=== PATIENT | male | born 1955 | race Caucasian/White ===

== ENCOUNTER → 2017-10-04 10:00 | Outpatient (CLI) | payer OTHER, SELFPAY ==
[2017-10-04 10:04] LABS: Bacteria 0 SEEN /hpf (None Seen); Mucous, Urine 0 SEEN /hpf (<or=2+); Red Blood Cells-Urine 0 SEEN /hpf (0-5); Squamous Epithelial Cells - UA 0 SEEN /hpf (0-5); White Blood Cells 0 SEEN /hpf (0-5)
[2017-10-04 12:30] LABS: ALB/GLOB Ratio 1.1 RATIO (0.9-2.4); AST(SGOT) 18 U/L (15-37); Alanine Aminotransfer ALT/SGPT 30 U/L (16-61); Albumin, Serum 3.9 g/dL (3.2-5.0); Alkaline Phosphatase 120 U/L (45-117); Anion Gap 9 (5-15); BUN 12 mg/dL (7-18); BUN/Creat Ratio 14.5 RATIO (10-20); Calcium,Total 8.6 mg/dL (8.5-10.1); Chloride 106 mmol/L (98-107); Cholesterol 152 mg/dL (200); Creatinine, Serum 0.83 mg/dL (0.70-1.30); EST Glomerular Filtration Rate 100 mL/min (>60); Est Glom Filt Rate - Afr Amer 121 mL/min (>60); Globulin 3.5 g/dL (2.2-4.2); Glucose 95 mg/dL (74-106); High Density Lipoprotein 49 mg/dL; PSA,Total - Annual Screen 0.91 ng/mL (0.00-4.00); Protein, Total 7.4 g/dL (6.4-8.2); Sodium Level 141 mmol/L (136-145); Thyroid Stim Hormone (TSH) 1.82 uIU/mL (0.358-3.74); Triglycerides 82 mg/dL; Very Low Density Lipoprotein 16 mg/dL (5-40)
[2017-10-04 12:46] LABS: Color, Urine Yellow (Yellow); Glucose, Dipstick Normal (Normal); Ketone-Dipstick 5 mg/dl (Negative); Leukocyte Esterase-Dipstick Negative /ul (Negative); Nitrite-Dipstick Negative (Negative); Occult Blood-Urine 10 /ul (Negative); Protein-Dipstick Negative (Negative); Specific Gravity, Urine 1.015 (1.002-1.030); Urine Bilirubin Dipstick Negative (Negative); Urine Clarity Clear (Clear); Urine Urobilinogen Normal (Normal)
[2017-10-04 12:58] LABS: Absolute Lymphocyte Count 6.29 X10^3/ul (0.83-4.51); Absolute Neutrophil Count 3.6 X10^3/uL (2.0-7.7); Basophil# 0.03 X10^3/uL; Basophil% 0.3 % (0-1); Eosinophil# 0.13 X10^3/uL; Eosinophils% 1.2 % (0-5); Hematocrit 48.4 % (40-54); Hemoglobin 16.5 g/dl (13.0-16.5); Lymphocyte # 6.29 X10^3/ul (4.0); Lymphocyte % 58.2 % (19-41); Mean Corp Hgb Conc 34.1 g/gl (32-36); Mean Corpuscular Hgb 33.5 pg (27.0-32.0); Mean Corpuscular Volume 98.4 fL (80-94); Mean Platelet Vol. 10.6 fl (6.2-12.0); Monocyte# 0.77 X10^3/uL; Monocyte% 7.1 % (0-10); Neutrophil # 3.56 X10^3/uL (2.7-7.7); Neutrophil % 32.9 % (47-70); Platelet Count 167 K/mm3 (150-450); RBC Distribution Width CV 12.7 % (11.6-14.6); RBC Distribution Width SD 45.1 fl (35.1-43.9); Red Blood Count 4.92 M/mm3 (4.6-6.2); White Blood Count 10.8 K/mm3 (4.4-11.0)
[2017-10-04 12:59] LABS: POSITIVE COUNT NO; POSITIVE DIFFERENTIAL YES; POSITIVE MORPHOLOGY NO
[2017-10-04 13:00] LABS: Differential Indicated SCAN CRITERIA MET
[2017-10-07 13:03] LABS: Pathologist Review Reviewed
== END ==
PROVIDERS: Family Provider Family Medicine; PCP Family Medicine; Visit Provider Family Medicine
DX: Z00.00 Encounter for general adult medical examination without abnormal findings (principal); Z13.29 Encounter for screening for other suspected endocrine disorder; Z13.220 Encounter for screening for lipoid disorders; Z12.5 Encounter for screening for malignant neoplasm of prostate; R06.02 Shortness of breath; Z87.891 Personal history of nicotine dependence
CPT/HCPCS: 36415; 80053; 80061; 81001; 84153; 84443; 85025; G0103

== ENCOUNTER → 2017-11-07 10:40 | Outpatient (CLI) | payer OTHER, SELFPAY ==
--- NOTE | 2017-11-08 06:03 | SPIR_ITS ---
Spirometry PFT Testing Spirometry PFT Testing: COMPLETE PULMONARY FUNCTION TEST INTERPRETATION Brief HPI: Patient is a 62 year old male, currently under the care of Dr. Araiza, who presents to [facility] for complete pulmonary function tests secondary to diagnosis of dyspnea on exertion. Respiratory therapist reports good effort and reproducible results. Interpretation: Forced expiration spirometry shows a moderate large airways obstructive ventilatory defect with an FEV1 of 66 % predicted. There is a significant bronchodilator response in FVC by ATS criteria. Spirograms are of good quality and plateau slowly, indicating slowly emptying areas of the lungs. The respiratory flow volume loop shows decreased expiratory flow rates at all lung volumes consistent with airway obstruction. No previous pulmonary function tests were available for review. Impression: Partially reversible moderate large airways obstructive ventilatory defect. Concomitant restriction cannot be excluded given decreased FVC. Consider lung volume measurements and DLCO for evaluation of COPD.
== END ==
PROVIDERS: Family Provider Family Medicine; PCP Family Medicine; Visit Provider Family Medicine
DX: R06.02 Shortness of breath (principal)
CPT/HCPCS: 94060

== ENCOUNTER → 2018-08-27 08:55 | Outpatient (CLI) | payer MEDICARE, BC, SELFPAY ==
--- NOTE | 2018-08-27 09:04 | US_ITS ---
PROCEDURES: ULTRASOUND AORTA REASON FOR EXAM: Male, 63 years old. Abdominal aortic aneurysm screening. History of tobacco use. TECHNIQUE: Ultrasound evaluation of the aorta was performed with real-time and static owens-scale imaging. COMPARISON: None. FINDINGS: There is no elongation or tortuosity of the abdominal aorta. The proximal, mid and distal abdominal aorta measure 2.7 x 2.5 cm, 1.6 x 2.1 cm and 1.7 x 2.0 cm in the AP and transverse dimensions respectively. Normal vascular flow. No significant intraluminal plaque. Common iliac arteries were not visualized. There is no demonstrated aneurysm.. US/Aorta IMPRESSION: Normal abdominal aorta. No abdominal aortic aneurysm. Electronically Signed: Carlos Otero MD at 7:39 EST , Service support ,
--- OUTSIDE RECORDS SUMMARY | 2018-10-29 05:30 | XMS RPT_ITS ---
:1955 Author Organization OHIP Care Team Providers Name Role Phone David Araiza Attending Unavailable David Araiza Referring Unavailable David Araiza Primary Care Unavailable David Araiza Attending Unavailable David Araiza Primary Care Unavailable David Araiza Attending Unavailable David Araiza Referring Unavailable David Araiza Primary Care Unavailable Tate Marrufo Attending Unavailable David Araiza Referring Unavailable PROBLEMS PROBLEMS No Problem Records FoundPROCEDURES PROCEDURES No Procedure Records FoundRESULTS RESULTS AORTA Observed: 08/27/2018 Status: F Source: SNELLING 9:04 AM [facility] REPOSITORY [facility] Imaging Services [address] [place] [address] Aorta MR#: [id number] Acct: [id number] Name: CHRISTIANO CRENSHAW Rep #: [id number] : 1955 M 63 From: Carlos Otero PCP: David Araiza MD Status: REG CLI Study: Aorta Date of Exam: 08/27/18 Exam# [id number] Ordering Dr: David Araiza MD PROCEDURES: ULTRASOUND AORTA REASON FOR EXAM: Male, 63 years old. Abdominal aortic aneurysm screening. History of tobacco use. TECHNIQUE: Ultrasound evaluation of the aorta was performed with real-time and static owens-scale imaging. COMPARISON: None. FINDINGS: There is no elongation or tortuosity of the abdominal aorta. The proximal, mid and distal abdominal aorta measure 2.7 x 2.5 cm, 1.6 x 2.1 cm and 1.7 x 2.0 cm in the AP and transverse dimensions respectively. Normal vascular flow. No significant intraluminal plaque. Common iliac arteries were not visualized. There is no demonstrated aneurysm.. US/Aorta IMPRESSION: Normal abdominal aorta. No abdominal aortic aneurysm. Electronically Signed: Carlos Otero MD at 7:39 EST , Service support , CC: David Araiza MD Coffee Taster: Signed SPIROMETRY PFT TESTING Observed: 11/08/2017 Status: F Source: SNELLING 6:03 AM [facility] REPOSITORY [facility] Pulmonary Services/Neurology [facility] [place] [address] MR#: [id number] Acct: [id number] Name: CHRISTIANO CRENSHAW Rep #: [id number] : 1955 62 From: Tate Marrufo MD Referring Dr: David Araiza MD Status: REG CLI Ordering Dr: Date: Location: PSN Sex: M C Spirometry PFT Testing Spirometry PFT Testing: COMPLETE PULMONARY FUNCTION TEST INTERPRETATION Brief HPI: Patient is a 62 year old male, currently under the care of Dr. Araiza, who presents to [facility] for complete pulmonary function tests secondary to diagnosis of dyspnea on exertion. Respiratory therapist reports good effort and reproducible results. Interpretation: Forced expiration spirometry shows a moderate large airways obstructive ventilatory defect with an FEV1 of 66 % predicted. There is a significant bronchodilator response in FVC by ATS criteria. Spirograms are of good quality and plateau slowly, indicating slowly emptying areas of the lungs. The respiratory flow volume loop shows decreased expiratory flow rates at all lung volumes consistent with airway obstruction. No previous pulmonary function tests were available for review. Impression: Partially reversible moderate large airways obstructive ventilatory defect. Concomitant restriction cannot be excluded given decreased FVC. Consider lung volume measurements and DLCO for evaluation of COPD. 11/08/17602 <Electronically signed by Tate Marrufo MD> Date Tate Marrufo MD CC: Date Dictated: 11/08/17600 Date Transcribed: 11/08/17600 Coffee Taster: IAM Signed COMPREHENSIVE METABOLIC Collected: 10/04/2017 Status: F Source: GAURANG GOMEZ 10:03 AM [facility] REPOSITORY Order Comment: Order Date: 10/04/17 Order Info: [id number] - CMP Order Info: [id number] - LIPID Order Info: [id number] - TSH Order Info: 2857-1 - PSA TYPE CODE TESTS RESULT OUT OF RANGE REFERENCE UNITS LAB L501.0100 74-106 mg/dL Normal GLU 95 Result Comment: Please note revised GLUCOSE reference range effective 2017. LAB L501.1000 7-18 mg/dL Normal BUN 12 LAB L501.1100 0.70-1.30 mg/dL Normal CREAT,SERUM 0.83 Result Comment: The validity of the calculated GFR AND GFRAA in patients over 70 years has not been determined. Clinical correlation is essential. LAB L501.1110 >60 mL/min Normal EST GFR 100 Result Comment: Non- GFR Calc LAB L501.1115 >60 mL/min Normal EST GFR - AA 121 Result Comment: GFR Calc LAB L501.1300 10-20 RATIO Normal BUN/CRE 14.5 LAB L501.1500 6.4-8.2 g/dL T Normal PROT 7.4 LAB L501.1800 3.2-5.0 g/dL Normal ALB 3.9 LAB L501.1950 2.2-4.2 g/dL Normal GLOB 3.5 LAB L501.2000 0.9-2.4 RATIO Normal A/G 1.1 LAB L501.2200 8.5-10.1 mg/dL CA Normal 8.6 LAB L501.4100 15-37 U/L Normal AST 18 LAB L501.4305 45-117 U/L High ALK P 120 LAB L501.4405 16-61 U/L Normal ALT 30 Result Comment: Please note revised ALT reference range effective 2017. LAB L501.4600 0.20-1.00 mg/dL Normal T BILI 0.80 LAB L501.5300 136-145 mmol/L Normal NA 141 LAB L501.5600 3.5-5.1 mmol/L Normal K 4.0 LAB L501.5900 98-107 mmol/L Normal CL 106 LAB L501.6100 21.0-32.0 mmol/L Normal CO2 26.0 LAB L501.6200 5-15 Normal GAP 9 Performed By: #### L500.4050, L500.4100, L501.9520, L501.9910, L100.0100 #### [facility] Laboratory [address] [place], [address] LIPID PROFILE Collected: 10/04/2017 Status: F Source: GAURANG 10:03 AM [facility] REPOSITORY Order Comment: Order Date: 10/04/17 Order Info: [id number] - CMP Order Info: [id number] - LIPID Order Info: [id number] - TSH Order Info: 2857-1 - PSA TYPE CODE TESTS RESULT OUT OF RANGE REFERENCE UNITS LAB L501.4900 200 mg/dL Normal CHOL 152 Result Comment: <200 mg/dL Desirable 200-240 mg/dL Borderline >240 mg/dL High Risk LAB L501.5000 mg/dL Normal TRIG 82 Result Comment: The drugs N-Acetylcysteine and Metamizole may falsely depress this assay. Serum Triglycerides Reference Interval Normal <150 mg/dL Borderline high 150 - 199 mg/dL High 200 - 499 mg/dL Very High > or = 500 mg/dL LAB L501.6400 mg/dL Normal HDL 49 Result Comment: The drugs N-Acetylcysteine and Metamizole may falsely depress this assay. Reference Range HDL <40 mg/dL Low HDL Cholesterol HDL >or= 60 mg/dL High HDL Cholesterol LAB L501.6500 0-130 mg/dL Normal LDL 87 LAB L501.6600 5-40 mg/dL Normal VLDL 16 Performed By: #### L500.4050, L500.4100, L501.9520, L501.9910, L100.0100 #### [facility] Laboratory [address] [place], [address] THYROID STIM HORMONE Collected: 10/04/2017 Status: F Source: GAURANG (TSH) 10:03 AM [facility] REPOSITORY Order Comment: Order Date: 10/04/17 Order Info: [id number] - CMP Order Info: [id number] - LIPID Order Info: [id number] - TSH Order Info: 2857-1 - PSA TYPE CODE TESTS RESULT OUT OF RANGE REFERENCE UNITS LAB L501.9520 0.358-3.74 uIU/mL Normal TSH 1.82 Performed By: #### L500.4050, L500.4100, L501.9520, L501.9910, L100.0100 #### [facility] Laboratory [address] [place], [address] PSA,TOTAL - ANNUAL Collected: 10/04/2017 Status: F Source: GAURANG SCREEN 10:03 AM [facility] REPOSITORY Order Comment: Order Date: 10/04/17 Order Info: [id number] - CMP Order Info: [id number] - LIPID Order Info: [id number] - TSH Order Info: 2857-1 - PSA TYPE CODE TESTS RESULT OUT OF RANGE REFERENCE UNITS LAB L501.9910 0.00-4.00 ng/mL Normal PSA,TOT 0.91 SCREEN Result Comment: This test was performed using the TPSA assay method for the Neuronex chemistry system. Values obtained with different assay methods cannot be used interchangably. When changing PSA assays in the course of monitoring a patient, additional sequential testing should be carried out to confirm baseline values. Performed By: #### L500.4050, L500.4100, L501.9520, L501.9910, L100.0100 #### [facility] Laboratory [address] [place], [address] CBC W/DIFF, AUTOMATED Collected: 10/04/2017 Status: C Source: GAURANG 10:03 AM [facility] REPOSITORY Order Comment: Order Date: 10/04/17 Order Info: [id number] - CBCD TYPE CODE TESTS RESULT OUT OF RANGE REFERENCE UNITS LAB L100.1000 4.4-11.0 K/mm3 Normal WBC 10.8 LAB L100.1200 4.6-6.2 M/mm3 Normal RBC 4.92 LAB L100.1300 13.0-16.5 g/dl Normal HGB 16.5 LAB L100.1400 40-54 % Normal HCT 48.4 LAB L100.1500 80-94 fL High MCV 98.4 LAB L100.1600 27.0-32.0 pg High MCH 33.5 LAB L100.1700 32-36 g/gl Normal MCHC 34.1 LAB L100.1810 11.6-14.6 % Normal RDW CV 12.7 LAB L100.1820 35.1-43.9 fl High RDW SD 45.1 LAB L100.1900 150-450 K/mm3 Normal PLT 167 LAB L100.2000 6.2-12.0 fl Normal MPV 10.6 LAB L100.2100 47-70 % Low NEUT% 32.9 LAB L100.2200 19-41 % High LY% 58.2 LAB L100.2300 0-10 % Normal MONO% 7.1 LAB L100.2400 0-5 % Normal EO% 1.2 LAB L100.2500 0-1 % Normal BASO% 0.3 LAB L100.2550 0.0-0.9 % Normal IM GRAN % 0.300 Result Comment: IG% - Immature Granulocytes (promyelocytes, myelocytes and metamyelocytes) > 1% indicates that a LEFT SHIFT is Present. LAB L100.2620 2.0-7.7 X10 3/uL Normal Absolute Neut 3.6 LAB L100.2720 0.83-4.51 X10 3/ul High Absolute Lymph 6.29 LAB L100.4500 SMEAR Normal COMMENT Result Comment: LYMPHOCYTOSIS NOTED, 2+ REACTIVE LYMPHOCYTES, RARE HYPERSEGMENTED NEUTROPHILS LAB L100.9900 Normal Reviewed PATH REV Result Comment: AMENDED REPORT 10/07/17 1303 PATH REV previously reported as: May foll Performed By: #### L500.4050, L500.4100, L501.9520, L501.9910, L100.0100 #### [facility] Laboratory [address] [place], [place], [address] URINALYSIS, COMPLETE Collected: 10/04/2017 Status: F Source: SNELLING 10:03 AM [facility] REPOSITORY Order Comment: How was Urine Obtained? CLEAN CATCH TYPE CODE TESTS RESULT OUT OF RANGE REFERENCE UNITS LAB L400.3000 Yellow COLOR Normal Yellow LAB L400.3050 Clear Normal CLARITY Clear LAB L400.3200 Normal mg/dl Normal GLUCOSE, UR Normal LAB L400.3300 Negative mg/dL Normal BILIRUBIN URINE Negative LAB L400.3400 Negative mg/dl High 5 KETONE UR LAB L400.3465 1.002-1.030 Normal SP.GR. DIPSTX 1.015 LAB L400.3550 5.0 - 8.0 pH UR Normal 8.0 LAB L400.3600 Negative mg/dl PROT Normal DIPSTX Negative LAB L400.3700 Normal mg/dl Normal UROBILI Normal LAB L400.3750 Negative Normal NITRITE UR Negative LAB L400.3780 Negative /ul High 10 OCCULT BLOOD-UR LAB L400.3800 Negative /ul LEUK Normal ESTERASE Negative LAB L400.4050 0-5 /hpf WBC 0 Normal SEEN LAB L400.4100 0-5 /hpf 0 Normal RBC-UA SEEN LAB L400.4150 0-5 /hpf SQUAM 0 Normal EPI SEEN LAB L400.4300 None Seen /hpf 0 Normal BACTERIA SEEN LAB L400.4350 <or=2+ /hpf 0 Normal MUCUS, URINE SEEN Performed By: #### L400.0001 #### [facility] Laboratory [address] [place], [address] ALLERGIES ALLERGIES No Allergies Records FoundENCOUNTERS ENCOUNTERS ADMIT/DISCHARGE ACCOUNT ADMITTING ENCOUNTER LOCATION SOURCE NUMBER CLASS 08/27/2018 [id number] Ambulatory [facility] 4 [facility] ing:US Repository 11/08/2017 [id number] Ambulatory BMSBuilding:W [place] 8 [facility] Repository 11/07/2017 [id number] Ambulatory [facility] 2 [facility] ing:PSN Repository 10/04/2017 [id number] Ambulatory [facility] 7 [facility] ing:MFPLAB Repository PAYERS PAYERS ENCOUNTER GUARANTOR PAYER SUBSCRIBER SOURCE 08/27/2018 CHRISTIANO Lundy Primary CHRISTIANO Vázquez [id number] Insurance:MEDICARE KENDALLDOB[facility] [id number] Number: Repository [address]Vgu: [phone] [id number] [phone] (HP) Date:2018-08-20 08/27/2018 Secondary CHRISTIANO Kamron [place] Insurance:ANTHEMPolic KENDALLDOB: Community y Number: [id number] [id number] Repository Date:9221-58-08QT [address] [place] [address]MZ: 08/27/2018 Tertiary NOT GIVENUNK [place] Insurance:SELF PAY [facility] Number: Effective Repository Date:2018-08-20 11/08/2017 Christiano E Primary ART Vázquez [id number] Insurance:MEDICAL KENDALLDOB: [facility] [id number] Number: Repository [id number]: [id number] [phone] Date:5272-38-62IO [address] () [address] [place] [address]AY: 11/08/2017 Secondary NOT GIVENUNK [place] Insurance:SELF PAY [facility] Number: Effective Repository Date:2017-11-08 11/07/2017 Christiano E Primary ART Vázquez [id number] Insurance:MEDICAL KENDALLDOB: [facility] [id number] Number: Repository [id number]: [id number] [phone] Date:1734-22-80GF [address] () [address] [address]KK: 11/07/2017 Secondary NOT GIVENUNK [place] Insurance:SELF PAY [facility] Number: Effective Repository Date:2017-10-07 10/04/2017 Christiano Lundy Primary ART Farooq [place] [id number] Insurance:MEDICAL KENDALLDOB[facility] [id number] Number: Repository [id number]: [id number] [phone] Date:4650-10-09NM [address] ([address]) [address] [address]MQ: 10/04/2017 Secondary NOT GIVENUNK [place] Insurance:SELF PAY [facility] Number: Effective Repository Date:2017-10-04
== END ==
PROVIDERS: Family Provider Family Medicine; PCP Family Medicine; Referring Provider Family Medicine; Visit Provider Family Medicine
DX: Z13.6 Encounter for screening for cardiovascular disorders (principal); I10 Essential (primary) hypertension
CPT/HCPCS: 76775

== ENCOUNTER → 2020-02-24 10:45 | Outpatient (CLI) | payer MEDICARE, BC, SELFPAY ==
[2020-02-24 10:50] LABS: Bacteria 0 SEEN /hpf (None Seen); Mucous, Urine 0 SEEN /hpf (<or=2+); Red Blood Cells-Urine 0 SEEN /hpf (0-5); Squamous Epithelial Cells - UA 0 SEEN /hpf (0-5); White Blood Cells 0 SEEN /hpf (0-5)
[2020-02-24 12:38] LABS: Color, Urine Yellow (Yellow); Glucose, Dipstick Normal (Normal); Ketone-Dipstick Negative (Negative); Leukocyte Esterase-Dipstick Negative /ul (Negative); Nitrite-Dipstick Negative (Negative); Occult Blood-Urine 25 /ul (Negative); Protein-Dipstick Negative (Negative); Urine Bilirubin Dipstick Negative (Negative); Urine Clarity Sl. Cloudy (Clear); Urine Urobilinogen Normal (Normal); Urine pH 6.5 (5.0 - 8.0)
[2020-02-24 12:40] LABS: Absolute Lymphocyte Count 4.48 X10^3/uL (0.83-4.51); Absolute Neutrophil Count 3.1 X10^3/uL (2.0-7.7); Basophil# 0.04 X10^3/uL; Basophil% 0.5 % (0-1); Eosinophil# 0.16 X10^3/uL; Eosinophils% 1.8 % (0-5); Hematocrit 45.4 % (40-54); Hemoglobin 15.5 g/dL (13.0-16.5); Lymphocyte # 4.48 X10^3/ul (4.0); Lymphocyte % 51.7 % (19-41); Mean Corp Hgb Conc 34.1 g/dL (32-36); Mean Corpuscular Hgb 33.3 pg (27.0-32.0); Mean Corpuscular Volume 97.6 fL (80-94); Mean Platelet Vol. 10.9 fl (6.2-12.0); Monocyte# 0.79 X10^3/uL; Monocyte% 9.1 % (0-10); NRBC Flagged by Analyzer 0 % (0-5); Neutrophil # 3.14 X10^3/uL (2.7-7.7); Neutrophil % 36.3 % (47-70); Platelet Count 161 K/mm3 (150-450); RBC Distribution Width CV 12.1 % (11.6-14.6); RBC Distribution Width SD 43.5 fl (35.1-43.9); Red Blood Count 4.65 M/mm3 (4.6-6.2); White Blood Count 8.7 K/mm3 (4.4-11.0)
[2020-02-24 13:04] LABS: ALB/GLOB Ratio 1.1 RATIO (0.9-2.4); AST(SGOT) 17 U/L (15-37); Alanine Aminotransfer ALT/SGPT 29 U/L (16-61); Albumin, Serum 3.8 g/dL (3.2-5.0); Alkaline Phosphatase 99 U/L (45-117); Anion Gap 3 (5-15); BUN 15 mg/dL (7-18); BUN/Creat Ratio 16.1 RATIO (10-20); Calcium,Total 8.9 mg/dL (8.5-10.1); Chloride 102 mmol/L (98-107); Creatinine, Serum 0.93 mg/dL (0.70-1.30); EST Glomerular Filtration Rate 86 mL/min (>60); Est Glom Filt Rate - Afr Amer 104 mL/min (>60); Globulin 3.4 g/dL (2.2-4.2); Glucose 106 mg/dL (74-106); Protein, Total 7.2 g/dL (6.4-8.2); Sodium Level 137 mmol/L (136-145)
== END ==
PROVIDERS: PCP Family Medicine; Referring Provider Family Medicine; Visit Provider Family Medicine
DX: I10 Essential (primary) hypertension (principal)
CPT/HCPCS: 36415; 80053; 81001; 85025

== ENCOUNTER → 2020-03-04 14:28 | Outpatient (CLI) | payer MEDICARE, BC, SELFPAY ==
--- NOTE | 2020-03-04 14:31 | US_ITS ---
STUDY: NECK SOFT TISSUE ULTRASOUND REASON FOR EXAM: Male, 64 years old. palp lump on right neck TECHNIQUE: Ultrasound evaluation of the neck was performed with real-time and static owens-scale imaging. COMPARISON: None. FINDINGS: The right parotid gland measures 5.5 x 4.8 x 1.4 cm. 2 nodules within the right parotid gland are noted measuring 1.4 x 1.2 x 1.1 cm and 0.5 x 0.3 x 0.3 cm. The larger nodule is heterogeneously hypoechoic possibly complex cystic in nature. The smaller nodule appears to be a simple cyst The left parotid gland measures 4.8 x 4.2 x 1.5 cm with a 6 x 4 x 5 mm cystic nodule noted.. US/Head/Neck Soft Tissue IMPRESSION: Cystic nodules are noted of the parotid glands bilaterally. Electronically Signed: Rehan Faustin DO at 15:19 EDT Tel [phone], Service support ,
--- NOTE | 2020-03-04 14:55 | CT_ITS ---
STUDY: LOW DOSE CT LUNG CANCER SCREENING REASON FOR EXAM: Male, 64 years old. SCREENING, TOBACCO USE 30 YEARS 3 PPD QUIT 15 YEARS AGO RADIATION DOSAGE (If Supplied By Facility): CTDIvol = ( 4.02 ) mGy, DLP = ( 174.61 ) mGycm TECHNIQUE: No contrast was administered. Low dose technique was utilized (average mAS-38 and kVp 120). 1.25 mm axial source images with a slice interval of 1.25-mm were reconstructed in lung windows. 2.5 mm axial source images with a slice interval of 2.5-mm were reconstructed in lung windows. 5.0 mm axial source images with a slice interval of 5.0-mm were reconstructed in soft tissue windows. Nodule measured using lung windows on PACS and/or independent workstation with automated measurement of minimum and maximum diameter. Nodule measurement reported as average diameter rounded to the nearest whole number. Growth is defined as an increase ins size of greater than 1.5 mm. COMPARISON: None. Findings: There are no high-risk focal pulmonary findings. There is a benign-appearing elongated right upper lobe anterior segment 5 mm nodule. There is right middle lobe and lingula scarring. Lungs are mildly emphysematous. Airways are patent. Mediastinal contents are normal. There is moderate coronary artery disease. Osseous structures are intact. CT/Low Dose CT Lung Screening IMPRESSION: Lung RADS category 2. Mild emphysema. IMPORTANT NOTES FOR USE: ACR Lung-RADS Version 1.0 Assessment Categories Release Date: November 30, 2013 Category: Coded 0-4 bases on nodule(s) with highest degree of suspicion. Negative screen is defined as categories 1 and 2; a positive screen is defined as categories 3 and 4. Category 3 and 4A nodules that are unchanged on interval CT should be coded as category 2, and individuals returned to screening in 12 months. Category 4X: Category 3 or 4 nodules with additional imaging findings that increase the suspicion of lung cancer, such as spiculation, GGN that doubles in size in 1 year, enlarged lymph notes, etc. Category Modifiers: S (significant finding unrelated to lung cancer) and C (prior history of treated lung cancer) may be added to the 0-4 Lung-RADS Electronically Signed: Joel Kuo, at 15:39 EDT Tel , Service support ,
== END ==
PROVIDERS: PCP Family Medicine; Referring Provider Family Medicine; Visit Provider Family Medicine
DX: R22.0 Localized swelling, mass and lump, head (principal); Z12.2 Encounter for screening for malignant neoplasm of respiratory organs; Z87.891 Personal history of nicotine dependence
CPT/HCPCS: 76536; G0297

== ENCOUNTER → 2020-03-10 15:30 | Outpatient (CLI) | payer MEDICARE, BC, SELFPAY ==
--- NOTE | 2020-03-10 | FLU_PTH ---
PATIENT: REID CRENSHAW LOC: [facility] U#:[id number] AGE/SX: 69/M ROOM: RE03/10/[address]: Dr. Alvaro Saba MD : 1955 BED: DIS: SPEC #: [id number] RECD: 03/10/20 18:30 STATUS: PAT ABDI #: [id number] MOON: 03/10/20 00:[address]: Alvaro Saba DEPT: CYTOLOGY RECD BY: Brendan Alicia ENTERED: 03/11/20 08:34 SP TYPE: Fluid OTHR DR: Dr. David Araiza MD Tissues: Parotid gland, NOS Procedures: Special Stain Group II Surgery Specimen Level IV Cytospin Fluid HEADER OPERATION: FNA right parotid cyst PRE-OP DIAGNOSIS: Cyst right parotid TISSUE SUBMITTED: Right parotid lump (cyst) DIAGNOSIS CYTOLOGY Fine needle aspiration, right parotid cyst (cytospin and cell block): Macrophages and blood consistent with benign cyst contents. AM:janiya 03/14/20 CYTOLOGY STUDY Slides are reviewed. CYTOLOGY GROSS Received is 40 ml of pink cloudy fluid labeled with the patient's name and and designated per the requisition as right parotid. Submitted for cytology preparation including cell block. / janiya 03/11/20 TC:5 CPT: 13403, 95454
== END ==
PROVIDERS: PCP Family Medicine; Visit Provider Otolaryngology
DX: K11.6 Mucocele of salivary gland (principal)
CPT/HCPCS: 88108; 88305; 88313

== ENCOUNTER 2020-10-06 09:22 | Outpatient (RCR) | payer MEDICARE, BC, SELFPAY ==
[2020-10-06] MEDS: COVID-19 VACC, MRNA(PFIZER)/PF 30 MCG/0.3 ML SYRINGE IM (11:50)
[2020-10-27] MEDS: COVID-19 VACC, MRNA(PFIZER)/PF 30 MCG/0.3 ML SYRINGE IM (11:15)
== END 2020-10-06 23:59 ==
LOC: IMMUN 09:22
PROVIDERS: PCP Family Medicine; Visit Provider Family Medicine
DX: Z23 Encounter for immunization (principal)
CPT/HCPCS: 0001A; 0002A; 91300

== ENCOUNTER → 2021-02-27 10:20 | Outpatient (CLI) | payer MEDICARE, BC, SELFPAY ==
[2021-02-27 12:18] LABS: Absolute Lymphocyte Count 6.53 X10^3/uL (0.83-4.51); Absolute Neutrophil Count 3.5 X10^3/uL (2.0-7.7); Basophil# 0.05 X10^3/uL; Basophil% 0.5 % (0-1); Eosinophil# 0.09 X10^3/uL; Eosinophils% 0.8 % (0-5); Hematocrit 47.7 % (40-54); Hemoglobin 16.5 g/dL (13.0-16.5); Lymphocyte # 6.53 X10^3/ul (0.83-4.51); Lymphocyte % 59.1 % (19-41); Mean Corp Hgb Conc 34.6 g/dL (32-36); Mean Corpuscular Hgb 32.9 pg (27.0-32.0); Mean Corpuscular Volume 95.2 fL (80-94); Mean Platelet Vol. 10.5 fl (6.2-12.0); Monocyte# 0.85 X10^3/uL; Monocyte% 7.7 % (0-10); NRBC Flagged by Analyzer 0 % (0-5); Neutrophil # 3.47 X10^3/uL (2.7-7.7); Neutrophil % 31.4 % (47-70); POSITIVE DIFFERENTIAL YES; POSITIVE MORPHOLOGY YES; Platelet Count 165 K/mm3 (150-450); RBC Distribution Width CV 12.2 % (11.6-14.6); RBC Distribution Width SD 42.1 fl (35.1-43.9); Red Blood Count 5.01 M/mm3 (4.6-6.2); White Blood Count 11.1 K/mm3 (4.4-11.0)
[2021-02-27 12:19] LABS: Differential Indicated SCAN CRITERIA MET
[2021-02-27 12:45] LABS: Microalbumin,Random Urine 8.2 mg/L (NO RANGE EST.); Microalbumin:Creatinine Ratio 8.3 mg/g CRE (<30 mg/g CRE)
[2021-02-27 12:59] LABS: Platelet Estimate ADEQUATE (ADEQ); Red Cell Morphology NORM C+C NORMAL (NORM C&C)
[2021-02-27 13:00] LABS: Atypical Lymphocyte 1+ %; Reactive Lymphocyte 1+
[2021-02-27 13:16] LABS: ALB/GLOB Ratio 1.1 RATIO (0.9-2.4); AST(SGOT) 22 U/L (15-37); Alanine Aminotransfer ALT/SGPT 37 U/L (16-61); Alkaline Phosphatase 117 U/L (45-117); Anion Gap 7 (5-15); BUN 13 mg/dL (7-18); BUN/Creat Ratio 15.3 RATIO (10-20); Calcium,Total 8.9 mg/dL (8.5-10.1); Chloride 104 mmol/L (98-107); Cholesterol 192 mg/dL (200); Creatinine, Serum 0.85 mg/dL (0.70-1.30); EST Glomerular Filtration Rate 96 mL/min (>60); Est Glom Filt Rate - Afr Amer 116 mL/min (>60); Globulin 3.8 g/dL (2.2-4.2); Glucose 104 mg/dL (74-106); High Density Lipoprotein 44 mg/dL; Potassium 3.3 mmol/L (3.5-5.1); Protein, Total 7.8 g/dL (6.4-8.2); Sodium Level 139 mmol/L (136-145); Thyroid Stim Hormone (TSH) 1.14 uIU/mL (0.358-3.74); Triglycerides 188 mg/dL; Very Low Density Lipoprotein 38 mg/dL (5-40)
[2021-02-28 12:16] LABS: Pathologist Review Reviewed
== END ==
PROVIDERS: PCP Family Medicine; Visit Provider Family Medicine
DX: I10 Essential (primary) hypertension (principal)
CPT/HCPCS: 36415; 80053; 80061; 82043; 82570; 84443; 85025

== ENCOUNTER → 2021-03-09 16:40 | Outpatient (CLI) | payer MEDICARE, BC, SELFPAY ==
--- NOTE | 2021-03-09 16:50 | CT_ITS ---
STUDY: LOW DOSE CT LUNG CANCER SCREENING REASON FOR EXAM: Male, 65 years old. HO TOBACCO USE RADIATION DOSAGE (If Supplied By Facility): CTDIvol = ( 3.18 ) mGy, DLP = ( 131.95 ) mGycm TECHNIQUE: No contrast was administered. Low dose technique was utilized (average mAS-38 and kVp 120). 1.25 mm axial source images with a slice interval of 1.25-mm were reconstructed in lung windows. 2.5 mm axial source images with a slice interval of 2.5-mm were reconstructed in lung windows. 5.0 mm axial source images with a slice interval of 5.0-mm were reconstructed in soft tissue windows. Nodule measured using lung windows on PACS and/or independent workstation with automated measurement of minimum and maximum diameter. Nodule measurement reported as average diameter rounded to the nearest whole number. Growth is defined as an increase ins size of greater than 1.5 mm. COMPARISON: 03/04/2020 NODULES: Nodule #: 1 Density: Solid Lung location: Right lower lobe: Less than 1 cm from pleura Location in series: Series Number: 2 Image: 151 Size - D1 x D2 mm: 3 x 3 mm: 3 average diameter Margin: Smooth Shape: Round Calcification: None Fat: None Temporal comparison: Stable Nodule #: 2 Density: Solid Lung location: Right upper lobe: 1.3 cm from pleura Location in series: Series Number: 2 Image: 59 Size - D1 x D2 mm: 4 x 4 mm: 4 average diameter Margin: Smooth Shape: Round Calcification: None Fat: None Temporal comparison: Stable Total lung nodules (excluding granulomas): 2 Emphysema: Mild Endobronchial lesion: None Aorta: Mild scattered atherosclerosis. Coronary arteries: Mild coronary artery atherosclerosis Heart: Normal size, no pericardial thickening. Pulmonary artery: Unremarkable for unopacified technique Mediastinal nodes: No soft tissue adenopathy Other chest and abdominal findings: None significant CT/Low Dose CT Lung Screening IMPRESSION: Lung-RADS category 2 - Continue annual screening with LDCT in 12 months. IMPORTANT NOTES FOR USE: ACR Lung-RADS Version 1.1 Assessment Categories Release Date: 2018 Category: Coded 0-4 bases on nodule(s) with highest degree of suspicion. Negative screen is defined as categories 1 and 2; a positive screen is defined as categories 3 and 4. Category 3 and 4A nodules that are unchanged on interval CT should be coded as category 2, and individuals returned to screening in 12 months. Category 4X: Category 3 or 4 nodules with additional imaging findings that increase the suspicion of lung cancer, such as spiculation, GGN that doubles in size in 1 year, enlarged lymph notes, etc. Category Modifiers: S (significant finding unrelated to lung cancer) Electronically Signed: Ady Castillo MD (Brooks) at 11:32 EDT , Service support ,
== END ==
PROVIDERS: PCP Family Medicine; Referring Provider Family Medicine; Visit Provider Family Medicine
DX: Z87.891 Personal history of nicotine dependence (principal)
CPT/HCPCS: 71271

== ENCOUNTER → 2021-03-10 08:48 | Outpatient (CLI) | payer MEDICARE, BC, SELFPAY ==
[2021-03-10 10:26] LABS: Potassium 3.3 mmol/L (3.5-5.1)
== END ==
PROVIDERS: PCP Family Medicine; Visit Provider Family Medicine
DX: E87.6 Hypokalemia (principal)
CPT/HCPCS: 36415; 84132

== ENCOUNTER → 2021-03-30 13:41 | Outpatient (CLI) | payer MEDICARE, BC, SELFPAY ==
[2021-03-30 15:17] LABS: Anion Gap 6 (5-15); BUN 14 mg/dL (7-18); BUN/Creat Ratio 16.2 RATIO (10-20); Calcium,Total 8.7 mg/dL (8.5-10.1); Chloride 107 mmol/L (98-107); Creatinine, Serum 0.86 mg/dL (0.70-1.30); EST Glomerular Filtration Rate 94 mL/min (>60); Est Glom Filt Rate - Afr Amer 114 mL/min (>60); Glucose 101 mg/dL (74-106); Potassium 3.8 mmol/L (3.5-5.1); Sodium Level 140 mmol/L (136-145)
== END ==
PROVIDERS: PCP Family Medicine; Visit Provider Registered Nurse
DX: E87.6 Hypokalemia (principal)
CPT/HCPCS: 36415; 80048

== ENCOUNTER → 2021-06-01 11:07 | Outpatient (CLI) | payer MEDICARE, BC, SELFPAY ==
[2021-06-01 11:12] LABS: Bacteria 0 SEEN /hpf (None Seen); Mucous, Urine 0 SEEN /hpf (<or=2+); Red Blood Cells-Urine 0 SEEN /hpf (0-5); Squamous Epithelial Cells - UA 0 SEEN /hpf (0-5); White Blood Cells 0 SEEN /hpf (0-5)
[2021-06-01 15:14] LABS: Absolute Lymphocyte Count 4.18 X10^3/uL (0.83-4.51); Absolute Neutrophil Count 3.2 X10^3/uL (2.0-7.7); Basophil# 0.04 X10^3/uL; Basophil% 0.5 % (0-1); Eosinophil# 0.14 X10^3/uL; Eosinophils% 1.7 % (0-5); Hematocrit 45.9 % (40-54); Hemoglobin 15.9 g/dL (13.0-16.5); Lymphocyte # 4.18 X10^3/ul (0.83-4.51); Lymphocyte % 49.9 % (19-41); Mean Corp Hgb Conc 34.6 g/dL (32-36); Mean Corpuscular Hgb 33.3 pg (27.0-32.0); Mean Platelet Vol. 10.1 fl (6.2-12.0); Monocyte# 0.76 X10^3/uL; Monocyte% 9.1 % (0-10); NRBC Flagged by Analyzer 0 % (0-5); Neutrophil # 3.19 X10^3/uL (2.7-7.7); Neutrophil % 38.1 % (47-70); Platelet Count 143 K/mm3 (150-450); RBC Distribution Width CV 12.7 % (11.6-14.6); RBC Distribution Width SD 44.4 fl (35.1-43.9); Red Blood Count 4.78 M/mm3 (4.6-6.2); White Blood Count 8.4 K/mm3 (4.4-11.0)
[2021-06-01 15:16] LABS: Color, Urine Yellow (Yellow); Glucose, Dipstick Normal (Normal); Ketone-Dipstick Negative (Negative); Leukocyte Esterase-Dipstick Negative /ul (Negative); Nitrite-Dipstick Negative (Negative); Occult Blood-Urine Negative /ul (Negative); Protein-Dipstick Negative (Negative); Urine Bilirubin Dipstick Negative (Negative); Urine Clarity Clear (Clear); Urine Urobilinogen Normal (Normal)
[2021-06-01 15:34] LABS: AST(SGOT) 18 U/L (15-37); Alanine Aminotransfer ALT/SGPT 26 U/L (16-61); Albumin, Serum 3.6 g/dL (3.2-5.0); Alkaline Phosphatase 121 U/L (45-117); Anion Gap 7 (5-15); BUN 14 mg/dL (7-18); BUN/Creat Ratio 15.1 RATIO (10-20); Chloride 107 mmol/L (98-107); Cholesterol 160 mg/dL (200); Creatinine, Serum 0.93 mg/dL (0.70-1.30); EST Glomerular Filtration Rate 86 mL/min (>60); Est Glom Filt Rate - Afr Amer 104 mL/min (>60); Globulin 3.7 g/dL (2.2-4.2); Glucose 83 mg/dL (74-106); High Density Lipoprotein 42 mg/dL; Potassium 4.1 mmol/L (3.5-5.1); Protein, Total 7.3 g/dL (6.4-8.2); Sodium Level 140 mmol/L (136-145); Thyroid Stim Hormone (TSH) 1.42 uIU/mL (0.358-3.74); Triglycerides 120 mg/dL; Very Low Density Lipoprotein 24 mg/dL (5-40)
== END ==
PROVIDERS: PCP Family Medicine; Referring Provider Family Medicine; Visit Provider Family Medicine
DX: J44.9 Chronic obstructive pulmonary disease, unspecified (principal); I10 Essential (primary) hypertension
CPT/HCPCS: 36415; 80053; 80061; 81001; 84443; 85025

== ENCOUNTER → 2021-06-08 06:02 | Outpatient (CLI) | payer MEDICARE, BC, SELFPAY ==
--- NOTE | 2021-06-09 13:54 | STRESSREP ---
Stress Test Report Date: 06/08/2021 Procedure: Pharmacologic stress nuclear imaging study Indications: Abnormal EKG, preop evaluation Consent: Per the patient Procedure: The patient underwent pharmacologic (Regadenoson) evaluation with a peak heart rate of 100 beats per minute (65%predicted maximal heart rate) and a peak blood pressure of 140/72 mmHg. The baseline ECG demonstrated normal sinus rhythm. EKG during lexiscan infusion revealed no significant ischemic changes. EKG post infusion revealed no significant ischemic changes [There were no cardiac dysrhythmias pretest, during pharmacologic infusion, or recovery]. [There was no complaint of chest discomfort during pharmacologic infusion or recovery]. The examination was discontinued secondary to completion of protocol. Impression: 1. Lexiscan stress test test is negative for Lexiscan infusion induced EKG changes of ischemia. 2. Lexiscan stress test test is negative for Lexiscan infusion induced chest pain. 3. Results of the nuclear portion of the test is as below Myocardial perfusion imaging study: Technique: The patient was injected with 14.6 millicuries of technetium 99m Cardiolite and subsequently rest SPECT Cardiolite nuclear imaging was obtained in the horizontal long, vertical long, and short axis views. The patient underwent pharmacologic [Regadenoson 0.4mg] evaluation. Please see above for details. The patient was injected with 34.1 millicuries of technetium 99m Cardiolite and subsequently stress SPECT Cardiolite nuclear imaging was obtained in the horizontal long, vertical long, and short axis views. A gated Cardiolite study at peak stress was obtained. Interpretation: Rest and stress SPECT Cardiolite nuclear imaging status post realignment, normalization, and attenuation correction demonstrate mildly decreased radioisotope uptake in the inferior wall on both the rest and stress images prior to attenuation correction. After attenuation correction there is normal myocardial radioisotope uptake. These findings are suggestive of diaphragmatic attenuation artifact. There is no evidence of significant ischemia or infarction. Gated images reveal no significant regional wall motion abnormalities. The reported LVEF is greater than 70%. Impression: 1. There is no evidence of significant ischemia or infarction. 2. Estimated ejection fraction is greater than 70%. This note was generated with [employer] software. It may contain incorrect words, spelling, and punctuation that were not noted in checking the note before signing.
== END ==
PROVIDERS: PCP Family Medicine; Referring Provider Family Medicine; Visit Provider Family Medicine
DX: R94.31 Abnormal electrocardiogram [ECG] [EKG] (principal)
CPT/HCPCS: 78452; 93017; A9500; A4216; J2785

== ENCOUNTER 2021-09-01 10:50 | Outpatient (CLI) | payer MEDICARE, BC, SELFPAY ==
[2021-09-01 10:52] LABS: Bacteria 0 SEEN /hpf (None Seen); Mucous, Urine 0 SEEN /hpf (<or=2+); Red Blood Cells-Urine 0 SEEN /hpf (0-5); Squamous Epithelial Cells - UA 0 SEEN /hpf (0-5); White Blood Cells 0 SEEN /hpf (0-5)
[2021-09-01 12:23] LABS: Absolute Lymphocyte Count 3.07 X10^3/uL (0.83-4.51); Absolute Neutrophil Count 3.6 X10^3/uL (2.0-7.7); Basophil# 0.04 X10^3/uL; Basophil% 0.5 % (0-1); Eosinophil# 0.13 X10^3/uL; Eosinophils% 1.7 % (0-5); Hematocrit 45.1 % (40-54); Hemoglobin 15.6 g/dL (13.0-16.5); Lymphocyte # 3.07 X10^3/ul (0.83-4.51); Mean Corp Hgb Conc 34.6 g/dL (32-36); Mean Corpuscular Volume 95.3 fL (80-94); Mean Platelet Vol. 9.9 fl (6.2-12.0); Monocyte# 0.66 X10^3/uL; Monocyte% 8.8 % (0-10); NRBC Flagged by Analyzer 0 % (0-5); Neutrophil # 3.55 X10^3/uL (2.7-7.7); Neutrophil % 47.5 % (47-70); Platelet Count 171 K/mm3 (150-450); RBC Distribution Width CV 13.1 % (11.6-14.6); RBC Distribution Width SD 45.4 fl (35.1-43.9); Red Blood Count 4.73 M/mm3 (4.6-6.2); White Blood Count 7.5 K/mm3 (4.4-11.0)
[2021-09-01 12:26] LABS: Color, Urine Yellow (Yellow); Glucose, Dipstick Normal (Normal); Ketone-Dipstick Negative (Negative); Leukocyte Esterase-Dipstick Negative /ul (Negative); Nitrite-Dipstick Negative (Negative); Occult Blood-Urine Negative /ul (Negative); Protein-Dipstick Negative (Negative); Specific Gravity, Urine 1.015 (1.002-1.030); Urine Bilirubin Dipstick Negative (Negative); Urine Clarity Sl. Cloudy (Clear); Urine Urobilinogen Normal (Normal)
[2021-09-01 12:38] LABS: Amorphous Sediment 2+
[2021-09-01 13:13] LABS: ALB/GLOB Ratio 1.1 RATIO (0.9-2.4); AST(SGOT) 15 U/L (15-37); Alanine Aminotransfer ALT/SGPT 23 U/L (16-61); Albumin, Serum 3.8 g/dL (3.2-5.0); Alkaline Phosphatase 146 U/L (45-117); Anion Gap 5 (5-15); BUN 13 mg/dL (7-18); BUN/Creat Ratio 15.1 RATIO (10-20); Calcium,Total 8.8 mg/dL (8.5-10.1); Chloride 105 mmol/L (98-107); Cholesterol 164 mg/dL (200); Creatinine, Serum 0.86 mg/dL (0.70-1.30); EST Glomerular Filtration Rate 94 mL/min (>60); Est Glom Filt Rate - Afr Amer 114 mL/min (>60); Globulin 3.6 g/dL (2.2-4.2); Glucose 83 mg/dL (74-106); High Density Lipoprotein 42 mg/dL; Magnesium 2.6 mg/dL (1.6-2.6); Potassium 3.8 mmol/L (3.5-5.1); Protein, Total 7.4 g/dL (6.4-8.2); Sodium Level 136 mmol/L (136-145); Thyroid Stim Hormone (TSH) 1.65 uIU/mL (0.358-3.74); Triglycerides 138 mg/dL; Very Low Density Lipoprotein 28 mg/dL (5-40)
== END 2021-09-01 23:59 | disposition short-term general hospital (02) ==
LOC: MFPLAB 10:51
PROVIDERS: PCP Family Medicine; Referring Provider Family Medicine; Visit Provider Family Medicine
DX: I10 Essential (primary) hypertension (principal); E87.6 Hypokalemia
CPT/HCPCS: 36415; 80053; 80061; 81001; 83735; 84443; 85025

== ENCOUNTER 2021-09-01 13:30 | Outpatient (RCR) | payer MEDICARE, BC, SELFPAY ==
--- NOTE | 2021-05-26 08:21 | HP.PTEVAL_ITS ---
Patient's Visit Information CHRISTIANO CRENSHAW is a 65 year old M referred to Physical Therapy by Dr. Matt Short MD with a diagnosis of Bilateral hip avascular necrosis. Date of Evaluation: 05/25/21 Physical Therapist: John Aguilar DPT - Visit Plan Frequency: 1x/Week Duration: 4 Weeks Plan: Pt to attend physical therapy for weeks leading up to surgery where he will work on strengthening of hip musculature as well as improving ROM. Consider hip PA mobs to aide in hip extension ROM. - Subjective Christiano presents to physical therapy with Left hip pain in anticipation of left NELLA on June 23. He is unable to ascend stairs reciprocally and has challenges lifting and carrying objects. He is able to perform ADL's, but notes he has an abnormal gait. Pt reports a constant ache in the posterior lateral aspect of his hip. He is unable to ambulate for long distances, but would like to return to walking 1-2 miles as a recreational activity. Pt. is retired. Pt. is hopeful to get back to all recreational walking and all household activities without hip limitations. - Pain Left Hip Pain Intensity (Out of 10): 4 Pain Intensity Range: 4, 6 - Objective SENSATION: LE WNL. STRENGTH: Left : knee :flexion 5, extension 5: WNL, hip: flexion 3- , extension 5, abd 5 , add 5 ;Right leg 5/5 throughout hip. ROM: R Knee: WNL Hip: WFL Left: knee: WNL, Hip: flexion 110, extension 5, IR 5, ER 45. NEURO: bilateral ankle and knee reflexes WNL. GAIT: L trunk lean with antalgic gait, limited L LE extension during stance phase - Balance/Special Test Scores Lower Extremity Functional Score: 33 - Goals Goal 1:: Pt will be independent with HEP for hip/core strengthening in preparation for L hip surgery Goal Time Frame: 2-4 Weeks Goal 2:: Pt will improve hip extension >10 to normalize gait. Goal Time Frame: 2-4 Weeks Goal 3:: Pt will improve LEFS to >60% disability. Goal Time Frame: 2-4 Weeks - Rehabilitation Potential Physical Therapy Diagnosis: Decreased Hip ROM, Decreased Hip strength, Abnormal gait Rehabilitation Potential: Good - Anticipated Interventions Patient/Client Instruction: Educate patient on: Condition, Plan of Care, Risk Factors, Benefits of Fitness Program For the Purpose of:: To decrease pain, To decrease swelling/inflammation, To increase ROM, To improve muscle performance and motor function, To improve ability to perform ADL's, To increase tolerance to activity/condition/position, To improve ability of physical actions for home/community/work/leisure, To improve gait and locomotor functions, To improve endurance Therapeutic Exercise to Include: Strength training, Endurance training, Balance training, Body mechanics, Passive ROM, Active ROM For the Purpose of:: To decrease pain, To decrease swelling/inflammation, To increase ROM, To improve nutrient delivery to tissue, To improve ability to perform ADL's, To increase tolerance to activity/condition/position, To improve performance and independence with ADL's, To improve ability of physical actions for home/community/work/leisure, To improve gait and locomotor functions, To improve health of tissue, To increase flexibility/ROM, To improve endurance, To improve balance, To improve health and function Manual Therapy Techniques to Include: Mobilization, Passive ROM, Soft tissue mobilization For the Purpose of:: To decrease pain, To decrease swelling/inflammation, To increase ROM, To improve nutrient delivery to tissue, To improve ability to perform ADL's, To increase flexibility/ROM Assistive Devices: Wheeled walker For the Purpose of:: To improve gait and locomotor functions, To improve self management, To improve ability to perform tasks related to life management TENS: Yes Cryotherapy (ice pack, ice massage): Yes Thermo therapy (hot pack): Yes For the Purpose of:: To decrease pain, To decrease swelling/inflammation, To increase ROM, To improve nutrient delivery to tissue, To improve muscle performance and motor function, To improve ability to perform ADL's, To improve gait and locomotor functions, To improve health of tissue, To increase flexibility/ROM Thank you for the opportunity to evaluate your patient. For Medicare and Medicare HMO plans, please review the plan of care and approve it. It will need to be FAXED BACK to us at [phone] for Medicare purposes. For Medicare only, by signing this I certify the plan of care. Please let me know if there are questions or concerns regarding this plan of care. Physician Signature: Date:__
--- NOTE | 2021-06-28 14:52 | HP.PTREVAL_ITS ---
Dr. Matt Short MD, It has been my pleasure to treat REID CRENSHAW over the last 3 visits for Bilateral hip avascular necrosis. Please see the progress note below for an update on the physical therapy plan of care! Subjective: Pt reports to physical therapy post hip surgery where he hip replacement on 06/23/21. Pt states his incision is on his left anterior hip. Pt reports he has been sleeping well, and he is taking oxycodone and aspirin for pain. Pt reports the pain has continued to get better as time continues, but it is still painful and can get to a 7/10 at its worst. Pt states he does not have any issues with curb and step to get into the house. Objective/Function: ROM: 0-60 flexion extension. STRENGTH: resisted testing - strong. PALPATION: TTP on lateral L hip , waterproof bandage on incision still will come off tuesday 07/03. NEURO: no numbness or tingling noted Plan Plan: Anterior approach precautions. Continue strengthening hip musculature and improving ROM. Balance/Gait/Functional tests - Balance/Special Test Scores Lower Extremity Functional Score: 33 TUG Test Time Seconds: 32.13 Tug Test: >30sec.=impaired mobility Goals Goal 1:: Pt will be independent with HEP. Goal Time Frame: 2-4 Weeks Goal 2:: Pt will improve hip extension >10 to normalize gait. NEW Goal : LTG: Pt ROM will improve to 130 flexion, and 10 degrees extension. Goal Time Frame: 6-8 Weeks Goal 3:: Pt will improve LEFS to < 60% disability. Goal Time Frame: 2-4 Weeks Goal 4:: STG: pt will improve TUG to < 20 sec. to indicate improved Goal Time Frame: 2-4 Weeks Goal Progress: Progressing Goal 5:: LTG: Pt. to ambulate without AD with normal gait pattern and without pain. Goal Time Frame: 4-6 Weeks Goal 6:: LTG: Pt. to negotiate 1 flight of stairs with reciprocal pattern and 1 HR without limitations. Goal Time Frame: 4-6 Weeks Goal Progress: Progressing Anticipated Interventions Patient/Client Instruction: Educate patient on: Condition, Plan of Care, Risk Factors, Benefits of Fitness Program For the Purpose of:: To decrease pain, To decrease swelling/inflammation, To increase ROM, To improve muscle performance and motor function, To improve ability to perform ADL's, To increase tolerance to activity/condition/position, To improve ability of physical actions for home/community/work/leisure, To improve gait and locomotor functions, To improve endurance Therapeutic Exercise to Include: Strength training, Endurance training, Balance training, Body mechanics, Passive ROM, Active ROM For the Purpose of:: To decrease pain, To decrease swelling/inflammation, To increase ROM, To improve nutrient delivery to tissue, To improve ability to perform ADL's, To increase tolerance to activity/condition/position, To improve performance and independence with ADL's, To improve ability of physical actions for home/community/work/leisure, To improve gait and locomotor functions, To improve health of tissue, To increase flexibility/ROM, To improve endurance, To improve balance, To improve health and function Manual Therapy Techniques to Include: Mobilization, Passive ROM, Soft tissue mobilization For the Purpose of:: To decrease pain, To decrease swelling/inflammation, To increase ROM, To improve nutrient delivery to tissue, To improve ability to perform ADL's, To increase flexibility/ROM Assistive Devices: Wheeled walker For the Purpose of:: To improve gait and locomotor functions, To improve self management, To improve ability to perform tasks related to life management TENS: Yes Cryotherapy (ice pack, ice massage): Yes Thermo therapy (hot pack): Yes For the Purpose of:: To decrease pain, To decrease swelling/inflammation, To increase ROM, To improve nutrient delivery to tissue, To improve muscle performance and motor function, To improve ability to perform ADL's, To improve gait and locomotor functions, To improve health of tissue, To increase flexibility/ROM Please do not hesitate to contact me at [phone] by phone or if you have questions or concerns regarding this new plan of care! Sincerely, DERRICK QuilesT
--- NOTE | 2021-08-07 12:23 | HP.PTREVAL_ITS ---
Dr. Matt Short MD, It has been my pleasure to treat REID CRENSHAW over the last 14 visits for L NELLA. Please see the progress note below for an update on the physical therapy plan of care! Subjective: Pt. reports no new issues. Pt. arrives without AD. Pt. reports having some pain in the AMs and with initially getting up from sitting positions. Pt. to see physician next week. He reports he has been sleeping better overall. Pt. reports being HEP compliant. Objective/Function: ROM: flexion 110deg no issues, ext 10deg, ABD 30deg, ER 45deg, IR not tested. MMT: hip: Flexion 4/5, abd 4/5, ext 4-/5; knee: ext 5/5, flexion 5-/5. GAIT: pt. ambulates well without AD. He does have decreased stance time on his RLE with decreased L step length. Slight antalgic pattern noted during R stance phase. STAIRS: 1 HR with reciprocal pattern both ascending/descending. TU.1sec no AD. Plan Plan: Pt. is overall doing well. I would like him to have a bit better gait pattern prior to DC. He is progressing well, but want to progress gait to a bit better. Pt. to follow up with physician next week. Balance/Gait/Functional tests - Balance/Special Test Scores Lower Extremity Functional Score: 53 TUG Test Time Seconds: 32.13 Tug Test: >30sec.=impaired mobility Goals Goal 1:: Pt will be independent with HEP. Goal Time Frame: 2-4 Weeks Goal Progress: Progressing Goal 2:: Pt will improve hip extension >10 to normalize gait. NEW Goal : LTG: Pt ROM will improve to 130 flexion, and 10 degrees extension. Goal Time Frame: 6-8 Weeks Goal Progress: Progressing Goal 3:: Pt will improve LEFS to < 60% disability. Goal Time Frame: 2-4 Weeks Goal Progress: Goal Met Goal 4:: STG: pt will improve TUG to < 20 sec. to indicate improved Goal Time Frame: 2-4 Weeks Goal Progress: Goal Met Goal 5:: LTG: Pt. to ambulate without AD with normal gait pattern and without pain. Goal Time Frame: 4-6 Weeks Goal Progress: Progressing Goal 6:: LTG: Pt. to negotiate 1 flight of stairs with reciprocal pattern and 1 HR without limitations. Goal Time Frame: 4-6 Weeks Goal Progress: Progressing Anticipated Interventions Patient/Client Instruction: Educate patient on: Condition, Plan of Care, Risk Factors, Benefits of Fitness Program For the Purpose of:: To decrease pain, To decrease swelling/inflammation, To increase ROM, To improve muscle performance and motor function, To improve ability to perform ADL's, To increase tolerance to activity/condition/position, To improve ability of physical actions for home/community/work/leisure, To improve gait and locomotor functions, To improve endurance Therapeutic Exercise to Include: Strength training, Endurance training, Balance training, Body mechanics, Passive ROM, Active ROM For the Purpose of:: To decrease pain, To decrease swelling/inflammation, To i ncrease ROM, To improve nutrient delivery to tissue, To improve ability to perform ADL's, To increase tolerance to activity/condition/position, To improve performance and independence with ADL's, To improve ability of physical actions for home/community/work/leisure, To improve gait and locomotor functions, To improve health of tissue, To increase flexibility/ROM, To improve endurance, To improve balance, To improve health and function Manual Therapy Techniques to Include: Mobilization, Passive ROM, Soft tissue mobilization For the Purpose of:: To decrease pain, To decrease swelling/inflammation, To increase ROM, To improve nutrient delivery to tissue, To improve ability to perform ADL's, To increase flexibility/ROM Assistive Devices: Wheeled walker For the Purpose of:: To improve gait and locomotor functions, To improve self management, To improve ability to perform tasks related to life management TENS: Yes Cryotherapy (ice pack, ice massage): Yes Thermo therapy (hot pack): Yes For the Purpose of:: To decrease pain, To decrease swelling/inflammation, To increase ROM, To improve nutrient delivery to tissue, To improve muscle performance and motor function, To improve ability to perform ADL's, To improve gait and locomotor functions, To improve health of tissue, To increase flexibility/ROM Please do not hesitate to contact me at [phone] by phone or if you have questions or concerns regarding this new plan of care! Sincerely, John Aguilar DPT
--- NOTE | 2021-08-21 16:04 | HP.PTREVAL_ITS ---
Dr. Matt Short MD, It has been my pleasure to treat REID CRENSHAW over the last 15 visits for L NELLA. Please see the progress note below for an update on the physical therapy plan of care! Subjective: Pt. reports overall doing okay. He was quarantined with COVID over the last 2 weeks between him and his . He did have to cancel his appointment with his physician, but is going to see him next week. Objective/Function: Pt. is doing well, he does having increased L lateral lean during L stance phase. Pt. reports some increase in symptoms with L hip flexion during swing phase. He does have some hip flexor muscle pain with hip flexion and with walking. His ROm is overall decent. He have talked him about manual nicole hniques to assist with decreasing symptoms. Pt. to follow up with physician on Sat. Plan Plan: Pt. to follow up with physician on Sat. He is to work on walking with proper pattern, manual to his hip flexor muscle group and hip strengthening. Balance/Gait/Functional tests - Balance/Special Test Scores Lower Extremity Functional Score: 53 TUG Test Time Seconds: 32.13 Tug Test: >30sec.=impaired mobility Goals Goal 1:: Pt will be independent with HEP. Goal Time Frame: 2-4 Weeks Goal Progress: Progressing Goal 2:: Pt will improve hip extension >10 to normalize gait. NEW Goal : LTG: Pt ROM will improve to 130 flexion, and 10 degrees extension. Goal Time Frame: 6-8 Weeks Goal Progress: Progressing Goal 3:: Pt will improve LEFS to < 60% disability. Goal Time Frame: 2-4 Weeks Goal Progress: Goal Met Goal 4:: STG: pt will improve TUG to < 20 sec. to indicate improved Goal Time Frame: 2-4 Weeks Goal Progress: Goal Met Goal 5:: LTG: Pt. to ambulate without AD with normal gait pattern and without pain. Goal Time Frame: 4-6 Weeks Goal Progress: Progressing Goal 6:: LTG: Pt. to negotiate 1 flight of stairs with reciprocal pattern and 1 HR without limitations. Goal Time Frame: 4-6 Weeks Goal Progress: Progressing Anticipated Interventions Patient/Client Instruction: Educate patient on: Condition, Plan of Care, Risk Factors, Benefits of Fitness Program For the Purpose of:: To decrease pain, To decrease swelling/inflammation, To increase ROM, To improve muscle performance and motor function, To improve a bility to perform ADL's, To increase tolerance to activity/condition/position, To improve ability of physical actions for home/community/work/leisure, To improve gait and locomotor functions, To improve endurance Therapeutic Exercise to Include: Strength training, Endurance training, Balance training, Body mechanics, Passive ROM, Active ROM For the Purpose of:: To decrease pain, To decrease swelling/inflammation, To increase ROM, To improve nutrient delivery to tissue, To improve ability to perform ADL's, To increase tolerance to activity/condition/position, To improve performance and independence with ADL's, To improve ability of physical actions for home/community/work/leisure, To improve gait and locomotor functions, To improve health of tissue, To increase flexibility/ROM, To improve endurance, To improve balance, To improve health and function Manual Therapy Techniques to Include: Mobilization, Passive ROM, Soft tissue mobilization For the Purpose of:: To decrease pain, To decrease swelling/inflammation, To increase ROM, To improve nutrient delivery to tissue, To improve ability to perform ADL's, To increase flexibility/ROM Assistive Devices: Wheeled walker For the Purpose of:: To improve gait and locomotor functions, To improve self management, To improve ability to perform tasks related to life management TENS: Yes Cryotherapy (ice pack, ice massage): Yes Thermo therapy (hot pack): Yes For the Purpose of:: To decrease pain, To decrease swelling/inflammation, To increase ROM, To improve nutrient delivery to tissue, To improve muscle performance and motor function, To improve ability to perform ADL's, To improve gait and locomotor functions, To improve health of tissue, To increase flexibility/ROM Please do not hesitate to contact me at [phone] by phone or if you have questions or concerns regarding this new plan of care! Sincerely, John Aguilar DPT
== END 2021-09-01 19:00 | disposition home or self-care (01) ==
LOC: PT 13:30
PROVIDERS: PCP Family Medicine; Referring Provider Orthopaedic Surgery; Visit Provider Orthopaedic Surgery
DX: M87.052 Idiopathic aseptic necrosis of left femur (principal)
CPT/HCPCS: 97110; 97161; 97164

== ENCOUNTER → 2022-09-12 | Outpatient (CLI) | payer MEDICARE, OTHER, SELFPAY ==
--- NOTE | 2022-09-12 13:00 | CT_ITS ---
STUDY: LOW DOSE CT LUNG CANCER SCREENING REASON FOR EXAM: Male, 67 years old. SMOKER. Patient smoked 3 packs per day for 25 years. RADIATION DOSAGE (If Supplied By Facility): CTDIvol = ( 3.02 ) mGy, DLP = ( 313.18 ) mGycm TECHNIQUE: No contrast was administered. Low dose technique was utilized (average mAS-38 and kVp 120). 1.25 mm axial source images with a slice interval of 1.25-mm were reconstructed in lung windows. 2.5 mm axial source images with a slice interval of 2.5-mm were reconstructed in lung windows. 5.0 mm axial source images with a slice interval of 5.0-mm were reconstructed in soft tissue windows. COMPARISON: Comparison is made with prior study dated 03/09/2021. NODULES: No suspicious nodules are seen. Emphysema: Hyperinflation. Mild degree of emphysematous changes. Endobronchial lesion: None Aorta: Atherosclerotic plaque formation of the aortic arch. CORONARY ARTERIES: Coronary artery calcification is seen. Heart: Unremarkable Pulmonary artery: Unremarkable Mediastinal nodes: Small mediastinal lymph nodes. Other chest and abdominal findings: CT/Low Dose CT Lung Screening IMPRESSION: Lung-RADS category 2 - Continue annual screening with LDCT in 12 months. IMPORTANT NOTES FOR USE: ACR Lung-RADS Version 1.1 Assessment Categories Release Date: 2018 Category: Coded 0-4 bases on nodule(s) with highest degree of suspicion. Negative screen is defined as categories 1 and 2; a positive screen is defined as categories 3 and 4. Category 3 and 4A nodules that are unchanged on interval CT should be coded as category 2, and individuals returned to screening in 12 months. Category 4X: Category 3 or 4 nodules with additional imaging findings that increase the suspicion of lung cancer, such as spiculation, GGN that doubles in size in 1 year, enlarged lymph notes, etc. Category Modifiers: S (significant finding unrelated to lung cancer) Electronically Signed: Michele Kenney MD at 14:58 EST ,
[2022-09-12 13:22] VITALS: BP 159/78; PULSE 68; RESP 16; TEMP 37.1; O2SAT 99; BMI 29.4
--- NOTE | 2022-09-12 16:56 | CA.SCORE ---
Calcium Scoring Date of Study:: 09/12/22 Indications Indications: High risk factors Coronary Calcium Scoring: High-resolution Computed Tomographic imaging of the chest was performed on [09/12/2022], with particular attention paid to the coronary arteries. Images from the examination were analyzed for the presence and extent of coronary artery calcification , using coronary calcium quantification software. The patient tolerated the procedure well and there were no complications. The results of the coronary calcification analysis are provided below. Findings Coronary Artery Left Main (LM): 0 Left Anterior Descending (LAD): 8 Left Circumflex (LCX): 152 Right Coronary Artery (RCA): 47 Total Agatston Score: 207 Percentile Rankin% to 75th percentile Calcium Scoring Interpretation: Different methods to categorize the overall amount of coronary plaque. Overall amount CAC SIS Visual of coronary plaque P1 Mild -100 <2 1-2 vessels with mild amount of plaque P2 Moderate 101-300 3-4 1-2 vessels with moderate amount, 3 vessels with mild amount of plaque P3 Severe 301-999 5-7 3 vessels with moderate amount, 1 vessel with severe amount of plaque P4 Extensive >1000 >8 2-3 vessels with severe amount of plaque Calcium Score: Moderate: 1-2 vessels w/moderate amt, 3 vessels w/mild amt of plaque Conclusion: Moderate nonobstructive plaque noted
== END | disposition home or self-care (01) ==
PROVIDERS: PCP Family Medicine; Referring Provider Internal Medicine; Visit Provider Internal Medicine
DX: E78.5 Hyperlipidemia, unspecified (principal); I25.10 Atherosclerotic heart disease of native coronary artery without angina pectoris; Z87.891 Personal history of nicotine dependence
CPT/HCPCS: 71271; 75571

== ENCOUNTER 2022-11-28 13:00 | Outpatient (RCR) | payer MEDICARE, OTHER, SELFPAY ==
--- NOTE | 2022-10-01 15:52 | HP.PTEVAL_ITS ---
Patient's Visit Information REID CRENSHAW is a 67 year old M referred to Physical Therapy by Dr. Matt Short MD with a diagnosis of Anterior Approach THR 09/25/22. Date of Evaluation: 10/01/22 Physical Therapist: Suzy Pinon DPT - Visit Plan Frequency: 1x/Week Duration: 4 Weeks Plan: 09/21/22 Right THR. HEP Given IE: HR/TR, weight shift, quad set, A SLR - Subjective Right THR 09/21/[address] Short- he stayed overnight. Single story home with a single step to enter- no issues getting in/out- lives with his who can help as needed. Prior to surgery he was fully I with all ADL's. Pain is located in the top of the thigh- he reports that he swells up to the foot. Worst: 5-6/10 Agg: walking Eases: medication- but he is weaning down to only taking 3 a day. He takes one before he goes to bed. Describes the pain as dull and achy. Will get a sharp pain at the incision if he moves funny. No N/T in the toes. Best: 0/10. Sleep: recliner- but plans to move to the bed tonight. He used a cane prior to surgery-prob about 3-4 weeks. Does not work. They like to drive around, walk, go out to eat. Had his Left Hip in 2020. Precautions: take a step backwards, twist foot, turn on it. PMHx: HTN Meds: losartin, cholesterol med - Objective Posture: FH, RS- can correct with verbal cues but does not maintain. Gait: antalgic- decreased stance on the right LE with foot flat contact and FWW. SLS: weight shifting- increased discomfort. HR/TR: able with UE A. Incision: pt report no drainage- bandage is covering (educated on s/s of infection and to call MD if concerns). Palpation: tender along incision and anterior thigh. ROM: WFL in all planes with discomfort with 90 degrees of hip flexion (did not push past discomfort). Strength: Core: fair, Hip: SLR: unable without max A, Extn: 18.0 lbs, Abd/Add: 4/5, Knee: 4+/5, Ankle: 5/5. Flex: HS: moderate Gastroc: moderate - Balance/Special Test Scores TUG Test Time Seconds: 30.0 WOMAC Total Score: 35 WOMAC Percentatge: 63.5500 - Goals Goal 1:: Patient will be I with HEP and progression Goal Time Frame: 4-6 Weeks Goal 2:: Patient will ambulate >300 feet with a normalized gait pattern with no AD Goal Time Frame: 4-6 Weeks Goal 3:: Patient will asc/desc 8 stairs recip with 1 HR Goal Time Frame: 4-6 Weeks Goal 4:: Patient will perform TUG in under 10 sec with LRD Goal Time Frame: 4-6 Weeks Goal 5:: Patient will report 80% improvement Goal Time Frame: 4-6 Weeks - Rehabilitation Potential Physical Therapy Diagnosis: Patient presents s/p Right THR- he has decreased LE and core strength/stabilization, flex and muscular endurance leading to abnormal gait and increased pain with ADL's. Rehabilitation Potential: Good - Anticipated Interventions Patient/Client Instruction: Educate patient on: Benefits of Fitness Program Therapeutic Exercise to Include: Strength training, Endurance training, Balance training, Coordination, Agility training, Body mechanics, Postural training, Flexibilty training, Gait and locomotor training, Neuromotor development, Dynamic Lumbar Stabilization, Scapular Strength/Stabilization TENS: Yes Cryotherapy (ice pack, ice massage): Yes Thermo therapy (hot pack): Yes Ultrasound (thermal/non thermal): No Thank you for the opportunity to evaluate your patient. For Medicare and Medicare HMO plans, please review the plan of care and approve it. It will need to be FAXED BACK to us at [phone] for Medicare purposes. For Medicare only, by signing this I certify the plan of care. Please let me know if there are questions or concerns regarding this plan of care. Physician Mariola schumacher: Date:
--- NOTE | 2022-10-31 14:46 | HP.PTREVAL ---
Dr. Matt Short MD, It has been my pleasure to treat REID CRENSHAW over the last 10 visits for Anterior Approach THR 09/25/22 Right. Please see the progress note below for an update on the physical therapy plan of care! Subjective: Patient reports that its getting better each week. He saw the surgeon last Saturday- who is happy with progress. He feels the hardest part is raising his foot up and driving- but that's getting better- he is now able to do a straight leg raise. He feels that the last 20% is being able to things without thought. Objective/Function: Posture: FH, RS- can correct with verbal cues but does not maintain. Gait: slightly antalgic- decreased stance on the right LE with foot flat contact and straight cane. SLS: 2-3 seconds does not trust the right LE (encouraged to incorporate into his ADL's.). HR/TR: able with UE A. ROM: WFL in all planes Strength: Core: fair, Hip: Flexion: 19, Extn: 44 lbs, Abd/Add: 4+/5, Knee: 4+/5, Ankle: 5/5. Flex: HS: moderate Gastroc: moderate Plan Plan: 10/31/22: Continue 2x a week for 4 weeks. 09/21/22 Right THR. HEP Given IE: HR/TR, weight shift, quad set, A SLR Balance/Gait/Functional tests - Balance/Special Test Scores TUG Test Time Seconds: 9.82 Tug Test: <10 sec.=free mobile WOMAC Total Score: 38 WOMAC Percentage: 60.4200 Goals Goal 1:: Patient will be I with HEP and progression Goal Time Frame: 4-6 Weeks Goal Progress: Progressing Goal 2:: Patient will ambulate >300 feet with a normalized gait pattern with no AD Goal Time Frame: 4-6 Weeks Goal Progress: Progressing Goal 3:: Patient will asc/desc 8 stairs recip with 1 HR Goal Time Frame: 4-6 Weeks Goal Progress: Progressing Goal 4:: Patient will perform TUG in under 10 sec with LRD Goal Time Frame: 4-6 Weeks Goal Progress: Progressing Goal 5:: Patient will report 80% improvement Goal Time Frame: 4-6 Weeks Goal Progress: Progressing Anticipated Interventions Patient/Client Instruction: Educate patient on: Benefits of Fitness Program Therapeutic Exercise to Include: Strength training, Endurance training, Balance training, Coordination, Agility training, Body mechanics, Postural training, Flexibilty training, Gait and locomotor training, Neuromotor development, Dynamic Lumbar Stabilization, Scapular Strength/Stabilization TENS: Yes Cryotherapy (ice pack, ice massage): Yes Thermo therapy (hot pack): Yes Ultrasound (thermal/non thermal): No Please do not hesitate to contact me at [phone] by phone or if you have questions or concerns regarding this new plan of care! Sincerely, DERRICK MorenoT
--- NOTE | 2022-11-28 13:48 | HP.PTREVAL ---
Dr. Matt Short MD, It has been my pleasure to treat REID CRENSHAW over the last 18 visits for Anterior Approach THR 09/25/22 Right. Please see the progress note below for an update on the physical therapy plan of care! Subjective: Patient is coming off a 30 min session with [employer]- she reports that she added stick roll out today due to some stiffness/soreness. Patient reports that some days are better than others. When he does something stupid like work outside it sets him back. Fully I with all ADL's- he is able to mow on the sitting mower which vibrates it up and he plans to use a pillow and weed wacked a big long fence line and got under a sink to fix a faucet and that made him sore. Worst in the last couple of days 10/12- he does have pain free moments when he is sitting. Most of his pain is when he is first getting up. He is walking without a cane but does sometimes take it with him. He feels that he would like to do some home exercises for a few weeks. Objective/Function: (THR Right 09/21/22). Posture: FH, RS- can correct with verbal cues but does not maintain. Gait: slightly antalgic- decreased stance on the right LE with foot flat contact- when given verbal cues his gait pattern is much smoother- but reverts back to smaller stride without cues. SLS: 5-8 seconds does not trust the right LE (encouraged to incorporate into his ADL's.). HR/TR: able with UE A. ROM: WFL in all planes. Strength: Core: fair, Hip: Flexion: 25 , Extn: 50 lbs, Abd/Add: 4+/5, Knee: 4+/5, Ankle: 5/5. Flex: HS: moderate Gastroc: moderate. Stairs: asc.desc 8 recip with 1 HR- does have decreased control with descent and uses a jump through pattern for asc Plan Plan: 11/28/22: Hold 4 weeks- PT encouraged compliance with HEP and PT- pt wants to see surgeon and do HEP at home gym- will follow up as needed- if we don't hear from him in 4 weeks d.c- if he does decide PT is 2x a week for 6 weeks. 11/07/22: lateral steps at counter top. 10/31/22: Continue 2x a week for 4 weeks. 09/21/22 Right THR. HEP Given IE: HR/TR, weight shift, quad set, A SLR Balance/Gait/Functional tests - Balance/Special Test Scores TUG Test Time Seconds: 9.82 Tug Test: <10 sec.=free mobile WOMAC Total Score: 28 WOMAC Percentage: 70.8400 Goals Goal 1:: Patient will be I with HEP and progression Goal Time Frame: 4-6 Weeks Goal Progress: Progressing Goal 2:: Patient will ambulate >300 feet with a normalized gait pattern with no AD Goal Time Frame: 4-6 Weeks Goal Progress: Progressing Goal 3:: Patient will asc/desc 8 stairs recip with 1 HR Goal Time Frame: 4-6 Weeks Goal Progress: Progressing Goal 4:: Patient will perform TUG in under 10 sec with LRD Goal Time Frame: 4-6 Weeks Goal Progress: Progressing Goal 5:: Patient will report 80% improvement Goal Time Frame: 4-6 Weeks Goal Progress: Progressing Anticipated Interventions Patient/Client Instruction: Educate patient on: Benefits of Fitness Program Therapeutic Exercise to Include: Strength training, Endurance training, Balance training, Coordination, Agility training, Body mechanics, Postural training, Flexibilty training, Gait and locomotor training, Neuromotor development, Dynamic Lumbar Stabilization, Scapular Strength/Stabilization TENS: Yes Cryotherapy (ice pack, ice massage): Yes Thermo therapy (hot pack): Yes Ultrasound (thermal/non thermal): No Please do not hesitate to contact me at [phone] by phone or if you have questions or concerns regarding this new plan of care! Sincerely, Suzy Pinon DPT
--- NOTE | 2023-02-18 12:26 | HP.PTDCSUM ---
Discharge Summary D/C summary: It has been my pleasure to treat REID CRENSHAW referred by Dr. Matt Short MD, with the diagnosis of Anterior Approach THR 09/25/22 Right for a total of 18 visit(s). Discharge Date: Please see the following information for a summary of their discharge status. 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 Patient reports that some days are better than others. When he does something stupid like work outside it sets him back. Fully I with all ADL's- he is able to mow on the sitting mower which vibrates it up and he plans to use a pillow and weed wacked a big long fence line and got under a sink to fix a faucet and that made him sore. Worst in the last couple of days 10/12- he does have pain free moments when he is sitting. Most of his pain is when he is first getting up. He is walking without a cane but does sometimes take it with him. He feels that he would like to do some home exercises for a few weeks. Pain Right Hip: Pain Intensity (Out of 10): 0 Overall Improvement % Improvement: 90 Objective Objective/Function: (THR Right 09/21/22) Posture: FH, RS- can correct with verbal cues but does not maintain. Gait: slightly antalgic- decreased stance on the right LE with foot flat contact- when given verbal cues his gait pattern is much smoother- but reverts back to smaller stride without cues SLS: 5-8 seconds does not trust the right LE (encouraged to incorporate into his ADL's.). HR/TR: able with UE A. ROM: WFL in all planes Strength: Core: fair, Hip: Flexion: 25 , Extn: 50 lbs, Abd/Add: 4+/5, Knee: 4+/5, Ankle: 5/5. Flex: HS: moderate Gastroc: moderate Stairs: asc.desc 8 recip with 1 HR- does have decreased control with descent and uses a jump through pattern for asc Goals Goal 1:: Patient will be I with HEP and progression Goal Progress: Progressing Goal 2:: Patient will ambulate >300 feet with a normalized gait pattern with no AD Goal Progress: Progressing Goal 3:: Patient will asc/desc 8 stairs recip with 1 HR Goal Progress: Progressing Goal 4:: Patient will perform TUG in under 10 sec with LRD Goal Progress: Progressing Goal 5:: Patient will report 80% improvement Goal Progress: Progressing Plan Plan: 11/28/22: Hold 4 weeks- PT encouraged compliance with HEP and PT- pt wants to see surgeon and do HEP at home gym- will follow up as needed- if we don't hear from him in 4 weeks d.c- if he does decide PT is 2x a week for 6 weeks 11/07/22: lateral steps at counter top 10/31/22: Continue 2x a week for 4 weeks 09/21/22 Right THR HEP Given IE: HR/TR, weight shift, quad set, A SLR D/C Information d/c sentence: If there are questions or concerns regarding this patient's physical therapy, please feel free to call me at [phone]. Thank you for the referral of this patient. Sincerely, Suzy Pinon, DPT Balance/Gait/Functional tests Balance/Special Test Scores TUG Test Time Seconds: 9.82 Tug Test: <10 sec.=free mobile WOMAC Total Score: 28 WOMAC Percentage: 70.8400
== END 2022-11-28 19:00 | disposition home or self-care (01) ==
LOC: PT 13:00
PROVIDERS: PCP Family Medicine; Referring Provider Orthopaedic Surgery; Visit Provider Orthopaedic Surgery
DX: Z47.1 Aftercare following joint replacement surgery (principal)
CPT/HCPCS: 97110; 97162; 97164

== ENCOUNTER → 2024-02-19 | Outpatient (CLI) | payer MEDICARE, OTHER, SELFPAY ==
--- NOTE | 2024-02-19 13:45 | CT_ITS ---
STUDY: LOW DOSE CT LUNG CANCER SCREENING REASON FOR EXAM: Male, 68 years old. Tobacco dependence in remission RADIATION DOSAGE (If Supplied By Facility): CTDIvol = ( 3.02 ) mGy, DLP = ( 117.39 ) mGycm TECHNIQUE: No contrast was administered. Low dose technique was utilized (average mAS-38 and kVp 120). 1.25 mm axial source images with a slice interval of 1.25-mm were reconstructed in lung windows. 2.5 mm axial source images with a slice interval of 2.5-mm were reconstructed in lung windows. 5.0 mm axial source images with a slice interval of 5.0-mm were reconstructed in soft tissue windows. COMPARISON: 09/12/2022 Emphysema: Mild emphysema. No noncalcified nodule or mass. Endobronchial lesion: None Aorta: Some calcified plaque in the aortic arch but no aortic aneurysm. CORONARY ARTERIES: Coronary artery calcification is seen. Heart: No cardiomegaly. Pulmonary artery: Normal Mediastinal nodes: Normal Other chest and abdominal findings: None CT/Low Dose CT Lung Screening IMPRESSION: Lung-RADS category 1 - Continue annual screening with LDCT in 12 months. IMPORTANT NOTES FOR USE: ACR Lung-RADS Version 1.1 Assessment Categories Release Date: 2018 Category: Coded 0-4 bases on nodule(s) with highest degree of suspicion. Negative screen is defined as categories 1 and 2; a positive screen is defined as categories 3 and 4. Category 3 and 4A nodules that are unchanged on interval CT should be coded as category 2, and individuals returned to screening in 12 months. Category 4X: Category 3 or 4 nodules with additional imaging findings that increase the suspicion of lung cancer, such as spiculation, GGN that doubles in size in 1 year, enlarged lymph notes, etc. Category Modifiers: S (significant finding unrelated to lung cancer) Electronically Signed: Matt Valerio MD at 15:58 EDT ,
== END | disposition home or self-care (01) ==
LOC: CT 13:44
PROVIDERS: PCP Internal Medicine; Referring Provider Internal Medicine; Visit Provider Internal Medicine
DX: F17.210 Nicotine dependence, cigarettes, uncomplicated (principal)
CPT/HCPCS: 71271

== ENCOUNTER → 2024-02-20 | Outpatient (CLI) | payer MEDICARE, OTHER, SELFPAY ==
--- NOTE | 2024-02-20 07:22 | US_ITS ---
STUDY: ABDOMINAL ULTRASOUND - RIGHT UPPER QUADRANT; ELASTOGRAPHY REASON FOR VISIT: Male, 68 years old. Thrombocytopenia TECHNIQUE: Ultrasound evaluation of the right upper quadrant was performed with real-time and static owens-scale imaging. Point quantification shear wave elastography was performed ([employer]). TECHNICAL QUALITY: Limited. Examination limited by bowel gas. COMPARISON: None. FINDINGS: Liver: The liver measures 15.4 cm. There is increased echogenicity consistent with fatty infiltration. The bile ducts are within normal limits. There is hepatic color flow. The direction of portal flow is hepatopetal. There is no demonstrated mass lesion. Median liver stiffness measured 9.3 kPa. Gallbladder: Normal distended gallbladder. The gallbladder wall measures 1.9 mm. There is a negative sonographic Jain''s sign. There is no pericholecystic fluid. There are no gallstones. Common Bile Duct (C.B.D.): The common bile duct measures 1.9 mm. Pancreas: The pancreas is obscured due to overlying bowel gas. Right Kidney: Normal size of the right kidney. The right kidney measures 11 cm x 5.6 cm x 4.8 cm. Normal renal cortex. The right cortex measures 1.1 cm. There is no demonstrated renal mass or cyst. There is no right hydronephrosis. US/ABD Limited w/ Elastography IMPRESSION: 1. Liver stiffness measures 9.3 kPa compatible with F2-F3 (Mild to moderate liver fibrosis) Metavir score. Electronically Signed: Michele Kenney MD at 14:50 EDT ,
== END | disposition home or self-care (01) ==
LOC: US 07:21
PROVIDERS: PCP Internal Medicine; Referring Provider Internal Medicine; Visit Provider Internal Medicine
DX: D69.6 Thrombocytopenia, unspecified (principal); R74.8 Abnormal levels of other serum enzymes; Z78.9 Other specified health status
CPT/HCPCS: 76705; 76981

== ENCOUNTER → 2024-11-18 | Outpatient (CLI) | payer MEDICARE, OTHER, SELFPAY ==
--- NOTE | 2024-11-18 13:37 | NEURO ---
NCS and/or EMG Patient Report Ordering Doctor: Simi Madden DATE OF SERVICE: 11/18/24 Christiano presents for electrodiagnostic testing of the right upper limb. He reports numbness and tingling in the right forearm. He denies neck pain. Electrodiagnostic findings: Right median motor nerve demonstrates normal distal latency, amplitude and conduction velocity. Normal ulnar motor response, including conduction across the elbow. Normal median sensory response. Normal right ulnar radial sensory responses. Normal median and ulnar F?wave. Needle EMG test was performed the right upper limb. All muscles tested showed no evidence of denervation with normal motor unit action potentials. Electrodiagnostic impression: This is a normal electrodiagnostic study of the right upper limb. There is no electrodiagnostic evidence for peripheral neuropathy, including carpal tunnel or cubital tunnel syndrome. There is no electrodiagnostic evidence for cervical radiculopathy. Multi Select Codes Neurology Neurology Interp Codes: 30998-07 Musc test done w/n test comp (interp) and 82070-60 Nrv cndj test 7-8 studies (interp)
== END | disposition home or self-care (01) ==
LOC: PSN 08:26
PROVIDERS: PCP Internal Medicine; Referring Provider Internal Medicine; Visit Provider Internal Medicine
DX: R20.2 Paresthesia of skin (principal); M79.601 Pain in right arm
CPT/HCPCS: 95886; 95910

== ENCOUNTER 2024-12-24 01:47 | Emergency (ER) | payer MEDICARE, OTHER, SELFPAY ==
[2024-12-24 01:48] VITALS: BP 171/93; PULSE 88; RESP 16; TEMP 36.7; O2SAT 98
[2024-12-24 01:54] VITALS: O2SAT 98
--- NOTE | 2024-12-24 02:50 | EX.ED.DYSGE1 ---
HPI History of Present Illness Chief Complaint: Cough Informant: patient Onset/Context/Timing Onset: Today Context: Sudden Onset Timing: Continuous Quality: Sharp Location: Left lateral ribs Worsened by: Coughing, deep breathing Relieved by: Nothing Narrative Narrative: Patient presents with left rib and chest pain that began today. Patient states it began suddenly. Patient states he felt a pop while he was coughing today. Patient states the pain is sharp. Patient states it is localized to the left side of his chest. Patient states his pain is worse with deep breathing and with coughing. Patient states nothing seems to help with the pain. Patient denies any fevers or chills. Patient states he has had a cough for the past few days. Patient denies any sputum production. [facility] Medical History (Updated 12/24/24 @ 03:[address] Alvaro Hairston DO) COPD, moderate Hypertension Osteoarthritis Home Medications ?Medication ?Instructions ?Recorded ?Last Taken ?Type amlodipine 5 mg tablet 5 mg PO DAILY 09/12/22 Unknown History budesonide-formoterol HFA 160 1 inh inhalation BID 09/12/22 Unknown History mcg-4.5 mcg/actuation aerosol inhaler (Symbicort) losartan 50 mg tablet 50 mg PO DAILY 09/12/22 Unknown History rosuvastatin 5 mg tablet 5 mg PO DAILY 09/12/22 Unknown History vit C 250 mg-vit E 90 mg-zinc 40 1 tab PO DAILY PRN NOT PRN 09/12/22 Unknown History mg-copper 1 [id number] capsule (PreserVision AREDS-2) hydrocodone-acetaminophen 5-325mg 1 tab PO Q6H PRN PRN Pain 3 days 12/24/24 Unknown Rx 5mg-325mg #10 TABLETS Allergy/AdvReac Type Severity Reaction Status Date / Time No Known Allergies Allergy Verified 09/11/22 13:30 Surgical History (Updated 12/24/24 @ 02:[address] Alvaro Hairston DO) History of hip replacement, total Social History (Updated 09/12/22 @ 13:16 by Gaby Mayers) Smoking Status: Former smoker alcohol intake: current details: 5 BEERS/DAY ROS ROS ED Constitutional Constitutional ED: Denies chills or fever(s) Eyes Eyes: Denies blurry vision or change in vision ENT ENT ED: Denies rhinorrhea or sore throat Cardiovascular Cardiovascular: Reports chest pain; Denies palpitations Respiratory/Chest Respiratory/Chest: Reports cough and dyspnea Gastrointestinal Gastrointestinal: Denies nausea or vomiting Genitourinary Genitourinary ED: Denies dysuria or hematuria Musculoskeletal Musculoskeletal: Denies back pain or neck pain Integumentary Denies abscess or rash Neurologic Neurologic: Denies headache(s) or weakness Allergic/Immunologic Allergic/Immunologic ED: Denies mouth swelling or urticaria EXAM Physical Exam Const Vital Signs: 12/24/24 01:48 12/24/24 01:54 Temperature 98.1 F Temperature Source Oral Pulse Rate 88 Respiratory Rate 16 Respiratory Effort Normal Respiratory Depth Normal Respiratory Pattern Normal Blood Pressure 171/93 H Blood Pressure Mean 119 Pulse Ox 98 Oxygen Delivery Method Room Air Room Air Positive well nourished and well developed General Appearance ED: well developed and NAD HEENT Reports moist mucous membranes Neck supple and no JVD Chest Wall Chest Narrative: There is tenderness to palpation of the left lateral chest wall. There is no edema or ecchymosis. There is no subcutaneous emphysema palpated. Resp normal respiratory effort and clear to auscultation bilaterally Cardio regular rate and regular rhythm GI non-tender and non-distended Palpation: soft Neuro oriented x3, CN's II-XII intact bilaterally and no sensory deficits noted Sensorium / Orientation: alert Motor Exam: strength 5/5 throughout Psych mental status grossly normal MDM MDM MDM Narrative Medical decision making narrative: Differential diagnosis includes rib fracture, pneumothorax, intercostal strain, cardiac dysrhythmia, cardiac ischemia, and contusion. X-rays of the left ribs will be obtained to assess for rib fracture and pneumothorax. EKG will be obtained to assess for cardiac dysrhythmia and cardiac ischemia. Radiography Diagnostic Testing: Clinical Impression(s) from Imaging Studies Ribs w/Chest X-Ray 12/24/24 03:09 IMPRESSION: No evidence of acute process as above. Reading Location: [facility] X-rays of the left ribs were obtained. There are 5 views. On my independent interpretation, there is no acute fracture. There is no pneumothorax. There is no acute cardiopulmonary process. Radiologist also interpreted the x-rays and agrees. EKG Initial EKG: Attestation: I personally reviewed and interpreted this EKG as follows: Interpretation: Sinus Rhythm (70) and No Acute Injury Pattern Comments: EKG was obtained. On my independent interpretation, it showed a normal sinus rhythm with a rate of 70. UT interval, QRS interval, and QTc intervals were all normal. [place] was normal. There are no acute ST or T wave changes. Prior EKG tracings: not available for review Prior: No Prior Treatment and Re-Evaluation :: Patient was given a dose of [place] here. Patient was advised of his findings. Patient was advised that this is most likely intercostal strain or chest wall strain. Patient was given a prescription for a short course of [place]. Patient was instructed to use ice to the area. Patient was instructed to follow-up with his primary care physician in 5 to 7 days. Patient understood and was agreeable with the plan. All questions were answered. Discharge Plan Triage Chief Complaint: Cough ED Provider: Alvaro Hairston Dx/Rx/DC Orders Clinical Impression: Chest wall muscle strain, Cough Instructions: ED Chest Wall Strain Prescriptions: New hydrocodone-acetaminophen 5-325 mg tablet 1 tab PO Q6H PRN PRN (Reason: Pain) 3 Days Qty: 10 0RF No Action losartan 50 mg Tablet 50 mg PO DAILY amlodipine 5 mg Tablet 5 mg PO DAILY budesonide-formoterol [Symbicort] 160-4.5 mcg/actuation Hfa Aerosol Inhaler 1 inh INHALATION BID PreserVision AREDS-2 250-90-40-1 mg Capsule 1 tab PO DAILY MDD 1 TAB PRN (Reason: NOT PRN) rosuvastatin 5 mg Tablet 5 mg PO DAILY Primary Care Provider: Simi Madden Referrals: Siim Madden MD [Primary Care Provider] - 3-5 Days Print Language: Tanzanian Disposition Disposition: Home, Self Care
--- NOTE | 2024-12-24 02:55 | EKG12_ITS ---
Test Reason : COUGH Blood Pressure : */* mmHG Vent. Rate : 70 BPM Atrial Rate : 70 BPM P-R Int : 156 ms QRS Dur : 80 ms QT Int : 412 ms P-R-T Axes : -10 -3 22 degrees QTcB Int : 444 ms Normal sinus rhythm Inferior infarct , age undetermined Abnormal ECG Confirmed by TAYLOR MENDIOLA, NAFISA ([id number]), market editor NASIR HINOJOSA ([id number]) on 12/29/2024 6:47:52 AM Referred By: Confirmed By: NAFISA VAZQUEZ MD
[2024-12-24] MEDS: HYDROcodone Bitartrate/Apap 5/325 Tablet PO (02:58)
--- NOTE | 2024-12-24 03:09 | RAD_ITS ---
PROCEDURE: RIBS UNI MIN 3V W/PA CHEST 12/24/2024 REASON FOR EXAM: PAIN TECHNIQUE: PA chest and four views of the left ribs, 5 total images COMPARISON: None available FINDINGS: The lungs appear clear. No pneumothorax or pleural effusion identified. The cardiac and mediastinal contours appear within limits. Atherosclerotic change at the aortic arch noted. The ribs appear within limits. No fracture identified. RAD/Ribs Uni Min 3V w/PA Chest IMPRESSION: No evidence of acute process as above. Reading Location: [id number]
[2024-12-24 03:50] VITALS: BP 123/79; PULSE 73; RESP 14; TEMP 36.8; O2SAT 99
== END 2024-12-24 03:50 | disposition home or self-care (01) ==
PROVIDERS: Emergency Provider Emergency Medicine; PCP Internal Medicine; Visit Provider Emergency Medicine
DX: S29.011A Strain of muscle and tendon of front wall of thorax, initial encounter (principal); J44.9 Chronic obstructive pulmonary disease, unspecified; I10 Essential (primary) hypertension; Z79.899 Other long term (current) drug therapy; X58.XXXA Exposure to other specified factors, initial encounter; Z87.891 Personal history of nicotine dependence
CPT/HCPCS: 71101; 93005; 99282

== ENCOUNTER → 2025-03-05 | Outpatient (CLI) | payer MEDICARE, OTHER, SELFPAY ==
--- NOTE | 2025-03-05 09:43 | US_ITS ---
PROCEDURE: ABD LIMITED W/ ELASTOGRAPHY REASON FOR EXAM: ULTRASOUND, ABDOMEN, LIMITED Alcoholic fibrosis. COMPARISON: None. TECHNIQUE: Right upper quadrant abdominal ultrasound. Whitney ElastQ Imaging shear wave elastography for non-invasive assessment of liver tissue stiffness. Whitney EPIQ Elite. FINDINGS: LIVER: Size: Unremarkable Length: 15.8 cm Echotexture: Normal Contour: Nodular Lesions: None identified Elastography: EQI Med: 7.4 kPa EQI Med Mich: 1.6 m/s IQR/Med: 22.5 %* GALLBLADDER: Normal COMMON BILE DUCT: Normal measuring 3.1 mm . PANCREAS: Normal Visualized portions of the right kidney are unremarkable. No right upper quadrant ascites. US/ABD Limited w/ Elastography IMPRESSION: [id number] hepatic fibrosis. Diffuse fatty infiltration of the liver. Reference Values: SRU <1.37 m/s (5.7kPa): No to mild fibrosis 1.37 m/s - 2.2 m/s: Moderate to severe fibrosis >2.2 m/s (15kPa): Significant fibrosis / cirrhosis METAVIR Score F2 or higher: 1.34 m/s (5.7kPa) F3 or higher: 1.55 m/s (7.3kPa) F4: 1.80 m/s (10kPa) * If the IQR/Med is >30%, the variance in the measurements is a large and the a ccuracy of the measurement may be in question. Reading Location: [id number]
--- OUTSIDE RECORDS SUMMARY | 2025-03-05 12:09 | XMS RPT_ITS | CCD ---
Author Organization [facility] Care Team Providers Care Net Technical Architect Name Role Phone Alex Rosario PA-C Unavailable Simi Louis MD Unavailable Unavailable Unavailable Rossi Asif LPN Unavailable Unavailable Ling KENNEDY, Mary Unavailable Unavailable Dr. David Araiza Primary Care Provider Dr. Simi Louis Referring Provider Dr. Simi Louis Other Provider Dr. Donnie Kim Attending Provider Simi Louis MD Attending Unavailable Simi Louis MD Referring Unavailable Simi Louis MD Consulting Unavailable Simi Louis MD Primary Care Provider REID CRESPO Attending Unavailable SIMI LOUIS Primary Care Unavailable Dr. Simi Louis MD Primary Care Provider Dr. Simi Louis MD Attending Provider Dr. Simi Louis MD Referring Provider Dr. Simi Louis MD Other Provider Dr. Jose Martin Nicolas MD Attending Provider Dr. Alvaro Hairston DO Emergency Provider [phone] Simi Louis Referring Unavailable Bonezzleeanne, Simi Attending Unavailable Bonetiffanie, Simi Primary Care Unavailable Alvaro Hairston Attending Unavailable Bonetiffanie, Simi Primary Care Unavailable Bonezzi, Simi Referring Unavailable Bonezzi, Simi Attending Unavailable Bonetiffanie, Simi Primary Care Unavailable Boneadi, Simi Referring Unavailable Bonezzi, Simi Consulting Unavailable Jose Martin Nicolas Attending Unavailable Simi Louis Primary Care Unavailable Medications Current Medications Medication Drug Class(es) Dates Sig (Normalized) Sig (Original) acetaminophen 325 mg / HYDROcodone bitartrate 5 mg oral tablet (20 sources) Opioid Agonist Start: 12-24-2024 take 1 tablet by mouth every six hours as needed for pain Hydrocodone-Aceta minophen 5-325 mg tablet Active 1 {tbl} PO EVERY 6 HOURS NEEDED as needed for Pain 10 3 December 24, 2024 Start: 09-12-2022 take 1 tablet by alyssia th every six hours Hydrocodone-Acetaminophen Active 1 TABLE T PO EVERY 6 HOURS September 12, 2022 1:00am Start: 08-13-2022 End: 12-24-2024 Hydrocodone-Acetaminophen 5- 325 mg Tablet Discontinued 1 {tbl} PO EVERY 6 HOURS as needed for Pain September 12, 2022 1:00am December 24, 2024 1:52am Comment on above: twenty amLODIPine 5 mg oral tablet (20 sources) Dihydropyridine Calcium Channel Ronaldo Start: take 1 tablet by mouth once daily amLODIPine (Norvasc) 5 MG tablet Take 5 mg by mouth daily. 03/01/2024 Active take 1 mg by mouth once daily am LODIPine 5 mg oral tablet daily (5 mg) Active ascorbic acid 113 mg / copper gluconate 0.4 mg / docosahexaenoic acid 87.5 mg / eicosapentaenoic acid 163 mg / lutein 2.5 mg / tocopherol acetate 100 unt / zeaxanthin 0.5 mg / zinc oxide 17.4 mg oral capsule (1 source) Vitamin C take 2 capsules by mouth once daily Multiple Vitamins-Minerals (PreserVision AREDS 2) capsule Take by mouth daily. Active Budesonide-Formoterol (20 sources) Corticosteroid, beta2-Adrenergi c Agonist Start: 023 Budesonide-Formoterol (Symbicort) 160-4.5 mcg/actuation Hfa Aerosol Inhaler Active 1 NMA INHALATION TWICE A DAY September 12, 2022 1:00am Start: 09-12-2022 Budesonide-For moterol (Symbicort) 160-4.5 mcg/actuation Hfa Aerosol Inhaler Active 1 INH INHALATION TWICE A DAY September 12, 2022 1:00am Start: 09-12-2022 Budesonide-For moterol (Symbicort) 160-4.5 mcg/actuation Hfa Aerosol Inhaler Active 1 INH INHALATION TWICE A DAY September 12, 2022 12:00am Start: 07-27-2022 End: 05-21-2023 Symbicort 160-4.5 mcg/actuat ion inhalation HFA Aerosol with Adapter 1 (one) inhalation bid for 0 days Quantity: 1 {Each} Refills: 0 Ordered: 21-May-2023 Rossi Asif LPN Start : 27-Jul-2022 End : 21-May-2023 Inactive Comments: rinse mouth afterwards Comment on above: rinse mouth afterwar ds cholecalciferol 0.025 mg ora l tablet (2 sources) Vitamin D cholecalciferol (Vitamin D3) 25 MCG (1000 UT) tablet Take by mouth. Active take 1 tablet by mouth once jakub y VITAMIN D3 25 MCG (1000 UT) TABS 1 tablet by mouth once a day cholecalciferol (vitamin d3) [id number] Alessia Farah hydroCHLOROthiazide 25 mg oral tablet (1 source) Thiazide Diuretic hydroCHLOROthi azide (HYDRODiuril) 25 MG tablet Active ketoconazole 20 mg/ml topical cream (1 source) Azole Antifungal Star t: 03-05 3- 24 ketoconazole (NIZOral) 2 % cream 1 APPLICATION TO (AFFECTED) SKIN 2 TIMES PER DAY 03/17/2024 Active losartan potassium 50 mg oral tablet (20 sources) Angiotensin 2 Receptor Ronaldo Star t: -3 0- 23 take 1 tablet by mouth once daily Losartan 50 mg Tablet Active 50 mg PO DAILY September 12, 2022 1:00am rosuvastatin calcium 5 mg oral tablet (18 sources) HMG-CoA Reductase Inhibitor Star t: -2 4-20 23 take 1 tablet by mouth once daily rosuvastatin (Crestor) 5 MG tablet Take 5 mg by mouth daily. 03/03/2024 Active tadalafil 20 mg oral tablet (1 source) Phosphodiesterase 5 Inhibitor tadalafil (Cialis) 2 0 MG tablet Active Vit C,H-Fz-Miuzm-Lutein-Zeax an (Preservision Areds-2) 250-90-40-1 mg Capsule (4 sources) Star t: 0203-24 take 2 capsules by mouth once daily as needed Vit C,P-Hj-Sahwc-Lutein-Waldemar melissa (Preservision Areds-2) 250-90-40-1 mg Capsule Active 1 {tbl} PO DAILY as needed for NOT PRN September 12, 2022 1:00am Start: 09-12-2022 Vit C,E-Zn-Director Of [employer] Services cq-Mptqju-Rcqewz (Preservision Areds-2) 250-90-40-1 mg Capsule Active 1 TABLET PO DAILY September 12, 2022 1:00am Start: 09-12-2022 Vit C,E-Zn-Director Of Tax Services el-Rcbvzs-Udntxp (Preservision Areds-2) 250-90-40-1 mg Capsule Active 1 TABLET PO DAILY September 12, 2022 12:00am Completed/Discontinued Medications Medication Drug Class(es) Dates Sig (Normalized) Sig (Original) 200 actuat albuterol 0.09 mg/actuat dry powder inhaler (15 sources) beta2-Adrenergic Agonist Start: 05-21-2023 ProAir RespiClick 90 mcg/actuation inhalation Aerosol Powder, Breath Activated 2 inhalations 4 times per day;shortness of breath or wheezing prn for 0 days Quantity: 1 {Each} Refills: 0 Ordered: 21-May-2023 Chano MENDIOLA, Simi Christian MD Start : 21-May-2023 Active Start: 11-27-2022 ProAir RespiCl ick 90 mcg/actuation inhalation Aerosol Powder, Breath Activated 2 inhalations 4 times per day;shortness of breath or wheezing prn for 0 days Quantity: 1 {Each} Refills: 0 Ordered: 27-Nov-2022 Chano MENDIOLA, Simi Christian MD Start : 27-Nov-2022 Active Start: 08-28-2022 ProAir RespiCl ick 90 mcg/actuation inhalation Aerosol Powder, Breath Activated 2 inhalations 4 times per day;shortness of breath or wheezing for 0 days Quantity: 1 {Each} Refills: 0 Ordered: 28-Aug-2022 Chano MENDIOLA, Simi Christian MD Start : 28-Aug-2022 Active ALBUTEROL SULFAT E HFA 108 (90 Base) MCG/ACT AERS albuterol sulfate [id number] Irlanda Salma AT Ascorbic Acid / Beta Carotene / cuprous oxide / Vitamin E / Zinc Oxide (14 sources) Vitamin C take 1 capsule by mouth once daily PreserVision AREDS-2 250-90-40-1 mg oral capsule daily (250-90-40-1 mg) Active aspirin 81 mg chewable tablet (4 sources) Platelet Aggregation Inhibitor, Nonsteroidal Anti-inflammatory Drug Start: 11-28-19 End: 05-21-20 take 1 tablet by mouth once daily aspirin 81 mg oral tablet,chewable 1 Tablet daily for 0 days Quantity: 30 {Tablet} Refills: 0 Ordered: 21-May-2023 Rossi Asif LPN Start : 27-Nov-2022 End : 21-May-2023 Inactive azithromycin 250 mg oral tablet (17 sources) Macrolide Antimicrobial Start: 07-27-20 End: 08-28-19 Zithromax Z-Zaid 250 mg oral tablet 1 Packet as directed on dose pack;For 250 mg dose pack: take 500 mg today (day 1), then 250 mg for 4 days (days 2-5) for 0 days Quantity: 1 {Packet} Refills: 0 Ordered: 28-Aug-2022 Rossi Asif LPN Start : 27-Jul-2022 End : 28-Aug-2022 Inactive codeine phosphate 2 mg/ml / guaiFENesin 40 mg/ml oral solution (17 sources) Opioid Agonist Start: 07-27-20 End: 08-28-19 codeine 10 mg-guaifenesin 200 mg/5 mL oral liquid 10 Milliliter every 6 hours as needed for cough for 0 days Quantity: 120 {Milliliter} Refills: 0 Ordered: 28-Aug-2022 Rossi Asif LPN Start : 27-Jul-2022 End : 28-Aug-2022 Inactive Comments: Medication taken as needed. one hundred and twenty Comment on above: Medication taken as needed. one hundred and twenty ubidecarenone 300 mg oral capsule (17 sources) Start: 05-21-20 coenzyme Q10 100 mg oral capsule 2 Capsule daily for 0 days Quantity: 60 {Capsule} Refills: 0 Ordered: 21-May-2023 Simi Louis MD, MD, Simi Serrano Start : 21-May-2023 Active Start: 05-21-2023 coenzyme Q10 3 00 mg oral capsule 2 Capsule daily for 0 days Quantity: 60 {Capsule} Refills: 0 Ordered: 21-May-2023 Simi Louis MD, MD, Dana M Start : 21-May-2023 Active Start: 11-27-2022 coenzyme Q10 3 00 mg oral capsule 2 Capsule daily for 0 days Quantity: 60 {Capsule} Refills: 0 Ordered: 27-Nov-2022 Simi Louis MD, MD, Dana M Start : 27-Nov-2022 Active Start: 08-28-2022 coenzyme Q10 1 00 mg oral capsule 2 Capsule daily for 0 days Quantity: 60 {Capsule} Refills: 0 Ordered: 27-Nov-2022 Laya NAPOLEONRossi Start : 28-Aug-2022 Active Problems Active Problems Problem Classification Problem Date Documented Da te Episodic/Chronic Acute bronchitis (20 sources) Acute bronchitis; Translations: [Acute bronchitis, complicated] 07-27-2022 Episodic Alcohol-related disorders (1 source) Alcoholic fibrosis and sclerosis of liver; 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] Onset: 03-04-2025 Chronic Anal and rectal conditions (1 source) Anal fistula; Translations: [Anal fistula] 04-23-2024 Episodic Chronic obstructive pulmonary disease and bronchiectasis (20 sources) Moderate chronic obstructive pulmonary disease; Translations: [COPD, moderate] 08-28-2022 Chronic Comment on above: right now not use pr oair but twice a month. not wake up at night with ss. no signs and symptoms otherwise he does not want a daily inhaler. mainly need the rescue inhaler for heavy exertion. Coagulation and hemorrhagic disorders (4 sources) Disorder of subcutaneous tissue; Translations: [Senile ecchymosis] 05-21-2023 Episodic Coronary atherosclerosis and other heart disease (20 sources) Coronary atherosclerosis; Translations: [Atherosclerosis of [place] coronary artery with stable angina pectoris, unspecified whether [place] or transplanted heart] 08-28-2022 Chronic Comment on above: CCTA 2 mild-mod Diseases of white blood cells (20 sources) Lymphocytosis; Translations: [Lymphocytosis] 08-28-2022 Chronic Comment on above: absolute count up pt was really sick 2 weeks prior willrecheck Disorders of lipid metabolism (20 sources) Hyperlipidemia; Translations: [Hyperlipidemia, mild] 08-28-2022 Chronic Comment on above: on crestor Essential hypertension (20 sources) Benign hypertension; Translations: [Hypertension, benign] 08-28-2022 Chronic Immunizations and screening for infectious disease (4 sources) Needs influenza immunization; Translations: [Need for prophylactic vaccination and inoculation against influenza (Renamed from Need for immunization against influenza)] 05-21-2023 Episodic Osteoarthritis (20 sources) Osteoarthritis of hip; Translations: [Osteoarthritis of hip] 08-13-2022 Chronic Other aftercare (1 source) Aftercare following joint replacement surgery; Translations: [Aftercare following joint replacement] Onset: 07-06-2021 07-06-2021 Chronic Other bone disease and musculoskeletal deformities (1 source) Avascular necrosis of bone of hip; Translations: [Idiopathic aseptic necrosis of right femur] Onset: 05-04-2021 05-04-2021 Chronic Other bone disease and musculoskeletal deformities (1 source) Avascular necrosis of bone of hip; Translations: [Idiopathic aseptic necrosis of left femur] Onset: 05-04-2021 05-04-2021 Chronic Other connective tissue disease (1 source) Presence of left artificial hip joint; Translations: [Hip joint replacement] Onset: 08-23-2021 08-23-2021 Chronic Other connective tissue disease (1 source) Pain in right arm; Translations: [Pain in right arm] Onset: 12-15-2024 Episodic Other lower respiratory disease (1 source) Cough; Translations: [Cough] 12-24-2024 Episodic Other nervous system disorders (1 source) Paresthesia of skin; Translations: [Paresthesia of skin] Onset: 12-15-2024 Episodic Other nutritional; endocrine; and metabolic disorders (20 sources) Overweight in adulthood with body mass index of 25 or more but less than 30; Translations: [BMI 28.0-28.9,adult] 08-28-2022 Episodic Other screening for suspected conditions (not mental disorders or infectious disease) (20 sources) Patient encounter status; Translations: [Encounter for prostate cancer screening] 08-28-2022 Episodic Residual codes; unclassified (20 sources) Family history of malignant melanoma; Translations: [Family history of melanoma] 08-28-2022 Episodic Comment on above: willsee sterling nate 12-25 Sprains and strains (1 source) Strain of muscle of chest wall; Translations: [Strain of muscle and tendon of front wall of thorax, initial encounter] 12-24-2024 Episodic Substance-related disorders (20 sources) Tobacco dependence in remission; Translations: [Tobacco abuse, in remission (Renamed from Tobacco dependence in remission)] 08-28-2022 Chronic Comment on above: heavy smokerover 30 years. Unclassified (20 sources) Onset: 04-22-2024 Unclassified (2 sources) New Patient; Translations: [New Patient] Onset: 04-22-2024 Unclassified (1 source) Cough, unspecified; Translations: [Cough, unspecified] Onset: 12-30-2024 Past or Other Problems Problem Classification Problem Date Documented Da te Episodic/Chronic Unclassified (1 source) Problem Unclassified (20 sources) Unspecified Diagnosis 09-03-2022 Results Test Name Value Interpretation Reference Range Facility 12 Lead EKGon 12-24-2024 12 Lead EKG [facility] Cardiovascular Services [address] [place] [address] 12 Lead EKG 12/24/24 0317 MR#: [id number] Acct: [id number] Name: REID CRENSHAW Rep #: [id number] : 1955 69 From: Jesica Vigil MD Attending Dr: Status: DEP ER Ordering Dr: Alvaro Hairston DO Date: 12/24/24 Location: ED Sex: M C Admitted: Test Reason : COUGH Blood Pressure : */* mmHG Vent. Rate : 70 BPM Atrial Rate : 70 BPM P-R Int : 156 ms QRS Dur : 80 ms QT Int : 412 ms P-R-T Axes : -10 -3 22 degrees QTcB Int : 444 ms Normal sinus rhythm Inferior infarct , age undetermined Abnormal ECG Confirmed by TAYLOR MENDIOLA, NAFISA ([id number]), editor map NASIR HINOJOSA ([id number]) on 12/29/2024 6:47:52 AM Referred By: Confirmed By: NFAISA VIGIL MD 12/29/24 0647 Date Jesica Vigil MD CC: Dr. Simi Louis MD; Dr. Alvaro Hairston DO Signed Normal [facility] Emergency Department Summary on 12-24-2024 Emergency Department Summary [facility] Medical Records Department [address] [place] [address] Emergency Department Summary 12/24/24 MR#: [id number] Acct: [id number] Name: REID CRENSHAW Rep #: [id number] : 1955 69 From: Alvaro Hairston DO PCP: Dr. Simi Louis MD Status:DEP ER Location: ED HPI History of Present Illness Chief Complaint: Cough Informant: patient Onset/Context/Timing Onset: Today Context: Sudden Onset Timing: Continuous Quality: Sharp Location: Left lateral ribs Worsened by: Coughing, deep breathing Relieved by: Nothing Narrative Narrative: Patient presents with left rib and chest pain that began today. Patient states it began suddenly. Patient states he felt a pop while he was coughing today. Patient states the pain is sharp. Patient states it is localized to the left side of his chest. Patient states his pain is worse with deep breathing and with coughing. Patient states nothing seems to help with the pain. Patient denies any fevers or chills. Patient states he has had a cough for the past few days. Patient denies any sputum production. [facility] Medical History (Updated 12/24/24 @ 03:[address] Alvaro Hairston DO) COPD, moderate Hypertension Osteoarthritis Home Medications ???Medication ???Instructions ???Recorded ???Last Taken ???Type amlodipine 5 mg tablet 5 mg PO DAILY 09/12/22 Unknown His tory budesonide-formoterol HFA 160 1 inh inhalation BID 09/12/22 Unkn own History mcg-4.5 mcg/actuation aerosol inhaler (Symbicort) losartan 50 mg tablet 50 mg PO DAILY 09/12/22 Unknown Hi story rosuvastatin 5 mg tablet 5 mg PO DAILY 09/12/22 Unknown His tory vit C 250 mg-vit E 90 mg-zinc 40 1 tab PO DAILY PRN NOT PRN 3 Unknown History mg-copper 1 qm-zkhfgb-mphbhv capsule (PreserVision AREDS-2) hydrocodone-acetaminop hen 5-325mg 1 tab PO Q6H PRN PRN Pain 3 days 12/24/24 Unknown Rx 5mg-325mg #10 TABLETS Allergy/AdvReac Type Severity Reaction Status Date / Time No Known Allergies Allergy Verified 09/11/22 13:30 Surgical History (Updated 12/24/24 @ 02:[address] Alvaro Hairston, DO) History of hip replacement, total Social History (Updated 09/12/22 @ 13:16 by Gaby Mayers) Smoking Status: Former smoker alcohol intake: current details: 5 BEERS/DAY ROS ROS ED Constitutional Constitutional ED: Denies chills or fever(s) Eyes Eyes: Denies blurry vision or change in vision ENT ENT ED: Denies rhinorrhea or sore throat Cardiovascular Cardiovascular: Reports chest pain; Denies palpitations Respiratory/Chest Respiratory/Chest: Reports cough and dyspnea Gastrointestinal Gastrointestinal: Denies nausea or vomiting Genitourinary Genitourinary ED: Denies dysuria or hematuria Musculoskeletal Musculoskeletal: Denies back pain or neck pain Integumentary Denies abscess or rash Neurologic Neurologic: Denies headache(s) or weakness Allergic/Immunologic Allergic/Immunologic ED: Denies mouth swelling or urticaria EXAM Physical Exam Const Vital Signs: 12/24/24 01:48 12/24/24 01:54 Temperature 98.1 F Temperature Source Oral Pulse Rate 88 Respiratory Rate 16 Respiratory Effort Normal Respiratory Depth Normal Respiratory Pattern Normal Blood Pressure 171/93 H Blood Pressure Mean 119 Pulse Ox 98 Oxygen Delivery Method Room Air Room Air Positive well nourished and well developed General Appearance ED: well developed and NAD HEENT Reports moist mucous membranes Neck supple and no JVD Chest Wall Chest Narrative: There is tenderness to palpation of the left lateral chest wall. There is no edema or ecchymosis. There is no subcutaneous emphysema palpated. Resp normal respiratory effort and clear to auscultation bilaterally Cardio regular rate and regular rhythm GI non-tender and non-distended Palpation: soft Neuro oriented x3, CN's II-XII intact bilaterally and no sensory deficits noted Sensorium / Orientation: alert Motor Exam: strength 5/5 throughout Psych mental status grossly normal MDM MDM MDM Narrative Medical decision making narrative: Differential diagnosis includes rib fracture, pneumothorax, intercostal strain, cardiac dysrhythmia, cardiac ischemia, and contusion. X-rays of the left ribs will be obtained to assess for rib fracture and pneumothorax. EKG will be obtained to assess for cardiac dysrhythmia and cardiac ischemia. Radiography Diagnostic Testing: Clinical Impression(s) from Imaging Studies Ribs w/Chest X-Ray 12/24/24 03:09 IMPRESSION: No evidence of acute process as above. Reading Location: [facility] X-rays of the left ribs were obtained. There are 5 views. On my independent interpretation, there is (more content not included)... Normal [facility] Ribs Uni Min 3V w/PA Cheston 12-24-2024 Ribs Uni Min 3V w/PA Chest [facility] Imaging Services [address] [place] [address] Ribs Uni Min 3V w/PA Chest MR#: [id number] Acct: [id number] Name: REID CRENSHAW Rep #: [id number] : 1955 M 69 From: Jacques Aragon MD PCP: Dr. Simi Louis MD Status: REG ER Study: Ribs Uni Min 3V w/PA Chest Date of Exam: 12/24 Exam# [id number] Ordering Dr: Alvaro Hairston DO PROCEDURE: RIBS UNI MIN 3V W/PA CHEST 12/24/2024 REASON FOR EXAM: PAIN TECHNIQUE: PA chest and four views of the left ribs, 5 total images COMPARISON: None available FINDINGS: The lungs appear clear. No pneumothorax or pleural effusion identified. The cardiac and mediastinal contours appear within limits. Atherosclerotic change at the aortic arch noted. The ribs appear within limits. No fracture identified. RAD/Ribs Uni Min 3V w/PA Chest IMPRESSION: No evidence of acute process as above. Reading Location: [facility] CC: Dr. Simi Louis MD; Dr. Alvaro Hairston DO [facility]ba Internship: Signed Normal [facility] NCS and/or EMG Patienton NCS and/or EMG Patient [facility] Pulmonary Services/Neurology [address] [place] [address] MR#: [id number] Acct: [id number] Name: REID CRENSHAW Rep #: [id number] : 1955 69 From: Jose Martin Nicolas MD Referring Dr: Simi Louis MD Status: REG CLI Location: PSN Date: 11/18/24 Sex: M C NCS and/or EMG Patient Report Ordering Doctor: Simi Louis DATE OF SERVICE: 11/18/24 Reid presents for electrodiagnostic testing of the right upper limb. He reports numbness and tingling in the right forearm. He denies neck pain. Electrodiagnostic findings: Right median motor nerve demonstrates normal distal latency, amplitude and conduction velocity. Normal ulnar motor response, including conduction across the elbow. Normal median sensory response. Normal right ulnar radial sensory responses. Normal median and ulnar F???wave. Needle EMG test was performed the right upper limb. All muscles tested showed no evidence of denervation with normal motor unit action potentials. Electrodiagnostic impression: This is a normal electrodiagnostic study of the right upper limb. There is no electrodiagnostic evidence for peripheral neuropathy, including carpal tunnel or cubital tunnel syndrome. There is no electrodiagnostic evidence for cervical radiculopathy. Multi Select Codes Neurology Neurology Interp Codes: 32938-79 Musc test done w/n test comp (interp) and 99901-74 Nrv cndj test 7- 8 studies (interp) 11/18/24 1340 Date Jose Martin Nicolas MD CC: Dr. Jose Martin Nicolas MD; Dr. Simi Louis MD Date Dictated: 11/18/241336 Date Transcribed: 11/18/241336 Mba Internship: AA Signed Normal [facility] Office Visiton 04-22-2024 Follow-up visit [id number] Reid Crenshaw 1955 M Date Provider Department Center 04/22/2024 [id number]-YAFULURREID CRESPO [facility] COL None Family History Family Status - Relation Status Age at Mother Father Sister Alive Brother Alive Level of Service:00160 MT OFFICE/OUTPATIENT NEW LOW MDM 30 MINUTES Reason for Visit and Comments: New Patient [542] - evaluation for fistula, builds up then drain a bloody type drainage,denies pain/fevers/trouble with urniation/BM, hx of fistula for [address] Lackey [0] - Pt unaccompanied Normal [facility] Progress Noteon 04-22-2024 Progress Note @ASSESSMENTBEGINPHAN TO M@ Assessment: Diagnosis Plan 1. Anal fistula @PLANBEGINPHANTOM@ Plan: No further workup or treatment as agreed with above discussion Follow up prn Objective History: Reid Crenshaw is a 68 y.o. male who presents today for evaluation of a presumed anal fistula. The patient notices intermittent tenderness and drainage from an area in the right anterior quadrant. He had drainage of a very large perianal abscess about 20 years ago in the area. He says it never healed quite properly. Intermittently, it will be uncomfortable and drain and milky fluid. Recently, it has begun to bleed as well as have this drainage. He is able to live with the symptoms, but he is concerned whether or not the bleeding represents something dangerous. Office exam does not clearly demonstrate a fistula, but all of the findings and certainly the history are consistent with this and this is the presumed diagnosis although it is not proven. The patient is told the bleeding from the fistula tract is not in and of itself a dangerous thing. He is much relieved by this. He is current on colonoscopy. Options include a rectal exam under anesthesia where an attempt would be made to find the fistula. This may or may not be successful. The second option would be for the patient to contact the office if the fistula is actively draining, and we would work him in and see him and attempted demonstrate this for certain. The third approach would be to just wait and see what happens. The patient states that he was mainly interested in whether or not the bleeding was a dangerous thing. He is not interested in any of the other options. If he changes his mind he can contact the office or if his symptoms get worse. All of his questions were answered and he shows good understanding. The patient is seen in the office today with Irma Richye CMA. Physical Exam: @VSAMB@ Physical Exam Constitutional: General: He is not in acute distress. Appearance: He is not ill-appearing, toxic-appearing or diaphoretic. HENT: Head: Normocephalic. Nose: Nose normal. Eyes: General: No scleral icterus. Conjunctiva/sclera: Conjunctivae normal. Cardiovascular: Rate and Rhythm: Normal rate. Pulmonary: Effort: Pulmonary effort is normal. No respiratory distress. Breath sounds: No stridor. Abdominal: General: Abdomen is flat. There is no distension. Genitourinary: Comments: Complete office anorectal exam is performed today including external inspection, digital exam, and anoscopy. The patient has minor internal hemorrhoidal disease with his largest being in the right posterior quadrant. This is perhaps a grade 2 hemorrhoid. He has no external hemorrhoids. Sphincter tone is adequate. There are no masses. There is no Crohn's. 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 An internal opening is not noted on exam. Probing of the presumed tract was attempted but not possible. It was not clearly demonstrated that this was a fistula. There is no abscess or cellulitis. Skin: General: Skin is warm and dry. Coloration: Skin is not jaundiced. Neurological: Mental Status: He is alert and oriented to person, place, and time. Mental status is at baseline. Psychiatric: Mood and Affect: Mood normal. Behavior: Behavior normal. Thought Content: Thought content normal. Judgment: Judgment normal. ROS: Review of Systems as recordedby the medical billing associate has been reviewed by me, and I agree except as noted inthe HPI. Past Medical History: Diagnosis Date Hyperlipidemia Hypertension Past Surgical History: Procedure Laterality Date ABSCESS DRAINAGE perirectal COLONOSCOPY HIP SURGERY Bilateral TONSILLECTOMY @MEDED@ Social History Socioeconomic History Marital status: Spouse name: Not on file Number of children: Not on file Years of education: Not on file Highest education level: Not on file Occupational History Not on file Tobacco Use Smoking status: Former Types: Cigarettes Smokeless tobacco: Never Substance and Sexual Activity Alcohol use: Yes Drug use: Never Sexual activity: Not on file Other Topics Concern Not on file Social History Narrative Not on file Social Determinants of Health Financial Resource Strain: Not on file Food Insecurity: Not on file Transportation Needs: Not on file Physical Activity: Not on file Stress: Not on file Social Connections: Not on file Intimate Partner Violence: Not on file Housing Stability: Not on file No family history on file. Allergies: No Known Allergies PCP: SIMI LOUIS MD Electronically signedby Reid Crespo MD on 04/23/2024 at 12:55 PM. Normal [facility] 36on 03-20-2024 36 Patient returned lesley l, states currently the fistula will build up and then drain a bloody type drainage, as to in past it was a slow drain daily, he feels well denies fevers/pain/swelling/n ausea/vomiting/no trouble with urination/bowel movements. Patient has been scheduled with Dr. Crespo 04/22/24. Normal [facility] 36 Left VM for patient to return call assess symptoms, and schedule accordingly. Normal [facility] HEPATIC FUNCTION PANEL ([id number])Ordered By: Supervisor Of Officials on 11-08-2022 Albumin [Mass/Vol] 4.4 g/dL Normal 3.8-4.8 [facility]; [facility] Work Phone: Comment on above: in three months (tanesha roximately); PATIENT WAS FASTINGPERFORMED BY: CB [facility] [id number] [facility]DriveSelect [facility] [id number] ALP [Catalytic activity/Vol] 160 U/L Abnormal 44-121 [facility]; [facility] Work Phone: Comment on above: in three months (tanesha roximately); PATIENT WAS FASTINGPERFORMED BY: CB [facility] [id number] [facility]Select [facility] [id number] ALT [Catalytic activity/Vol] 16 U/L Normal 0-44 [facility]; [facility] Work Phone: Comment on above: in three months (tanesha roximately); PATIENT WAS FASTINGPERFORMED BY: CB [facility] [id number] [address] RoadDuRutherford Regional Health System [id number] AST [Catalytic activity/Vol] 14 U/L Normal 0-40 [facility]; [facility] Work Phone: Comment on above: in three months (tanesha roximately); PATIENT WAS FASTINGPERFORMED BY: CB [facility] [id number] RoadDublin [place] [id number] Bilirubin [Mass/Vol] 1.0 mg/dL Normal 0.0-1.2 [facility]; [facility] Work Phone: Comment on above: in three months (tanesha roximately); PATIENT WAS FASTINGPERFORMED BY: CB [facility] [id number] [address] RoadDublin [place] [id number] Bilirubin.direct [Mass/Vol] 0.32 mg/dL Normal 0.00-0.40 [facility]; [facility] Work Phone: Comment on above: in three months (tanesha roximately); PATIENT WAS FASTINGPERFORMED BY: MARCOS [facility] [id number] RoadDublin [place] [id number] Protein [Mass/Vol] 6.5 g/dL Normal 6.0-8.5 [facility]; [facility] Work Phone: Comment on above: in three months (tanesha roximately); PATIENT WAS FASTINGPERFORMED BY: MARCOS [facility] [id number] [address]Dublin [place] [id number] LIPID PANEL ([id number])Ordered B y: Supervisor Of Officials on 11-08-2022 Cholesterol [Mass/Vol] 135 mg/dL Normal 100-199 [facility]; [facility] Work Phone: Comment on above: in three months (tanesha roximately); PATIENT WAS FASTINGPERFORMED BY: MARCOS [facility] [id number]Dublin [place] [id number] Cholesterol in HDL [Mass/Vol] 51 mg/dL Normal [facility]; [facility] Work Phone: Comment on above: in three months (tanesha roximately); PATIENT WAS FASTINGPERFORMED BY: CB [facility] [id number] RoadDublin [place] [id number] Triglyceride [Mass/Vol] 73 mg/dL Normal 0-149 [facility]; [facility] Work Phone: Comment on above: in three months (tanesha roximately); PATIENT WAS FASTINGPERFORMED BY: MARCOS [facility] [id number]bl[address] [place] [id number] LIPID PANEL ([id number]) 15 mg/dL Normal 5-40 [facility]; [facility] Work Phone: Comment on above: in three months (tanesha roximately); PATIENT WAS FASTINGPERFORMED BY: [facility] [id number] [address]blin [place] [id number] LIPID PANEL ([id number]) 69 mg/dL Normal 0-99 [facility]; [facility] Work Phone: Comment on above: in three months (tanesha roximately); PATIENT WAS FASTINGPERFORMED BY: [facility] [id number] [facility] [id number] LIPID PANEL ([id number]) 1.4 {ratio} Normal 0.0-3.6 [facility]; [facility] Work Phone: Comment on above: LDL/HDL Ratio Men Wo men 1/2 Avg.Risk 1.0 1.5 Avg.Risk 3.6 3.2 2X Avg.Risk 6.2 5.0 3X Avg.Risk 8.0 6.1 in three months (tanesha roximately); PATIENT WAS FASTINGPERFORMED BY: [facility] [id number] [facility] [id number] PSA (PROSTATE SPECIFIC ANTIG EN) (V76.44)Ordered By: Supervisor Of Officials on 08-16-2022 Prostate specific Ag [Mass/Vol] 1.0 ng/mL Normal 0.0-4.0 [facility]; [facility] Work Phone: Comment on above: Mil ECLIA methodol ogy. .According to the [employer] [employer], Serum PSA shoulddecrease and remain at undetectable levels after radicalprostatectomy. The AUA defines biochemical recurrence as an initialPSA value 0.2 ng/mL or greater followed by a subsequent confirmatoryPSA value 0.2 ng/mL or greater.Values obtained with different assay methods or kits cannot be usedinterchangeably. Results cannot be interpreted as absolute evidenceof the presence or absence of malignant disease. PATIENT NOT FASTINGP ERFORMED BY: [employer] [facility] [id number] [facility] [id number] Clinical Summary: Crystal barrera 09-20-2021 MC75 OP Visit Invalid Interpretation Code [facility] Work Phone: Absolute lymphocyte counton 09-01-2021 Lymphocytes Auto (Unsp spec) [#/Vol] 3.07 10*3/uL 0.83-4.51 [facility] Work Phone: Amorphous sediment detection in urine sediment by light microscopyon 09-01-2021 Amorphous sediment LM Ql (Urine sed) 2+ [facility] Work Phone: Basophil percentageon 2021 Basophil percentage 0 SEEN /hpf [facility] Work Phone: Basophils/100 WBC (Bld) 0.5 % 0-1 [facility] Work Phone: Bilirubin [Mass/Vol] 0.90 mg/dL 0.20-1.00 [facility] Work Phone: Comment on above: For patients on eltr ombopag therapy, use of Dimension [place] TBIL is not recommended. Chloride [Moles/Vol] 105 mmol/L 98-107 [facility] Work Phone: Cholesterol [Mass/Vol] 164 mg/dL <200 [facility] Work Phone: Comment on above: <200 mg/dL Desirable 200-240 mg/dL Borderline >240 mg/dL High Risk Eosinophils/100 WBC (Bld) 1.7 % 0-5 [facility] Work Phone: Glucose [Mass/Vol] 83 mg/dL 74-106 [facility] Work Phone: Neutrophils (Bld) [#/Vol] 3.6 10*3/uL 2.0-7.7 [facility] Work Phone: Neutrophils/100 WBC (Bld) 47.5 % 47-70 [facility] Work Phone: Potassium [Moles/Vol] 3.8 mmol/L 3.5-5.1 [facility] Work Phone: Protein [Mass/Vol] 7.4 g/dL 6.4-8.2 [facility] Work Phone: Sodium [Moles/Vol] 136 mmol/L 136-145 [facility] Work Phone: Triglyceride [Mass/Vol] 138 mg/dL [facility] Work Phone: Comment on above: The drugs N-Acetylcy steine and Metamizole may falsely depress this assay.Serum Triglycerides Reference Interval Normal <150 mg/dL Borderline high 150 - 199 mg/dL High 200 - 499 mg/dL Very High > or = 500 mg/dL WBC (Bld) [#/Vol] 7.5 10*3/uL 4.4-11.0 [facility] Work Phone: Bilirubin Test strip Ql (U)o n 09-01-2021 Bilirubin Ql (U) Negative Negative [facility] Work Phone: Blood erythrocytes count (nu mber/volume)on 09-01-2021 RBC (Bld) [#/Vol] 4.73 10*6/uL 4.6-6.2 [facility] Work Phone: Blood hemoglobin measurement (mass/volume)on 09-01-2021 Hemoglobin (Bld) [Mass/Vol] 15.6 g/dL 13.0-16.5 [facility] Work Phone: Blood lymphocytes/100 leukoc yteson 09-01-2021 Lymphocytes/100 WBC (Bld) 41.0 % 19-41 [facility] Work Phone: Blood monocytes/100 leukocyt eson 09-01-2021 Monocytes/100 WBC (Bld) 8.8 % 0-10 [facility] Work Phone: Blood platelet mean volumeon 09-01-2021 Platelet mean volume (Bld) [Entitic vol] 9.9 fL 6.2-12.0 [facility] Work Phone: Determination of erythrocyte mean corpuscular volume (MCV)on 09-01-2021 MCV (RBC) [Entitic vol] 95.3 fL 80-94 [facility] Work Phone: Hematocrit Auto (Bld) [Volum e fraction]on 09-01-2021 Hematocrit (Bld) [Volume fraction] 45.1 % 40-54 [facility] Work Phone: Ketones Test strip Ql (U)on 09-01-2021 Ketones Ql (U) Negative Negative [facility] Work Phone: Laboratory - Chemistry and C hemistry - challengeon 09-01-2021 ALP [Catalytic activity/Vol] 146 U/L 45-117 [facility] Work Phone: ALT [Catalytic activity/Vol] 23 U/L 16-61 [facility] Work Phone: CO2 [Moles/Vol] 26.0 mmol/L 21.0-32.0 [facility] Work Phone: Globulin (S) [Mass/Vol] 3.6 g/dL 2.2-4.2 [facility] Work Phone: Magnesium [Mass/Vol] 2.6 mg/dL 1.6-2.6 [facility] Work Phone: Urea nitrogen/Creatinin e [Mass ratio] 15.1 mg/mg 10-20 [facility] Work Phone: Laboratory - Hematology and Cell countson 09-01-2021 Erythrocyte distribution width (RBC) [Entitic vol] 45.4 fL 35.1-43.9 [facility] Work Phone: Erythrocyte distribution width (RBC) [Ratio] 13.1 % 11.6-14.6 [facility] Work Phone: Immature granulocytes/100 WBC (Bld) 0.500 % 0.0-0.9 [facility] Work Phone: Comment on above: IG% - Immature Granu locytes (promyelocytes, myelocytes and metamyelocytes) > 1% indicates that a LEFT SHIFT is Present. MCH (RBC) [Entitic mass] 33.0 pg 27.0-32.0 [facility] Work Phone: Nucleated RBC/100 WBC (Bld) [Ratio] 0 % 0-5 [facility] Work Phone: MCHC Auto (RBC) [Mass/Vol]on 09-01-2021 MCHC (RBC) [Mass/Vol] 34.6 g/dL 32-36 [facility] Work Phone: Mucus LM Ql (Urine sed)on Mucus Ql (Urine sed) 0 SEEN /hpf [facility] Work Phone: Nitrite Test strip Ql (U)on 09-01-2021 Nitrite Ql (U) Negative Negative [facility] Work Phone: No Panel Informationon 09-01 Estimated GFR (MDRD) Amer 114 mL/min >60 [facility] Work Phone: Comment on above: GFR Calc Estimated GFR (MDRD) Non-Af Amer 94 mL/min >60 [facility] Work Phone: Comment on above: Non- GFR Calc Thyroid Stimulating Hormone (TSH) 1.65 uIU/mL 0.358-3.74 [facility] Work Phone: Platelets bldon 09-01-2021 Platelets (Bld) [#/Vol] 171 10*3/uL 150-450 [facility] Work Phone: Protein Test strip Ql (U)on 09-01-2021 Protein Ql (U) Negative Negative [facility] Work Phone: Serum or plasma albumin ivett urement (mass/volume)on 09-01-2021 Albumin [Mass/Vol] 3.8 g/dL 3.2-5.0 [facility] Work Phone: Serum or plasma albumin/glob ulin mass ratioon 09-01-2021 Albumin/Globulin [Mass ratio] 1.1 {ratio} 0.9-2.4 [facility] Work Phone: Serum or plasma calcium ivett urement (mass/volume)on 09-01-2021 Calcium [Mass/Vol] 8.8 mg/dL 8.5-10.1 [facility] Work Phone: Serum or plasma cholesterol in HDL measurement (mass/volume)on 09-01-2021 Cholesterol in HDL [Mass/Vol] 42 mg/dL [facility] Work Phone: Comment on above: The drugs N-Acetylcy steine and Metamizole may falsely depress this assay. Reference Range HDL <40 mg/dL Low HDL Cholesterol HDL >or= 60 mg/dL High HDL Cholesterol Serum or plasma cholesterol in VLDL measurement (mass/volume)on 09-01-2021 Cholesterol in VLDL [Mass/Vol] 28 mg/dL 5-40 [facility] Work Phone: Serum or plasma creatinine m easurement (mass/volume)on 09-01-2021 Creatinine [Mass/Vol] 0.86 mg/dL 0.70-1.30 [facility] Work Phone: Comment on above: The validity of the calculated GFR & GFRAA in patients over 70 years has not been determined. Clinical correlation is essential. Serum or plasma low density lipoprotein (LDL) cholesterol measurement (mass/volume)on 09-01-2021 Cholesterol in LDL [Mass/Vol] 94 mg/dL 0-130 [facility] Work Phone: Serum or plasma urea nitroge n measurement (mass/volume)on 09-01-2021 Urea nitrogen [Mass/Vol] 13 mg/dL 7-18 [facility] Work Phone: Squamous epithelial cells de tection in urine sediment by light microscopyon 09-01-2021 Epithelial cells.squamous LM Ql (Urine sed) 0 SEEN /hpf [facility] Work Phone: Thin prep Papanicolaou smear with manual screeningon 09-01-2021 Thin prep Papanicolaou smear with manual screening 15 U/L 15-37 [facility] Work Phone: Thin prep Papanicolaou smear with manual screening 5 5-15 [facility] Work Phone: Urine blood detectionon 08-06 RBC Ql (U) Negative Negative [facility] Work Phone: RBC Ql (U) 0 SEEN /hpf [facility] Work Phone: Urine clarityon 09-01-2021 Clarity (U) Sl. Cloudy Clear [facility] Work Phone: Urine color determinationon 09-01-2021 Color (U) Yellow Yellow [facility] Work Phone: Urine glucose detectionon Glucose Ql (U) Normal mg/dl Normal [facility] Work Phone: Urine leukocyte esterase det ection by dipstickon 09-01-2021 Leukocyte esterase Test strip Ql (U) Negative Negative [facility] Work Phone: Urine pHon 09-01-2021 pH (U) 8.0 [pH] [facility] Work Phone: Urine sediment bacteria coun t by microscopy (number/high power field)on 09-01-2021 Bacteria LM.HPF (Urine sed) [#/Area] 0 /[HPF] None Seen [facility] Work Phone: Urine specific gravity measu rementon 09-01-2021 Specific gravity (U) [Rel density] 1.015 [facility] Work Phone: Urobilinogen Auto test strip Ql (U)on 09-01-2021 Urobilinogen Ql (U) Normal mg/dl Normal [facility] Work Phone: Vital Signs Date Time Vital Sign Value Performing Clinician Facility 12-24-2024 03:50-0400 Body temperature 98.2 [degF] Dr. Simi Louis MD Work Phone: [facility] 12-24-2024 03:50-0400 Diastolic blood pressure 79 mm[Hg] Dr. Simi Louis MD Work Phone: [facility] 12-24-2024 03:50-0400 Heart rate 73 /min Dr. Simi Louis MD Work Phone: [facility] 12-24-2024 03:50-0400 Respiratory rate 14 /min Dr. Simi Louis MD Work Phone: [facility] 12-24-2024 03:50-0400 SaO2% (BldA) [Mass fraction] 99 % Dr. Simi Louis MD Work Phone: [facility] 12-24-2024 03:50-0400 Systolic blood pressure 123 mm[Hg] Dr. Simi Louis MD Work Phone: [facility] 12-24-2024 01:48-0400 Body height 177.[address] Simi Louis MD Work Phone: [facility] 04-22-2024 10:21-0400 Body height 179.1 cm Reid Crespo MD Work Phone: [facility] 04-22-2024 10:21-0400 Body mass index (BMI) [Ratio] 30.19 kg/m2 Reid Crespo MD Work Phone: [facility] 04-22-2024 10:21-0400 Body temperature 98.1 [degF] Reid Crespo MD Work Phone: [facility] 04-22-2024 10:21-0400 Body weight 96.8 kg Reid Crespo MD Work Phone: [facility] 04-22-2024 10:21-0400 Diastolic blood pressure 84 mm[Hg] Reid Crespo MD Work Phone: [facility] 04-22-2024 10:21-0400 Heart rate 72 /min Reid Crespo MD Work Phone: [facility] 04-22-2024 10:21-0400 Systolic blood pressure 130 mm[Hg] Reid Crespo MD Work Phone: [facility] 05-21-2023 11:20-0400 Body height 177.8 cm Rossi Asif LPN [facility] Work Phone: 05-21-2023 11:20-0400 Body mass index (BMI) [Ratio] 30.13 kg/m2 Rossi Asif AIX ADMINISTRATOR [facility]; [facility] Work Phone: 05-21-2023 11:20-0400 Body surface area Derived from formula 2.13 m2 Rosis Asif [place] [facility] Work Phone: 05-21-2023 11:20-0400 Body temperature 998.1 [degF] Rossi Asif AIX ADMINISTRATOR [facility]; [facility] Work Phone: 05-21-2023 11:20-0400 Body weight 95.26 kg Rossi Asif AIX ADMINISTRATOR [facility] Work Phone: 05-21-2023 11:20-0400 Diastolic blood pressure 72 mm[Hg] Rossi Asif [place] [facility] Work Phone: Comment on above: Patient Position: Si tting; Cuff Location: Left Arm; Cuff Size: Standard 05-21-2023 11:20-0400 Heart rate 75 /min Rossi Asif AIX ADMINISTRATOR [facility]; [facility] Work Phone: Comment on above: Pattern: Regular 05-21-2023 11:20-0400 Respiratory rate 16 /min Rossi Asif AIX ADMINISTRATOR [facility] Work Phone: Comment on above: Pattern: Unlabored 05-21-2023 11:20-0400 SaO2% (BldA) [Mass fraction] 95 % Rossi Asif LPN [facility] Work Phone: Comment on above: Room air 05-21-2023 11:20-0400 Systolic blood pressure 118 mm[Hg] Rossi Asif AIX ADMINISTRATOR [facility]; [facility] Work Phone: Comment on above: Patient Position: Si tting; Cuff Location: Left Arm; Cuff Size: Standard 11-27-2022 10:03-0400 Body height 177.8 cm Rossisalma Asif AIX ADMINISTRATOR [facility]; [facility] Work Phone: 11-27-2022 10:03-0400 Body mass index (BMI) [Ratio] 29.34 kg/m2 Rossi Asif LPN [facility]; [facility] Work Phone: 11-27-2022 10:03-0400 Body surface area Derived from formula 2.11 m2 Rossi Asif [place] [facility] Work Phone: 11-27-2022 10:03-0400 Body temperature 98.1 [degF] Rossi Asif LPN [facility] Work Phone: 11-27-2022 10:03-0400 Body weight 92.76 kg Rossi Asif [place] [facility] Work Phone: 11-27-2022 10:03-0400 Diastolic blood pressure 72 mm[Hg] Rossi Asif [place] [facility] Work Phone: Comment on above: Patient Position: Si tting; Cuff Location: Left Arm; Cuff Size: Standard 11-27-2022 10:03-0400 Heart rate 84 /min Rossi Asif [place] [facility] Work Phone: Comment on above: Pattern: Regular 11-27-2022 10:03-0400 Respiratory rate 16 /min Rossi Asif [place] [facility] Work Phone: Comment on above: Pattern: Unlabored 11-27-2022 10:03-0400 SaO2% (BldA) [Mass fraction] 97 % Rossi Asif LPN [facility]; [facility] Work Phone: Comment on above: Room air 11-27-2022 10:03-0400 Systolic blood pressure 130 mm[Hg] Rossi Laya [place] [facility]; [facility] Work Phone: Comment on above: Patient Position: Si tting; Cuff Location: Left Arm; Cuff Size: Standard 09-12-2022 13:22-0500 Body height 177.[address] David Araiza Work Phone: [facility] 09-12-2022 13:22-0500 Body mass index (BMI) [Ratio] 29.4 kg/m2 Dr. David Araiza Work Phone: [facility] 09-12-2022 13:22-0500 Body temperature 98.7 [degF] Dr. David Araiza Work Phone: [facility] 09-12-2022 13:22-0500 Body weight 92.[address] David Araiza Work Phone: [facility] 09-12-2022 13:22-0500 Diastolic blood pressure 78 mm[Hg] Dr. David Araiza Work Phone: [facility] [facility] 09-12-2022 13:22-0500 Heart rate 68 /min Dr. David Araiza Work Phone: [facility] 09-12-2022 13:22-0500 Respiratory rate 16 /min Dr. David Araiza Work Phone: [facility] 09-12-2022 13:22-0500 SaO2% (BldA) [Mass fraction] 99 % Dr. David Araiza Work Phone: [facility] 09-12-2022 13:22-0500 Systolic blood pressure 159 mm[Hg] Dr. David Araiza Work Phone: [facility] 08-28-2022 09:29-0500 Body height 177.8 cm [facility]; [facility] Work Phone: 08-28-2022 09:29-0500 Body mass index (BMI) [Ratio] 28.77 kg/m2 [facility]; [facility] Work Phone: 08-28-2022 09:29-0500 Body surface area Derived from formula 2.09 m2 [facility]; [facility] Work Phone: 08-28-2022 09:29-0500 Body temperature 98.1 [degF] Rossi Asif LPN [facility] Work Phone: 08-28-2022 09:29-0500 Body weight 90.95 kg Rossi Asif LPN [facility] Work Phone: 08-28-2022 09:29-0500 Diastolic blood pressure 70 mm[Hg] Rossi Asif LPN [facility] Work Phone: Comment on above: Patient Position: Si tting; Cuff Location: Left Arm; Cuff Size: Standard 08-28-2022 09:29-0500 Heart rate 91 /min Rossi Asif LPN [facility] Work Phone: Comment on above: Pattern: Regular 08-28-2022 09:29-0500 Respiratory rate 16 /min Rossi Asif LPN [facility] Work Phone: Comment on above: Pattern: Unlabored 08-28-2022 09:29-0500 SaO2% (BldA) [Mass fraction] 96 % Rossi Asif LPN [facility] Work Phone: Comment on above: Room air 08-28-2022 09:29-0500 Systolic blood pressure 128 mm[Hg] Rossi Asif LPN [facility] Work Phone: Comment on above: Patient Position: Si tting; Cuff Location: Left Arm; Cuff Size: Standard NEGATED: Highlighted [id number] 09:17-0500 Body height 180.34 cm [facility] Work Phone: NEGATED: Highlighted [id number] 09:17-0500 Body height 180 cm [facility] Work Phone: NEGATED: Highlighted [id number] 09:17-0500 Body mass index (BMI) [Ratio] 29.25 kg/m2 [facility] Work Phone: NEGATED: Highlighted [id number] 09:17-0500 Body temperature 97.7 [degF] [facility] Work Phone: NEGATED: Highlighted [id number] 09:17-0500 Body weight 94.8 kg [facility] Work Phone: NEGATED: Highlighted [id number] 09:17-0500 Body weight 95 kg [facility] Work Phone: Encounters Encounter Date Encounter Type Care Provider Facility Start: 03-05-2025 ambulatory [facility] Facility:[facility] Start: 12-24-2024 End: 12-24-2024 Emergency department patient visit Dr. Simi Louis MD Work Phone: -Emergency Department Work Phone: Start: 11-18-2024 ambulatory [facility] Start: 11-18-2024 Non-patient / Non-visit Dr. Jose Martin salinas MD -[facility]- Start: 11-18-2024 End: 11-18-[address] Simi Louis MD Work Phone: [facility] Work Phone: Start: 11-18-2024 End: 11-18-[address] Simi Louis MD -Pulmonary Services/Neurology Work Phone: Start: 11-18-2024 End: 11-18-2024 ambulatory [facility] Facility:[facility] Start: 04-22-2024 End: 04-22-2024 Office outpatient new 30 minutes Reid Crespo MD Work Phone: [facility] [place] Comment on above: Anal fistula (Primar y Dx) Start: 04-22-2024 End: 04-22-2024 ambulatory REID CRESPO [facility] Start: 05-21-2023 End: 05-21-2023 Office outpatient visit 25 minutes Simi Louis MD Work Phone: [facility] Start: 05-21-2023 End: 05-21-2023 Patient encounter status Simi Louis MD Work Phone: [facility] Work Phone: Start: 05-21-2023 Review Simi Singh Work Phone: [facility] Start: 11-28-2022 End: 11-28-2022 ambulatory [facility] Work Phone: Start: 11-28-2022 End: 11-28-2022 Discharged Recurring [facility]-Physical Therapy Work Phone: Start: 11-27-2022 ambulatory Simi Louis MD [facility] Internal [facility] Start: 11-27-2022 End: 12-13-2022 Office outpatient visit 40 minutes Simi Louis MD Work Phone: [facility] Start: 11-27-2022 End: 12-13-2022 Patient encounter status Simi Louis MD Work Phone: [facility] Work Phone: Start: 11-27-2022 Patient encounter status Simi Louis MD Work Phone: [facility] Start: 11-27-2022 Review Simi Singh Work Phone: [facility] Start: 09-12-2022 Non-patient / Non-visit Dr. Kylie Araiza Work Phone: [facility] Start: 09-12-2022 End: 09-12-[address] David Araiza Work Phone: [facility] Work Phone: Start: 09-12-2022 End: 09-12-[address] David Araiza Work Phone: [facility] Start: 09-07-2022 End: 09-07-2022 Phone Encounter Simi Louis MD Work Phone: [facility] Start: 09-03-2022 End: 09-03-2022 Prescription Refill Simi Louis MD Work Phone: [facility] Start: 08-28-2022 End: 08-28-2022 Patient encounter procedure Simi Louis MD Work Phone: [facility] Start: 08-28-2022 End: 08-28-2022 Patient encounter status Rossi Asif [place] [facility] Work Phone: Start: 08-28-2022 Review Simi Singh Work Phone: [facility] Start: 08-16-2022 End: 08-15-2022 Lab Order Simi Louis MD Work Phone: [facility] Start: 08-13-2022 End: 08-13-2022 Phone Encounter Simi Louis MD Work Phone: [facility] Start: 07-27-2022 End: 07-27-2022 Office outpatient visit 10 minutes Simi Louis MD Work Phone: [facility] Start: 09-01-2021 End: 09-01-2021 Discharged Recurring [facility]-Physical Therapy Start: 09-01-2021 End: 09-01-2021 Patient encounter procedure [facility]-Laboratory, [facility] Procedures Date Procedure Procedure Detail Performing Clinician Start: 12-24-2024 X-ray of chest posteroanterior view Dr. Simi Louis MD Work Phone: Start: 09-12-2022 End: 09-12-[address] Procedure Note: See Note; NOTES: [facility] Imaging Services [address] [place] [address] 09/12/22 1656 MR#: [id number] Acct: [id number] Name: FLOWERREID ANDREA Rep #: [id number] : 1955 67 From: Donnie Kim MD PCP: Dr. David Araiza MD Status:REG CLI Y Location: CT Calcium Scoring Date of Study:: 09/12/22 Indications Indications: High risk factors Coronary Calcium Scoring: High-resolution Computed Tomographic imaging of the chest was performed on [09/12/2022], with particular attention paid to the coronary arteries. Images from the examination were analyzed for the presence and extent of coronary artery calcification , using coronary calcium quantification software. The patient tolerated the procedure well and there were no complications. The results of the coronary calcification analysis are provided below. Findings Coronary Artery Left Main (LM): 0 Left Anterior Descending (LAD): 8 Left Circumflex (LCX): 152 Right Coronary Artery (RCA): 47 Total Agatston Score: 207 Percentile Rankin% to 75th percentile Calcium Scoring Interpretation: Different methods to categorize the overall amount of coronary plaque. Overall amount CAC SIS Visual of coronary plaque P1 Mild -100 <2 1-2 vessels with mild amount of plaque P2 Moderate 101-300 3-4 1-2 vessels with moderate amount, 3 vessels with mild amount of plaque P3 Severe 301-999 5-7 3 vessels with moderate amount, 1 vessel with severe amount of plaque P4 Extensive >1000 >8 2-3 vessels with severe amount of plaque Calcium Score: Moderate: 1-2 vessels w/moderate amt, 3 vessels w/mild amt of plaque Conclusion: Moderate nonobstructive plaque noted 09/12/22 1658 <Electronically signed by Donnie Kim MD> Date Donnie Kim MD Cosigner Signature (if applicable): Date CC: Dr. Simi Louis MD; Dr. David Araiza MD Signed Simi Louis MD Work Phone: Start: 09-12-2022 CT angiography of coronary arteries Dr. David Araiza Work Phone: Start: 09-12-[address] David rodgers Work Phone: Start: 09-12-2022 End: 09-15-[address] Lung Screening Procedure Note: See Note; NOTES: [facility] Imaging Services [address] [place] [address] Lung Screening MR#: [id number] Acct: [id number] Name: REID CRENSHAW Rep #: [id number] : 1955 M 67 From: Michele cardona MD PCP: Dr. David Araiza MD Status: [facility] CLI Study: Low Dose CT Lung Screening Date of Exam: 09/12 Exam# [id number] Ordering Dr: Simi Louis MD STUDY: LOW DOSE CT LUNG CANCER SCREENING REASON FOR EXAM: Male, 67 years old. SMOKER. Patient smoked 3 packs per day for 25 years. RADIATION DOSAGE (If Supplied By Facility): CTDIvol = ( 3.02 ) mGy, DLP = ( 313.18 ) mGycm TECHNIQUE: No contrast was administered. Low dose technique was utilized (average mAS-38 and kVp 120). 1.25 mm axial source images with a slice interval of 1.25-mm were reconstructed in lung windows. 2.5 mm axial source images with a slice interval of 2.5-mm were reconstructed in lung windows. 5.0 mm axial source images with a slice interval of 5.0-mm were reconstructed in soft tissue windows. COMPARISON: Comparison is made with prior study dated 03/09/2021. NODULES: No suspicious nodules are seen. Emphysema: Hyperinflation. Mild degree of emphysematous changes. Endobronchial lesion: None Aorta: Atherosclerotic plaque formation of the aortic arch. CORONARY ARTERIES: Coronary artery calcification is seen. Heart: Unremarkable Pulmonary artery: Unremarkable Mediastinal nodes: Small mediastinal lymph nodes. Other chest and abdominal findings: CT/Low Dose CT Lung Screening IMPRESSION: Lung-RADS category 2 - Continue annual screening with LDCT in 12 months. IMPORTANT NOTES FOR USE: ACR Lung-RADS Version 1.1 Assessment Categories Release Date: 2018 Category: Coded 0-4 bases on nodule(s) with highest degree of suspicion. Negative screen is defined as categories 1 and 2; a positive screen is defined as categories 3 and 4. Category 3 and 4A nodules that are unchanged on interval CT should be coded as category 2, and individuals returned to screening in 12 months. Category 4X: Category 3 or 4 nodules with additional imaging findings that increase the suspicion of lung cancer, such as spiculation, GGN that doubles in size in 1 year, enlarged lymph notes, etc. Category Modifiers: S (significant finding unrelated to lung cancer) Electronically Signed: Michele Kenney MD at 14:58 EST , CC: Dr. Simi Louis MD; Dr. David Araiza MD [facility] Internship: Signed Simi Louis MD Work Phone: Start: 09-20-2021 End: 09-20-2021 BP scrn no perf at interval Alex Baltazar Mitalvin PA-C Work Phone: Start: 09-20-2021 End: 09-20-2021 Calc BMI out nrm sky nof/u Alex Baltazar Mitan PA-C Work Phone: Start: 09-20-2021 End: 09-20-2021 Current tobacco non-user cad cap copd pv dm Alex Baltazar Mitan PA-C Work Phone: Start: 09-20-2021 End: 09-20-2021 Docrev cur meds by makayla Baltazar Mitan PA-C Work Phone: Start: 09-20-2021 End: 09-20-2021 Pain doc pos and plan Alex Baltazar Mitan PA-C Work Phone: Start: 09-20-2021 End: 09-20-2021 Patient encounter procedure Alex Rosario PA-C Work Phone: Start: 09-20-2021 End: 09-20-2021 Radiologic examination pelvis 1/2 views Alex Rosario PA-C Work Phone: left NELLA 11-21 Simi Warren i, MD Work Phone: left NELLA 11-21 Rossisalma Asif AIX ADMINISTRATOR right NELLA 2-23 Simi Warren i, MD Work Phone: right NELLA 2-23 Rossisalma Reeseman AIX ADMINISTRATOR NEGATED: Highlighted rowStart: 09-20-2021 End: 09-20-2021 Documentation of current medications Ida Henry Plan of Treatment Date Care Activity Detail Author Start: 10-05-2027 DTaP/Tdap/Td Vaccine s (2 - Td or Tdap) DTaP/Tdap/Td Vaccines (2 - Td or Tdap) [facility] Start: 12-24-2024 [facility] Start: 04-05-2024 COVID-19 Vaccine ( season) COVID-19 Vaccine ( season) [facility] Start: 04-05-2024 Influenza vaccination Influenza Vacc ine (#1) [facility] Start: 05-21-2023 Procedure Education Eprescribe d prescriptions (G8553) [facility] Work Phone: Start: 11-27-2022 Procedure Education Eprescribe d prescriptions (G8553) [facility] Work Phone: Start: 11-27-2022 Lipid panel LIPID PANEL (91110) [facility] Work Phone: Start: 11-27-2022 Comprehensive metabo lic panel METABOLIC PANEL, COMPREHENSIVE (98589) [facility] Work Phone: Start: 11-27-2022 Blood count manual c ell count each CBC with auto diff (65166) [facility] Work Phone: Start: 08-28-2022 Hepatic function panel HEPATIC FUNCTION PANEL (28313) [facility] Work Phone: Comment on above: in three months (tanesha roximately) Start: 08-28-2022 Lipid panel LIPID PANEL (09146) [facility] Work Phone: Comment on above: in three months (tanesha roximately) Start: 08-28-2022 Procedure Education Eprescribe d prescriptions (G8553) [facility]; [facility] Work Phone: Start: 08-28-2022 Hepatitis c antibody HEPATITIS C ANTIBODY (56131) [facility]; [facility] Work Phone: Start: 08-28-2022 C-reactive protein h igh sensitivity C-REACT PROT HIGH SENS(hsCRP) (97877) [facility]; [facility] Work Phone: Start: 08-28-2022 Lactate dehydrogenas e ldh LDH (LD) (LACTATE DEHYDROGENASE) (20860) [facility] Work Phone: Start: 08-28-2022 Blood smear peripher al interp phys w/writ report BLOOD SMEAR INTERPRETATION (29808) [facility] Work Phone: Start: 08-28-2022 Blood count complete auto&auto difrntl wbc CBC, PLATELETS & AUT DIFF (64283) [facility] Work Phone: Start: 06-20-2022 End: 06-20-2022 Patient encounter procedure Appointment [facility] Work Phone: Start: 09-20-2021 End: 09-20-2021 Patient encounter procedure Appointment [facility] Work Phone: Start: 08-25-2020 Pneumococcal Vaccine : 65+ Years (2 of 2 - PCV) Pneumococcal Vaccine: 65+ Years (2 of 2 - PCV) [facility] Start: 2003 Zoster Vaccines (1 o f 2) Zoster Vaccines (1 of 2) [facility] Start: 1971 Diabetes mellitus screening Diabetes Screening [facility] Start: 1971 Hepatitis C screening Hepatitis C Sc reening [facility] Start: 1965 Depression Screening Depression Scre ening [facility] Start: 1955 Lipid panel Lipid Panel [place] Start: 1955 Medicare Annual Wellness (AWV) Medicare Annual Wellness (AWV) [facility] Start: 1955 Screening for malign ant neoplasm of colon [facility] Patient Education [facility] Work Phone: Patient referral [facility] Work Phone: [facility] Work Phone: [facility] Work Phone: Immunizations Immunization Date Immunization Notes Care Provider [facility] 05-21-2023 influenza, injectabl e, quadrivalent, contains preservative Simi Louis MD Work Phone: [facility]; [facility] Work Phone: Comment on above: Site: Right Arm InfluenzaFlulaval pr efilled syringe 0.5ml Lot: [id number]: 02/02/[facility]23 influenza virus vacc ine, unspecified formulation Reid Crespo MD Work Phone: [facility] 10-27-2020 Covid (Pfizer) [facility] 10-06-2020 Covid (Pfizer) [facility] Payers Date Payer Category Payer Self-pay [id number] 2022 Private Health Insurance [employer] A ETNA SENIOR SUPPLEMENT [id number] 2022-Present [address] [address] [place] [address] Supplement [id number] 2022 Private Health Insurance CLI [id number] 2018 Medicare MEDICARE MEDICAR E PART A AND B [id number] 2018-Present [address] [place] [address] Medicare [id number] 2018 Medicare [id number] 1955 Unknown [id number] Unknown [id number] Unknown [id number] Unknown Unknown [facility] PACKAGE PLAN [id number] Unknown [id number] Unknown [id number] Unknown [id number] Unknown [id number] Social History Date Type Detail Facility Start: 09-12-2022 End: 09-12-2022 Assertion Unknown if ever smoked [facility] Work Phone: Start: 1955 Sex Assigned At Male [facility] Alcohol Use Alcohol Use [facility] Work Phone: Comment on above: 5 beers a day no oth er etoh, CAGE negative, month without and not shakes, no DUI. quit in 1999 heavy Start: 04-22-2024 End: 12-24-2024 Tobacco smoking status DEIS Ex-smoker [facility] History of tobacco use Current smoker [facility] History of tobacco use Cigarette Smoker [facility] Start: 04-22-2024 Tobacco use and exposure Smokeless tobacco non-user [facility] Start: 04-22-2024 Alcoholic beverage intake Current drinker of alcohol (finding) [facility] Start: 1955 Sex assigned at Not on file [facility] Gender identity Not on file [facility] Start: 11-23-2024 Sex Male (finding) [facility] Mental Status Date Assessment Result Facility 09-12-2022 Cognitive function Voice/Name [facility] Work Phone: Clinical Notes 02-18-2023 to 12-24-2024 Reid Crespo MD - 04/22/2024 10:15 AM EDT Note Date & Type Note Facility 12-24-2024 Radiology Diagnostic study note [facility] Imaging Services [address] [place] [address] Ribs Uni Min 3V w/PA Chest MR#: [id number] Acct: [id number] Name: REID CRENSHAW Rep #: [id number] : 1955 M 69 From: Jared Aragon MD PCP: Dr. Simi Louis MD Status: REG E R Study:Ribs Uni Min 3V w/PA Chest Date of Exam : 12/24/24 Exam# [id number] Ordering Dr: Alvaro Hairston DO PROCEDURE: RIBS UNI MIN 3V W/PA CHEST 12/24/2024 REASON FOR EXAM: PAIN TECHNIQUE: PA chest and four views of the left ribs, 5 total images COMPARISON: None available FINDINGS: The lungs appear clear. No pneumothorax or pleural effusion identified. The cardiac and mediastinal contours appear within limits. Atherosclerotic change at the aortic arch noted. The ribs appear within limits. No fracture identified. RAD/Ribs Uni Min 3V w/PA Chest IMPRESSION: No evidence of acute process as above. Reading Location: [id number] CC: Dr. Simi Louis MD; Dr. Alvaro Hairston DO ~ [facility] Internship: Signed [facility] 11-18-2024 Procedure note [facility] 04-22-2024 History of Present illness Narrative Formatting of this note is different fro m the original. @ASSESSMENTBEGINPHANTOM@ Assessment: Diagnosis Plan 1. Anal fistula @PLANBEGINPHANTOM@ Plan: No further workup or treatment as agreed with above discussion Follow up prn Objective History: Reid Crenshaw is a 68 y.o. male who presents today for evaluation of a presumed anal fistula. The patient notices intermittent tenderness and drainage from an area in the right anterior quadrant. He had drainage of a very large perianal abscess about 20 years ago in the area. He says it never healed quite properly. Intermittently, it will be uncomfortable and drain and milky fluid. Recently, it has begun to bleed as well as have this drainage. He is able to live with the symptoms, but he is concerned whether or not the bleeding represents something dangerous. Office exam does not clearly demonstrate a fistula, but all of the findings and certainly the history are consistent with this and this is the presumed diagnosis although it is not proven. The patient is told the bleeding from the fistula tract is not in and of itself a dangerous thing. He is much relieved by this. He is current on colonoscopy. Options include a rectal exam under anesthesia where an attempt would be made to find the fistula. This may or may not be successful. The second option would be for the patient to contact the office if the fistula is actively draining, and we would work him in and see him and attempted demonstrate this for certain. The third approach would be to just wait and see what happens. The patient states that he was mainly interested in whether or not the bleeding was a dangerous thing. He is not interested in any of the other options. If he changes his mind he can contact the office or if his symptoms get worse. All of his questions were answered and he shows good understanding. The patient is seen in the office today with Irma Richey CMA. Physical Exam: @VSAMB@ Physical Exam Constitutional: General: He is not in acute distress. Appearance: He is not ill-appearing, toxic-appearing or diaphoretic. HENT: Head: Normocephalic. Nose: Nose normal. Eyes: General: No scleral icterus. Conjunctiva/sclera: Conjunctivae normal. Cardiovascular: Rate and Rhythm: Normal rate. Pulmonary: Effort: Pulmonary effort is normal. No respiratory distress. Breath sounds: No stridor. Abdominal: General: Abdomen is flat. There is no distension. Genitourinary: Comments: Complete office anorectal exam is performed today including external inspection, digital exam, and anoscopy. The patient has minor internal hemorrhoidal disease with his largest being in the right posterior quadrant. This is perhaps a grade 2 hemorrhoid. He has no external hemorrhoids. Sphincter tone is adequate. There are no masses. There is no Crohn's. 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 An internal opening is not noted on exam. Probing of the presumed tract was attempted but not possible. It was not clearly demonstrated that this was a fistula. There is no abscess or cellulitis. Skin: General: Skin is warm and dry. Coloration: Skin is not jaundiced. Neurological: Mental Status: He is alert and oriented to person, place, and time. Mental status is at baseline. Psychiatric: Mood and Affect: Mood normal. Behavior: Behavior normal. Thought Content: Thought content normal. Judgment: Judgment normal. ROS: Review of Systems as recordedby the medical billing associate has been reviewed by me, and I agree except as noted inthe HPI. Past Medical History: Diagnosis Date Hyperlipidemia Hypertension Past Surgical History: Procedure Laterality Date ABSCESS DRAINAGE perirectal COLONOSCOPY HIP SURGERY Bilateral TONSILLECTOMY @[facility]@ Social History Socioeconomic History Marital status: Spouse name: Not on file Number of children: Not on file Years of education: Not on file Highest education level: Not on file Occupational History Not on file Tobacco Use Smoking status: Former Types: Cigarettes Smokeless tobacco: Never Substance and Sexual Activity Alcohol use: Yes Drug use: Never Sexual activity: Not on file Other Topics Concern Not on file Social History Narrative Not on file Social Determinants of Health Financial Resource Strain: Not on file Food Insecurity: Not on file Transportation Needs: Not on file Physical Activity: Not on file Stress: Not on file Social Connections: Not on file Intimate Partner Violence: Not on file Housing Stability: Not on file No family history on file. Allergies: No Known Allergies PCP: SIMI LOUIS MD Electronically signedby Reid Crespo MD on 04/23/2024 at 12:55 PM. documented in this encounter [facility] 02-18-2023 Discharge summary Note Date/Time February 18, 2023 12:26pm [facility] [address] [place] [address]. [address] [place] [address] / REHABILITATION SERVICES DISCHARGE SUMMARY MR#: [id number] Acct: [id number] Name: REID CRENSHAW Rep #: [id number] : [id number] 67 From: Suzy Boyd Referring Dr.: Dr. Matt Short MD Status: REG RCR Insurance: MEDICARE PART A B [employer] SR SUPPLEMENT INS Discharge Summary D/C summary: It has been my pleasure to treat REID CRENSHAW referred by Dr. Matt Short MD, with the diagnosis of Anterior Approach THR 09/25/22 Right for a total of 18 visit(s). Discharge Date: Please see the following information for a summary of their discharge status. Subjective Subjective: Patient is coming off a 30 min session with MANAGER RADIO- she reports that she added stick roll out today due to some stiffness/soreness. Patient reports that some days are better than others. When he does something stupid like work outside it sets him back. Fully I with all ADL's- he is able to mow on the sitting mower which vibrates it up and he plans to use a pillow and weed wacked a big long fence line and got under a sink to fix a faucet and that made him sore. Worst in the last couple of days 10/12- he does have pain free moments when he is sitting. Most of his pain is when he is first getting up. He is walking without a cane but does sometimes take it with him. He feels that he would like to do some home exercises for a few weeks. Pain Right Hip: Pain Intensity (Out of 10): 0 Overall Improvement % Improvement: 90 Objective Objective/Function: (THR Right 09/21/22) Posture: FH, RS- can correct with verbal cues but does not maintain. Gait: slightly antalgic- decreased stance on the right LE with foot flat contact- when given verbal cues his gait pattern is much smoother- but reverts back to smaller stride without cues SLS: 5-8 seconds does not trust the right LE (encouraged to incorporate into hisADL's.). HR/TR: able with UE A. ROM: WFL in all planes Strength: Core: fair, Hip: Flexion: 25 , Extn: 50 lbs, Abd/Add: 4+/5, Knee: 4+/5, Ankle: 5/5. Flex: HS: moderate Gastroc: moderate Stairs: asc.desc 8 recip with 1 HR- does have decreased control with descent and uses a jump through pattern for asc Goals Goal 1:: Patient will be I with HEP and progression Goal Progress: Progressing Goal 2:: Patient will ambulate >300 feet with a normalized gait pattern with no AD Goal Progress: Progressing Goal 3:: Patient will asc/desc 8 stairs recip with 1 HR Goal Progress: Progressing Goal 4:: Patient will perform TUG in under 10 sec with LRD Goal Progress: Progressing Goal 5:: Patient will report 80% improvement Goal Progress: Progressing Plan Plan: 11/28/22: Hold 4 weeks- PT encouraged compliance with HEP and PT- pt wants to see surgeon and do HEP at home gym- will follow up as needed- if we don't hear from him in 4 weeks d.c- if he does decide PT is 2x a week for 6 weeks 11/07/22: lateral steps at counter top 10/31/22: Continue 2x a week for 4 weeks 09/21/22 Right THR HEP Given IE: HR/TR, weight shift, quad set, A SLR D/C Information d/c sentence: If there are questions or concerns regarding this patient's physical therapy, please feel free to call me at [phone]. Thank you for the referral of thispatient. Sincerely, Suzy Pinon, DPT Balance/Gait/Functional tests Balance/Special Test Scores TUG Test Time Seconds: 9.82 Tug Test: <10 sec.=free mobile WOMAC Total Score: 28 WOMAC Percentage: 70.8400 <Electronically signed by Szuy Pinon DPT> 02/18/23 1226 CC: Dr. Matt Short MD; Dr. David Araiza MD ~ ELR Signed [facility] Work Phone: Evaluation noteThere may be information available, but it has not been provided by the sender.[facility] Work Phone: Evaluation noteNo assessment information available [facility] Work Phone: Evaluation note* Diagnosis Anal fistula- Primary [facility] Description Start Date Completed [facility] Work Phone: Instructions* Name Dates Details Patient Instructions Indication:BMI 28.0-28.9,adult Start:28-Aug-2022 Instruction Type:Provider Instructions for Treatment How to Access Health Informa tion Online using Patient Portal and 3rd [employer] Apps Indication:BMI 28.0-28.9,adult Start:28-Aug-2022 Instruction Type:Patient Education [facility] Work Phone: instructions* Name Dates Details Patient Instructions Indication:BMI 28.0-28.9,adult Start:28-Aug-2022 Instruction Type:Provider Instructions for Treatment How to Access Health Informa tion Online using Patient Portal and 3rd [employer] Apps Indication:BMI 28.0-28.9,adult Start:28-Aug-2022 Instruction Type:Patient Education [facility]; [facility] Work Phone: instructions* Name Dates Details Patient Instructions Indication:BMI 28.0-28.9,adult Start:28-Aug-2022 Instruction Type:Provider Instructions for Treatment How to Access Health Informa tion Online using Patient Portal and 3rd [employer] Apps Indication:BMI 28.0-28.9,adult Start:28-Aug-2022 Instruction Type:Patient Education [facility]; [facility] Work Phone: instructions* Name Dates Details Patient Instructions Indication:BMI 28.0-28.9,adult Start:28-Aug-2022 Instruction Type:Provider Instructions for Treatment How to Access Health Informa tion Online using Patient Portal and 3rd [employer] Apps Indication:BMI 28.0-28.9,adult Start:28-Aug-2022 Instruction Type:Patient Education [facility]; [facility] Work Phone: instructions* Name Dates Details Patient Instructions Indication:BMI 28.0-28.9,adult Start:28-Aug-2022 Instruction Type:Provider Instructions for Treatment How to Access Health Informa tion Online using Patient Portal and 3rd [employer] Apps Indication:BMI 28.0-28.9,adult Start:28-Aug-2022 Instruction Type:Patient Education [facility]; [facility] Work Phone: instructions* Name Dates Details Patient Instructions Indication:BMI 28.0-28.9,adult Start:27-Nov-2022 Instruction Type:Provider Instructions for Treatment How to Access Health Informa tion Online using Patient Portal and 3rd [employer] Apps Indication:BMI 28.0-28.9,adult Start:27-Nov-2022 Instruction Type:Patient Education Patient Instructions Indication:BMI 28.0-28.9,adult Start:28-Aug-2022 Instruction Type:Provider Instructions for Treatment How to Access Health Informa tion Online using Patient Portal and 3rd [employer] Apps Indication:BMI 28.0-28.9,adult Start:28-Aug-2022 Instruction Type:Patient Education [facility]; [facility] Work Phone: instructions* Name Dates Details Patient Instructions Indication:BMI 28.0-28.9,adult Start:27-Nov-2022 Instruction Type:Provider Instructions for Treatment How to Access Health Informa tion Online using Patient Portal and 3rd [employer] Apps Indication:BMI 28.0-28.9,adult Start:27-Nov-2022 Instruction Type:Patient Education Patient Instructions Indication:BMI 28.0-28.9,adult Start:28-Aug-2022 Instruction Type:Provider Instructions for Treatment How to Access Health Informa tion Online using Patient Portal and 3rd [employer] Apps Indication:BMI 28.0-28.9,adult Start:28-Aug-2022 Instruction Type:Patient Education [facility]; [facility] Work Phone: instructions* Name Dates Details Patient Instructions Indication:Tobacco abuse, in remission (Renamed from Tobacco dependence in remission) Start:21-May-2023 Instruction Type:Provider Instructions for Treatment How to Access Health Informa tion Online using Patient Portal and 3rd [employer] Apps Indication:Tobacco abuse, in remission (Renamed from Tobacco dependence in remission) Start:21-May-2023 Instruction Type:Patient Education Patient Instructions Indication:BMI 28.0-28.9,adult Start:27-Nov-2022 Instruction Type:Provider Instructions for Treatment How to Access Health Informa tion Online using Patient Portal and 3rd [employer] Apps Indication:BMI 28.0-28.9,adult Start:27-Nov-2022 Instruction Type:Patient Education Patient Instructions Indication:BMI 28.0-28.9,adult Start:28-Aug-2022 Instruction Type:Provider Instructions for Treatment How to Access Health Informa tion Online using Patient Portal and 3rd [employer] Apps Indication:BMI 28.0-28.9,adult Start:28-Aug-2022 Instruction Type:Patient Education [facility]; [facility] Work Phone: Instructions* Name Dates Details Patient Instructions Indication:Tobacco abuse, in remission (Renamed from Tobacco dependence in remission) Start:21-May-2023 Instruction Type:Provider Instructions for Treatment How to Access Health Informa tion Online using Patient Portal and 3rd [employer] Apps Indication:Tobacco abuse, in remission (Renamed from Tobacco dependence in remission) Start:21-May-2023 Instruction Type:Patient Education Patient Instructions Indication:BMI 28.0-28.9,adult Start:27-Nov-2022 Instruction Type:Provider Instructions for Treatment How to Access Health Informa tion Online using Patient Portal and 3rd [employer] Apps Indication:BMI 28.0-28.9,adult Start:27-Nov-2022 Instruction Type:Patient Education Patient Instructions Indication:BMI 28.0-28.9,adult Start:28-Aug-2022 Instruction Type:Provider Instructions for Treatment How to Access Health Informa tion Online using Patient Portal and 3rd [employer] Apps Indication:BMI 28.0-28.9,adult Start:28-Aug-2022 Instruction Type:Patient Education [facility]; [facility] Work Phone: reason for referral (narrative)No reason for referral information availableWMagruder Hospital Work Phone: Chief Complaint Chief Complaint Description Start Date left hip post Left total hip arthroplasty using a direct anterior approach on 06/23/2021 Preliminary chief co mplaint data, not yet signed by the author as of Advance Directives No Advanced Directives Records Found Name Dates Details Immunization Registry May - Effective on 05/21/2023. Expiration date unspecified Effective:21-May-2023 Name Dates Details Immunization Registry May - Effective on 05/21/2023. Expiration date unspecified Effective:21-May-2023 Advance Directive Response Recorded Date/ Time Do you have a Healthcare Power of Frame Table Operator Helper? No December 24, 2024 1:53am Family History No Family History Records FoundUnknown Family Member Name Dates Details Brother 1 Comments:melanoma, Status:Active Brother 2 Comments:half, younger, hear t disease ? type may be rhythym Status:Active Brother 3 Comments:half Status:Active Father Comments:Parkinson's in 90's , melanoma Status:Active Maternal Grandmother Comments: alzheimers--9 of her siblings had alzheimers Status:Active Mother Comments:COPD s/p hip f racture at 80's, smoker, started with CAD in 60's Status:Active no children Status:Active Sister 1 Comments:year older, dementi a Status:Active Unknown Family Member Name Dates Details Brother 1 Comments:melanoma, Status:Active Brother 2 Comments:half, younger, hear t disease ? type may be rhythym Status:Active Brother 3 Comments:half Status:Active Father Comments:Parkinson's in 90's , melanoma Status:Active Maternal Grandmother Comments: alzheimers--9 of her siblings had alzheimers Status:Active Mother Comments:COPD s/p hip f racture at 80's, smoker, started with CAD in 60's Status:Active no children Status:Active Sister 1 Comments:year older, dementi a Status:Active Unknown Family Member Name Dates Details Brother 1 Comments:melanoma, Status:Active Brother 2 Comments:half, younger, hear t disease ? type may be rhythym Status:Active Brother 3 Comments:half Status:Active Father Comments:Parkinson's in 90's , melanoma Status:Active Maternal Grandmother Comments: alzheimers--9 of her siblings had alzheimers Status:Active Mother Comments:COPD s/p hip f racture at 80's, smoker, started with CAD in 60's Status:Active no children Status:Active Sister 1 Comments:year older, dementi a Status:Active Unknown Family Member Name Dates Details Brother 1 Comments:melanoma, Status:Active Brother 2 Comments:half, younger, hear t disease ? type may be rhythym Status:Active Brother 3 Comments:half Status:Active Father Comments:Parkinson's in 90's , melanoma Status:Active Maternal Grandmother Comments: alzheimers--9 of her siblings had alzheimers Status:Active Mother Comments:COPD s/p hip f racture at 80's, smoker, started with CAD in 60's Status:Active no children Status:Active Sister 1 Comments:year older, dementi a Status:Active Unknown Family Member Name Dates Details Brother 1 Comments:melanoma, Status:Active Brother 2 Comments:half, younger, hear t disease ? type may be rhythym Status:Active Brother 3 Comments:half Status:Active Father Comments:Parkinson's in 90's , melanoma Status:Active Maternal Grandmother Comments: alzheimers--9 of her siblings had alzheimers Status:Active Mother Comments:COPD s/p hip f racture at 80's, smoker, started with CAD in 60's Status:Active no children Status:Active Sister 1 Comments:year older, dementi a Status:Active Unknown Family Member Name Dates Details Brother 1 Comments:melanoma, Status:Active Brother 2 Comments:half, younger, hear t disease ? type may be rhythym Status:Active Brother 3 Comments:half Status:Active Father Comments:Parkinson's in 90's , melanoma Status:Active Maternal Grandmother Comments: alzheimers--9 of her siblings had alzheimers Status:Active Mother Comments:COPD s/p hip f racture at 80's, smoker, started with CAD in 60's Status:Active no children Status:Active Sister 1 Comments:year older, dementi a Status:Active Unknown Family Member Name Dates Details Brother 1 Comments:melanoma, Status:Active Brother 2 Comments:half, younger, hear t disease ? type may be rhythym Status:Active Brother 3 Comments:half Status:Active Father Comments:Parkinson's in 90's , melanoma Status:Active Maternal Grandmother Comments: alzheimers--9 of her siblings had alzheimers Status:Active Mother Comments:COPD s/p hip f racture at 80's, smoker, started with CAD in 60's Status:Active no children Status:Active Sister 1 Comments:year older, dementi a Status:Active Unknown Family Member Name Dates Details Brother 1 Comments:melanoma, Status:Active Brother 2 Comments:half, younger, hear t disease ? type may be rhythym Status:Active Brother 3 Comments:half Status:Active Father Comments:Parkinson's in 90's , melanoma Status:Active Maternal Grandmother Comments: alzheimers--9 of her siblings had alzheimers Status:Active Mother Comments:COPD s/p hip f racture at 80's, smoker, started with CAD in 60's Status:Active no children Status:Active Sister 1 Comments:year older, dementi a Status:Active Unknown Family Member Name Dates Details Brother 1 Comments:melanoma, Status:Active Brother 2 Comments:half, younger, hear t disease ? type may be rhythym Status:Active Brother 3 Comments:half Status:Active Father Comments:Parkinson's in 90's , melanoma Status:Active Maternal Grandmother Comments: alzheimers--9 of her siblings had alzheimers Status:Active Mother Comments:COPD s/p hip f racture at 80's, smoker, started with CAD in 60's Status:Active no children Status:Active Sister 1 Comments:year older, dementi a Status:Active Chief Complaint and Reason for Visit Chief Complaint BILATERAL HIP PAIN. RX HERE Chief Complaint HYPERLIPIDEMIA, CAD; HX SMOKING >30 PK YRS HYPERLIPIDEMIA, CAD; HX SMOKING >30 PK YRS Chief Complaint TRH/DR TO FAX Chief Complaint Admit Date RUE; PARESTHESIA November 18, 2024 8:2 4am RUE; PARESTHESIA November 18, 2024 1:3 7pm Chief Complaint Admit Date RUE; PARESTHESIA November 18, 2024 8:2 4am RUE; PARESTHESIA November 18, 2024 1:3 7pm rib pain December 24, 2024 1:47a m Summary Purpose Additional Source Comments Reason for Visit (unrecogniz ed section and content) Reason For Visit Description Postop - subsequent visit Preliminary reason f or visit data, not yet signed by the author as of left hip post Left total hip arthroplasty using a direct anterior approach on 06/23/2021 Reason Comments New Patient evaluation for fistu la, builds up then drain a bloody type drainage,denies pain/fevers/trouble with urniation/BM, hx of fistula for [address] Lackey Pt unaccompanied Goals (unrecognized section and content) Goals may be documented in a n alternate sectionGoals may be documented in an alternate sectionGoals may be documented in an alternate sectionGoals may be documented in an alternate sectionGoals may be documented in an alternate section Care Teams (unrecognized sec tion and content) Team Status: Active Member Role Status Dates Dr. David Araiza MD Family Provider Active Dr. David Araiza MD Primary Care Provider Active Team Status: Active Member Role Status Dates Dr. David Araiza MD Primary Care Provider Active Dr. Simi Louis MD Referring Provider, Other Provid er Active Dr. Donnie Kim MD Attending Provider Active Team Status: Inactive Member Role Status Dates Dr. David Araiza MD Primary Care Provider Active Dr. Simi Louis MD Attending Provider, Referring Pr ovider Active Team Status: Inactive Member Role Status Dates Dr. David Araiza MD Primary Care Provider Active Dr. Matt Short MD Attending Provider, Referring Provider Active Net Technical Architect Relationship Specialty Start Date End Date Simi Louis MD [address] [facility] [address] [place] [id number] PCP - General Internal Medicine 04/22/24 Team Status: Active Member Role Status Dates Dr. Simi Louis MD Primary Care Provider Active Team Status: Inactive Member Role Status Dates Dr. Simi Louis MD Primary Care Provider Active Start: November 18, 2024 End: November 18, 2024 Dr. Simi Louis MD Attending Provider Active Start: November 18, 2024 End: November 18, 2024 Dr. Simi Louis MD Referring Provider Active Start: November 18, 2024 End: November 18, 2024 Team Status: Active Member Role Status Dates Dr. Simi Louis MD Primary Care Provider Active Start: November 18, 2024 Dr. Simi Louis MD Referring Provider Active Start: November 18, 2024 Dr. Simi Louis MD Other Provider Active Star t: November 18, 2024 Dr. Jose Martin Nicolas MD Attending Provider Active S tart: November 18, 2024 Team Status: Inactive Member Role Status Dates Dr. Simi Louis MD Primary Care Provider Active Start: December 24, 2024 End: December 24, 2024 Dr. Alvaro Hairston , DO Emergency Provider Active Start: December 24, 2024 End: December 24, 2024 (unrecognized sect ion and content) No Status Records FoundNo Status Records FoundNo Status Records Found INFORMATION SOURCE (unrecogn ized section and content) DATE CREATED AUTHOR 11/28/2022 [facility] DATE CREATED AUTHOR AUTHOR'S ORGANIZ ATION 04/24/2024 [facility] DATE CREATED AUTHOR AUTHOR'S ORGANIZ ATION 03/05/2025 [facility] FOR RECORDS PERTAINING TO PATIENTS WHO ARE OR HAVE BEEN ENROLLED IN A CHEMICAL DEPENDENCY/SUBSTANCEABUSE PROGRAM, SOME INFORMATION MAY BE OMITTED. This clinical summary was aggregated from multiple sources. Caution should be exercised in using it in the provision of clinical care. This summary normalizes information from multiple sources, and as a consequence, information in this document may materially change the coding, format and clinical context of patient data. In addition, data may be omitted in some cases. CLINICAL DECISIONS SHOULD BE BASED ON THE PRIMARY CLINICAL RECORDS. [employer] provides no warranty or guarantee of the accuracy or completeness of information in this document.
== END | disposition home or self-care (01) ==
LOC: US 09:43
PROVIDERS: PCP Internal Medicine; Referring Provider Internal Medicine; Visit Provider Internal Medicine
DX: K70.2 Alcoholic fibrosis and sclerosis of liver (principal)
CPT/HCPCS: 76705; 76981

== ENCOUNTER → 2025-06-14 | Outpatient (CLI) | payer MEDICARE, OTHER, SELFPAY ==
[2025-06-14 10:44] LABS: Squamous Epithelial Cells - UA 0 SEEN /hpf (0-5)
[2025-06-14 12:05] LABS: Color, Urine Yellow (Yellow); Glucose, Dipstick Normal (Normal); Hematocrit 44.4 % (40-54); Hemoglobin 15.2 g/dL (13.0-16.5); Immature Granulocytes Count 0.050 X10^3/uL (0.0-0.0); Ketone-Dipstick 5 mg/dl (Negative); Leukocyte Esterase-Dipstick 25 /ul (Negative); Mean Corp Hgb Conc 34.2 g/dL (32-36); Mean Corpuscular Volume 97.4 fL (80-94); Mean Platelet Vol. 10.7 fl (6.2-12.0); NRBC Flagged by Analyzer 0 % (0-5); Nitrite-Dipstick Negative (Negative); Occult Blood-Urine 50 /ul (Negative); Platelet Count 147 K/mm3 (150-450); Protein-Dipstick 30 mg/dl (Negative); RBC Distribution Width CV 12.7 % (11.6-14.6); RBC Distribution Width SD 45.2 fl (35.1-43.9); Red Blood Count 4.56 M/mm3 (4.6-6.2); Specific Gravity, Urine 1.025 (1.002-1.030); Urine Bilirubin Dipstick Negative (Negative); White Blood Count 5.2 K/mm3 (4.4-11.0)
[2025-06-14 12:11] LABS: Mucous, Urine 2+ /hpf (<or=2+); Red Blood Cells-Urine 0-5 SEEN /hpf (0-5)
[2025-06-14 12:15] LABS: Prothrombin Time (Protime)PT. 13.7 SECONDS (11.7-14.9)
[2025-06-14 12:16] LABS: Partial Thromboplast Time 37.2 Seconds (24.1-36.2)
[2025-06-14 12:51] LABS: AST(SGOT) 26 U/L (<=37); Alanine Aminotransfer ALT/SGPT 30 U/L (<=46); Albumin, Serum 4.3 g/dL (3.4-4.8); Alkaline Phosphatase 147 U/L (40-129); Anion Gap 11 (5-15); BUN < 2 mg/dL (4-19); BUN/Creat Ratio UNABLE TO CALCULATE RATIO (10-20); Calcium,Total 9.1 mg/dL (7.6-11.0); Carbon Dioxide 24.5 mmol/L (21.0-32.0); Chloride 105 mmol/L (98-108); Globulin 1.6 g/dL (2.2-4.2); Glucose 106 mg/dL (70-99); Potassium 3.9 mmol/L (3.3-5.1)
[2025-06-14 12:55] LABS: Creatinine, Urine (random) 345.00 mg/dL (39.00-259.00); Microalbumin,Random Urine 34.7 mg/L (<20 mg/L)
[2025-06-15 17:08] LABS: PSA, Total 1.4 ng/mL (0.0-4.0)
== END | disposition home or self-care (01) ==
PROVIDERS: PCP Internal Medicine; Referring Provider Internal Medicine; Visit Provider Internal Medicine
DX: K70.2 Alcoholic fibrosis and sclerosis of liver (principal); I10 Essential (primary) hypertension; Z12.5 Encounter for screening for malignant neoplasm of prostate
CPT/HCPCS: 80053; 81001; 82043; 82105; 82570; 84153; 85025; 85610; 85730; 87077; 87086; 87088; 87186

== ENCOUNTER → 2025-07-30 | Outpatient (CLI) | payer MEDICARE, OTHER, SELFPAY ==
--- NOTE | 2025-07-30 13:44 | CT_ITS ---
PROCEDURE: LOW DOSE CT LUNG SCREENING 07/30/2025 REASON FOR EXAM: Lung screening. 30+ pack-year history. TECHNIQUE: Procedure Code: CTLUNGSCREEN Modality: CT Procedure: LOW DOSE CT LUNG SCREENING Coronal and Sagittal reconstruction series were provided. One or more dose reduction techniques were used (e.g., Automated exposure control, adjustment of the mA and/or kV according to patient size, use of iterative reconstruction technique). REFERENCE LINK: [employer] Lung-RADS RADIATION DOSE SUMMARY: DLP: 110 mGycm COMPARISON: None available FINDINGS: PULMONARY NODULES: (Only nodules >3mm are reported) Nodules described below are on series 2 unless otherwise specified. Pulmonary Nodules: Left lower lobe 4 mm pulmonary nodule (image 191). Right upper lobe 3.5 mm solid pulmonary nodule (image 73). Right upper lobe 4 mm solid pulmonary nodule (image 125). Right lower lobe 3 mm solid pulmonary nodule (image 151). Inferior right middle lobe 2.5 mm solid pulmonary nodule (image 215). Hardware:None. Lymph Nodes:No lymphadenopathy. Heart and Vasculature:The heart is normal in size.The main pulmonary artery and thoracic aorta are normal in caliber. Scattered atherosclerotic calcification of the thoracic aorta. Coronary Artery Calcifications: Present. Lungs and Airways: Centrilobular emphysema. Mild dependent atelectasis. The central airways are patent. Pleura:No pneumothorax or pleural effusion. Upper Abdomen:Unremarkable. Bones:No aggressive osseous lesion. Degenerative changes of the thoracic aorta. CT/Low Dose CT Lung Screening IMPRESSION: Multiple bilateral pulmonary nodules measuring up to 4 mm. Coronary artery calcification (CAC) is present. Lung-RADS Category: 2 BENIGN (BASED ON IMAGING FEATURES OR INDOLENT BEHAVIOR). RECOMMEND 12-MONTH SCREENING LDCT. Other Significant Findings: Pulmonary emphysema. Reading Location: [id number]
--- OUTSIDE RECORDS SUMMARY | 2025-07-30 13:59 | XMS RPT_ITS | CCD ---
Author Organization [facility] Care Team Providers Care Pull Worker Name Role Phone Alex Rosario PA-C Unavailable Simi Louis MD Unavailable Unavailable Unavailable Laya BENDER, Rossi Unavailable Unavailable Paulk MARCIA, Mary Unavailable Unavailable Dr. David Araiza Primary [...] Provider Dr. Simi Louis MD Other Provider Maria Isabel MENDIOLA, Dr. Philippe Attending Provider Dr. Alvaro Hairston DO Emergency Provider Dr. Alvaro Hairston DO Attending Provider Simi Louis Referring Unavailable Simi Louis Attending Unavailable Simi Louis Primary Care Unavailable Bonezzi, Simi Primary Care Unavailable Alvaro Hairston Attending Unavailable Bonezzi, Simi Primary Care Unavailable Bonezzi, Simi Referring Unavailable Bonezzi, Simi Attending Unavailable Bonezzi, Simi Referring Unavailable Jose Martin Nicolas Attending Unavailable Bonezzi, Simi Consulting Unavailable Bonezzi, Simi Primary Care Unavailable Bonezzi, Simi Primary Care Unavailable Bonezzi, Simi Referring Unavailable Boneadi, Simi Attending Unavailable Medications Current Medications Medication Drug Class(es) Dates Sig (Normalized) Sig (Original) acetaminophen 325 mg / HYDROcodone bitartrate 5 mg oral tablet (20 sources) Opioid Agonist Start: 09-12-2022 take 1 tablet by mouth every six hours Hydrocodone-Aceta minophen Active 1 TABLET PO EVERY 6 HOURS September 12, 2022 1:00am Start: 08-13-2022 End: 12-24-2024 take 1 tablet by mouth every six hours as needed for pain Hydrocodone-Acetaminophen 5-325 mg table t Active 1 {tbl} PO EVERY 6 HOURS NEEDED as needed for Pain 10 3 0 December 24, 2024 Muscle strain of chest wall Strain of muscle and tendon of front wall of thorax, initial encounter Comment on above: twenty amLODIPine 5 mg oral tablet (20 sources) Dihydropyridine Calcium Channel Ronaldo Start: take 1 tablet by mouth once daily Amlodipine 5 mg Tablet Active 5 mg PO DAILY September 12, 2022 1:00am take 1 mg by mouth once daily [...] mouth once a day cholecalciferol (vitamin d3) [id number] Alessia Farah hydroCHLOROthiazide 25 mg oral tablet (1 source) Thiazide Diuretic hydroCHLOROthi azide (HYDRODiuril) 25 MG tablet Active ketoconazole 20 mg/ml topical cream (1 source) Azole Antifungal Star t: 03-05 24 ketoconazole (NIZOral) 2 % cream 1 APPLICATION TO (AFFECTED) SKIN 2 TIMES PER DAY 03/17/2024 Active losartan potassium 50 mg oral tablet (20 sources) Angiotensin 2 Receptor Ronaldo Star t: 08-07 0 23 take 1 tablet by mouth once daily Losartan 50 mg Tablet Active 50 mg PO DAILY September 12, 2022 1:00am rosuvastatin calcium 5 mg oral tablet (19 sources) HMG-CoA Reductase Inhibitor Star t: 08-06 23 take 1 tablet by mouth once daily Rosuvastatin 5 mg Tablet Active 5 mg PO DAILY September 12, 2022 1:00am tadalafil 20 mg oral tablet (1 source) Phosphodiesterase 5 Inhibitor tadalafil (Cialis) 2 0 MG tablet Active Vit C,V-Fj-Kjwwn-Lutein-Zeax an (Preservision Areds-2) 250-90-40-1 mg Capsule (5 sources) Star t: 020 8 take 2 capsules by mouth once daily as needed Vit C,V-Bu-Xkymx-Lutein-Waldemar melissa (Preservision Areds-2) 250-90-40-1 mg Capsule Active 1 {tbl} PO DAILY as needed for NOT PRN September 12, 2022 1:00am Start: 09-12-2022 Vit C,E-Zn-Char Filter Operator Helper ch-Gvkgei-Gsavng (Preservision Areds-2) 250-90-40-1 mg Capsule Active 1 TABLET PO DAILY September 12, 2022 1:00am Start: 09-12-2022 Vit C,E-Zn-Char Filter Operator Helper eh-Eaziem-Xamfax (Preservision Areds-2) 250-90-40-1 mg Capsule Active 1 [...] Quantity: 1 {Each} Refills: 0 Ordered: 28-Aug-2022 Simi Louis MD, MD, Dana M Start : 28-Aug-2022 Active ALBUTEROL SULFAT E HFA 108 (90 Base) MCG/ACT AERS albuterol sulfate [id number] Irlanda Marsh AT Ascorbic Acid / Beta Carotene / [...] Quantity: 60 {Capsule} Refills: 0 Ordered: 21-May-2023 Chano MENDIOLA, Simi Christian MD Start : 21-May-2023 Active Start: 05-21-2023 coenzyme Q10 3 00 mg oral capsule 2 Capsule daily for 0 days Quantity: 60 {Capsule} Refills: 0 Ordered: 21-May-2023 Chano MENDIOLA, Simi Christian MD Start : 21-May-2023 Active Start: 11-27-2022 coenzyme Q10 3 00 mg oral capsule 2 Capsule daily for 0 days Quantity: 60 {Capsule} Refills: 0 Ordered: 27-Nov-2022 Chano MENDIOLA, Simi Christian MD Start : 27-Nov-2022 Active Start: 08-28-2022 coenzyme Q10 1 00 mg oral capsule 2 Capsule daily for 0 days Quantity: 60 {Capsule} Refills: 0 Ordered: 27-Nov-2022 Franco Asif LPNcy Start : 28-Aug-2022 Active Problems Active Problems Problem Classification Problem Date Documented Da te Episodic/Chronic Acute bronchitis (20 sources) Acute bronchitis; Translations: [Acute bronchitis, complicated] 07-27-2022 Episodic Alcohol-related disorders (2 sources) Alcoholic fibrosis and sclerosis of liver; 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] Onset: 03-12-2025 Chronic Anal and rectal conditions (1 source) [...] (20 sources) Coronary atherosclerosis; Translations: [Atherosclerosis of [place] coronary artery with stable angina pectoris, unspecified whether [place] or transplanted heart] 08-28-2022 Chronic Comment on above: CCTA 2-23 mild-mod Diseases of white blood cells (20 sources) Lymphocytosis; Translations: [Lymphocytosis] 08-28-2022 Chronic Comment on above: absolute count up pt was really sick 2 weeks prior willrecheck Disorders of lipid metabolism (20 sources) Hyperlipidemia; Translations: [Hyperlipidemia, mild] 08-28-2022 Chronic Comment on above: on crestor Essential hypertension (20 sources) Benign hypertension; Translations: [Hypertension, benign] Onset: 06-15-2025 08-28-2022 Chronic Immunizations and screening for infectious [...] joint replacement] Onset: 08-23-2021 08-23-2021 Chronic Other lower respiratory disease (2 sources) Cough; Translations: [Cough] 12-24-2024 Episodic Other nutritional; endocrine; and metabolic disorders (20 sources) Overweight in adulthood with body mass index of 25 or more but less than 30; Translations: [BMI 28.0-28.9,adult] 08-28-2022 Episodic Other screening for suspected conditions (not mental disorders or infectious disease) (20 sources) Patient encounter status; Translations: [Encounter for prostate cancer screening] Onset: 06-15-2025 08-28-2022 Episodic Residual codes; unclassified (20 sources) Family history of malignant melanoma; Translations: [Family history of melanoma] 08-28-2022 Episodic Comment on above: jovanny sullivan 5-23 Sprains and strains (2 sources) Strain of muscle of chest wall; Translations: [...] Classification Problem Date Documented Da te Episodic/Chronic Other connective tissue disease (1 source) Pain in right arm; Translations: [Pain in right arm] Onset: 12-15-2024 Episodic Other nervous system disorders (1 source) Paresthesia of skin; Translations: [Paresthesia of skin] Onset: 12-15-2024 Episodic Unclassified (1 source) Problem Unclassified (20 sources) Unspecified Diagnosis 09-03-2022 Results Test Name Value Interpretation Reference Range Facility Urine Cultureon 06-16-2025 [facility] Identification and sensitivity to follow. Alpha hemolytic organism [place] Count 11,000-25,000 Normal [facility] Comment on above: Performed By: #### L 502.0250, L500.4050, M100.2200, L300.4310, L3300.0700, L300.3900, L400.0001, L3110.0100, L100.0100 ####[facility] [address] [place], [address] AFP, Tumor Markeron 06-15-20 25 AFP TUMOR ALONDRA 2.6 ng/mL Normal 0.0-8.4 [facility] Comment on above: Order Comment: N Result Comment: [facility] [employer] Electrochemiluminescence Immunoassay (ECLIA) Values obtained with different assay methods or kits cannot be used interchangeably. Results cannot be interpreted as absolute evidence of the presence or absence of malignant disease. This test is not interpretable in females. Performed at: [address] [id number] Electric Blanket Packer: Raffaele Huddleston PhD, Phone: [phone] Performed By: #### L 502.0250, L500.4050, M100.2200, L300.4310, L3300.0700, L300.3900, L400.0001, L3110.0100, L100.0100 ####[facility] [address] [place], [place], [phone](230) PSA Total (Rflx Free)on 06-05 COMMENT Comment Normal . [facility] Comment on above: Result Comment: The percent free PSA is performed on a reflex basis only when the total PSA is between 4.0 and 10.0 ng/mL. Performed By: #### L 502.0250, L500.4050, M100.2200, L300.4310, L3300.0700, L300.3900, L400.0001, L3110.0100, L100.0100 ####[facility] [address] [place], [place], [phone](301) PSA, TOTAL 1.4 ng/mL Normal 0.0-4.0 [facility] Comment on above: Result Comment: Ml valverde ECLIA methodology. According to the [place] [employer], Serum PSA should decrease and remain at undetectable levels after radical prostatectomy. The AUA defines biochemical recurrence as an initial PSA value 0.2 ng/mL or greater followed by a subsequent confirmatory PSA value 0.2 ng/mL or greater. Values obtained with different assay methods or kits cannot be used interchangeably. Results cannot be interpreted as absolute evidence of the presence or absence of malignant disease. Performed By: #### L 502.0250, L500.4050, M100.2200, L300.4310, L3300.0700, L300.3900, L400.0001, L3110.0100, L100.0100 ####[facility] [address] [place], [place], [phone]) CBC W/Diff, Automatedon 06-05 Absolute Lymph 0.72 X10 3/uL Low 0.83-4.51 [facility] Comment on above: Performed By: #### L 502.0250, L500.4050, M100.2200, L300.4310, L3300.0700, L300.3900, L400.0001, L3110.0100, L100.0100 #### [facility] [address] [place], [address] Absolute Neut 3.4 X10 3/uL Normal 2.0-7.7 [facility] Comment on above: Performed By: #### L 502.0250, L500.4050, M100.2200, L300.4310, L3300.0700, L300.3900, L400.0001, L3110.0100, L100.0100 #### [facility] [address] [facility], [address] Basophils/100 WBC (Bld) 0.8 % Normal 0-1 [facility] Comment on above: Performed By: #### L 502.0250, L500.4050, M100.2200, L300.4310, L3300.0700, L300.3900, L400.0001, L3110.0100, L100.0100 #### [facility] [address] [place], [address] Eosinophils/100 WBC (Bld) 2.5 % Normal 0-5 [facility] Comment on above: Performed By: #### L 502.0250, L500.4050, M100.2200, L300.4310, L3300.0700, L300.3900, L400.0001, L3110.0100, L100.0100 #### [facility] [address] [place], [address] Erythrocyte distribution width (RBC) [Ratio] 12.7 % Normal 11.6-14.6 [facility] Comment on above: Performed By: #### L 502.0250, L500.4050, M100.2200, L300.4310, L3300.0700, L300.3900, L400.0001, L3110.0100, L100.0100 #### [facility] [address] [place], [address] (809) Hematocrit (Bld) [Volume fraction] 44.4 % Normal 40-54 [facility] Comment on above: Performed By: #### L 502.0250, L500.4050, M100.2200, L300.4310, L3300.0700, L300.3900, L400.0001, L3110.0100, L100.0100 #### [facility] [address] [place], [address] (708) Hemoglobin (Bld) [Mass/Vol] 15.2 g/dL Normal 13.0-16.5 [facility] Comment on above: Performed By: #### L 502.0250, L500.4050, M100.2200, L300.4310, L3300.0700, L300.3900, L400.0001, L3110.0100, L100.0100 #### [facility] [address] [place], [address] (202) IG% 1.000 High 0.0-0.9 [facility] Comment on above: Result Comment: IG% - Immature Granulocytes (promyelocytes, myelocytes and metamyelocytes) > 1% indicates that a LEFT SHIFT is Present. Performed By: #### L 502.0250, L500.4050, M100.2200, L300.4310, L3300.0700, L300.3900, L400.0001, L3110.0100, L100.0100 #### [facility] [address] [place], [address] (040 Lymphocytes/100 WBC (Bld) 13.8 % Low 19-41 [facility] Comment on above: Performed By: #### L 502.0250, L500.4050, M100.2200, L300.4310, L3300.0700, L300.3900, L400.0001, L3110.0100, L100.0100 #### [facility] [address] [place], [address] MCH (RBC) [Entitic mass] 33.3 pg High 27.0-32.0 [facility] Comment on above: Performed By: #### L 502.0250, L500.4050, M100.2200, L300.4310, L3300.0700, L300.3900, L400.0001, L3110.0100, L100.0100 #### [facility] [address] [place], [address] MCHC (RBC) [Mass/Vol] 34.2 g/dL Normal 32-36 [facility] Comment on above: Performed By: #### L 502.0250, L500.4050, M100.2200, L300.4310, L3300.0700, L300.3900, L400.0001, L3110.0100, L100.0100 #### [facility] [address] [place], [address] MCV (RBC) [Entitic vol] 97.4 fL High 80-94 [facility] Comment on above: Performed By: #### L 502.0250, L500.4050, M100.2200, L300.4310, L3300.0700, L300.3900, L400.0001, L3110.0100, L100.0100 #### [facility] [address] [place], [address] Monocytes/100 WBC (Bld) 16.0 % High 0-10 [facility] Comment on above: Performed By: #### L 502.0250, L500.4050, M100.2200, L300.4310, L3300.0700, L300.3900, L400.0001, L3110.0100, L100.0100 #### [facility] [address] [place], [address] Neutrophils/100 WBC (Bld) 65.9 % Normal 47-70 [facility] Comment on above: Performed By: #### L 502.0250, L500.4050, M100.2200, L300.4310, L3300.0700, L300.3900, L400.0001, L3110.0100, L100.0100 #### [facility] [address] [place], [address] Nucleated RBC (Bld) [#/Vol] 0 10*3/uL Normal 0-5 [facility] Comment on above: Performed By: #### L 502.0250, L500.4050, M100.2200, L300.4310, L3300.0700, L300.3900, L400.0001, L3110.0100, L100.0100 #### [facility] [address] [place], [address] Platelet mean volume (Bld) [Entitic vol] 10.7 fL Normal 6.2-12.0 [facility] Comment on above: Performed By: #### L 502.0250, L500.4050, M100.2200, L300.4310, L3300.0700, L300.3900, L400.0001, L3110.0100, L100.0100 #### [facility] [address] [place], [address] Platelets (Bld) [#/Vol] 147 10*3/uL Low 150-450 [facility] Comment on above: Performed By: #### L 502.0250, L500.4050, M100.2200, L300.4310, L3300.0700, L300.3900, L400.0001, L3110.0100, L100.0100 #### [facility] [address] [place], [address] RBC (Bld) [#/Vol] 4.56 10*6/uL Low 4.6-6.2 [facility] Comment on above: Performed By: #### L 502.0250, L500.4050, M100.2200, L300.4310, L3300.0700, L300.3900, L400.0001, L3110.0100, L100.0100 #### [facility] [address] [place], [address] ([phone]) RDW SD 45.2 fl High 35.1-43.9 [facility] Comment on above: Performed By: #### L 502.0250, L500.4050, M100.2200, L300.4310, L3300.0700, L300.3900, L400.0001, L3110.0100, L100.0100 #### [facility] [address] [place], [address] WBC (Bld) [#/Vol] 5.2 10*3/uL Normal 4.4-11.0 [facility] Comment on above: Performed By: #### L 502.0250, L500.4050, M100.2200, L300.4310, L3300.0700, L300.3900, L400.0001, L3110.0100, L100.0100 #### [facility] [address] [place], [address] Comprehensive Metabolic Prof [facility] 06-14-2025 Albumin [Mass/Vol] 4.3 g/dL Normal 3.4-4.8 [facility] Comment on above: Performed By: #### L 502.0250, L500.4050, M100.2200, L300.4310, L3300.0700, L300.3900, L400.0001, L3110.0100, L100.0100 #### [facility] [address] [place], [address] Albumin/Globulin [Mass ratio] 2.6 {ratio} High 0.9-2.4 [facility] Comment on above: Performed By: #### L 502.0250, L500.4050, M100.2200, L300.4310, L3300.0700, L300.3900, L400.0001, L3110.0100, L100.0100 #### [facility] [address] [place], [place], [phone] (407) ALK PHOS 147 U/L High 40-129 [facility] Comment on above: Performed By: #### L 502.0250, L500.4050, M100.2200, L300.4310, L3300.0700, L300.3900, L400.0001, L3110.0100, L100.0100 #### [facility] [address] [place], [place], [phone] ALT [Catalytic activity/Vol] 30 U/L Normal <=46 [facility] Comment on above: Performed By: #### L 502.0250, L500.4050, M100.2200, L300.4310, L3300.0700, L300.3900, L400.0001, L3110.0100, L100.0100 #### [facility] [address] [place], [place], [phone] AST [Catalytic activity/Vol] 26 U/L Normal <=37 [facility] Comment on above: Performed By: #### L 502.0250, L500.4050, M100.2200, L300.4310, L3300.0700, L300.3900, L400.0001, L3110.0100, L100.0100 #### [facility] [address] [place], [place], [phone] BUN/CRE UNABLE TO CALCULATE Low 10-20 [facility] Comment on above: Performed By: #### L 502.0250, L500.4050, M100.2200, L300.4310, L3300.0700, L300.3900, L400.0001, L3110.0100, L100.0100 #### [facility] [address] [place], [address] Calcium [Mass/Vol] 9.1 mg/dL Normal 7.6-11.0 [facility] Comment on above: Performed By: #### L 502.0250, L500.4050, M100.2200, L300.4310, L3300.0700, L300.3900, L400.0001, L3110.0100, L100.0100 #### [facility] [address] [place], [address] Chloride [Moles/Vol] 105 mmol/L Normal 98-108 [facility] Comment on above: Performed By: #### L 502.0250, L500.4050, M100.2200, L300.4310, L3300.0700, L300.3900, L400.0001, L3110.0100, L100.0100 #### [facility] [address] [place], [address] CO2 [Moles/Vol] 24.5 mmol/L Normal 21.0-32.0 [facility] Comment on above: Performed By: #### L 502.0250, L500.4050, M100.2200, L300.4310, L3300.0700, L300.3900, L400.0001, L3110.0100, L100.0100 #### [facility] [address] [place], [address] Creatinine [Mass/Vol] 0.81 mg/dL Normal 0.70-1.20 [facility] Comment on above: Performed By: #### L 502.0250, L500.4050, M100.2200, L300.4310, L3300.0700, L300.3900, L400.0001, L3110.0100, L100.0100 #### [facility] [address] [place], [address] GAP 11 Normal 5-15 [facility] Comment on above: Performed By: #### L 502.0250, L500.4050, M100.2200, L300.4310, L3300.0700, L300.3900, L400.0001, L3110.0100, L100.0100 #### [facility] [address] [place], [address] GFR/1.73 sq M.predicted among non-blacks MDRD (S/P/Bld) [Vol rate/Area] 94 mL/min/{1.73_m2} Normal >60 [facility] Comment on above: Result Comment: mL/m in/1.73m2 CKD-EPI Creatinine Equation (2020) Performed By: #### L 502.0250, L500.4050, M100.2200, L300.4310, L3300.0700, L300.3900, L400.0001, L3110.0100, L100.0100 #### [facility] [address] [place], [address] Globulin (S) [Mass/Vol] 1.6 g/dL Low 2.2-4.2 [facility] Comment on above: Performed By: #### L 502.0250, L500.4050, M100.2200, L300.4310, L3300.0700, L300.3900, L400.0001, L3110.0100, L100.0100 #### [facility] [address] [place], [address] Glucose [Mass/Vol] 106 mg/dL High 70-99 [facility] Comment on above: Performed By: #### L 502.0250, L500.4050, M100.2200, L300.4310, L3300.0700, L300.3900, L400.0001, L3110.0100, L100.0100 #### [facility] [address] [place], [address] Potassium [Moles/Vol] 3.9 mmol/L Normal 3.3-5.1 [facility] Comment on above: Performed By: #### L 502.0250, L500.4050, M100.2200, L300.4310, L3300.0700, L300.3900, L400.0001, L3110.0100, L100.0100 #### [facility] [address] [place], [address] Sodium [Moles/Vol] 141 mmol/L Normal 133-145 [facility] Comment on above: Performed By: #### L 502.0250, L500.4050, M100.2200, L300.4310, L3300.0700, L300.3900, L400.0001, L3110.0100, L100.0100 #### [facility] [address] [place], [address] T BILI < 0.15 Normal 0.00-1.30 [facility] Comment on above: Performed By: #### L 502.0250, L500.4050, M100.2200, L300.4310, L3300.0700, L300.3900, L400.0001, L3110.0100, L100.0100 #### [facility] [address] [place], [address] T PROT 5.9 g/dL Normal 5.9-8.4 [facility] Comment on above: Performed By: #### L 502.0250, L500.4050, M100.2200, L300.4310, L3300.0700, L300.3900, L400.0001, L3110.0100, L100.0100 #### [facility] [address] [place], [address] Urea nitrogen [Mass/Vol] mg/dL Low 4-19 [facility] Comment on above: Performed By: #### L 502.0250, L500.4050, M100.2200, L300.4310, L3300.0700, L300.3900, L400.0001, L3110.0100, L100.0100 #### [facility] [address] [place], [address] Microalb:Creat Ratio,Random URon 06-14-2025 Creatinine [Mass/Vol] 345.00 mg/dL High 39.00-259.0 0 [facility] Comment on above: Performed By: #### L 502.0250, L500.4050, M100.2200, L300.4310, L3300.0700, L300.3900, L400.0001, L3110.0100, L100.0100 ####[facility] [address] [place], [address] MALB:CREAT 10.1 mg/g CRE Normal <30 mg/g CRE [facility] Comment on above: Performed By: #### L 502.0250, L500.4050, M100.2200, L300.4310, L3300.0700, L300.3900, L400.0001, L3110.0100, L100.0100 ####[facility] [address] [place], [address] MICROALBUMIN,UR 34.7 mg/L Normal <20 mg/L [facility] Comment on above: Performed By: #### L 502.0250, L500.4050, M100.2200, L300.4310, L3300.0700, L300.3900, L400.0001, L3110.0100, L100.0100 ####[facility] [address] [place], [address] Partial Thromboplast Timeon 06-14-2025 aPTT Coag (Bld) [Time] 37.2 s High 24.1-36.2 [facility] Comment on above: Performed By: #### L 502.0250, L500.4050, M100.2200, L300.4310, L3300.0700, L300.3900, L400.0001, L3110.0100, L100.0100 #### [facility] [address] [place], [address] Prothrombin Time w/INRon INR Coag (PPP) [Relative time] 1.0 {INR} Normal [facility] Comment on above: Performed By: #### L 502.0250, L500.4050, M100.2200, L300.4310, L3300.0700, L300.3900, L400.0001, L3110.0100, L100.0100 #### [facility] [address] [facility] [place], [place], [phone] PT Coag (PPP) [Time] 13.7 s Normal 11.7-14.9 [facility] Comment on above: Performed By: #### L 502.0250, L500.4050, M100.2200, L300.4310, L3300.0700, L300.3900, L400.0001, L3110.0100, L100.0100 #### [facility] [address] [facility] [place], [place], [id number] Urinalysis, Completeon 06-14 Mucus Ql (Urine sed) 2+ /hpf Normal [facility] Comment on above: Order Comment: Urine , Random Performed By: #### L 502.0250, L500.4050, M100.2200, L300.4310, L3300.0700, L300.3900, L400.0001, L3110.0100, L100.0100 #### [facility] [address] [place], [address] RBC 0-5 SEEN Normal 0-5 [facility] Comment on above: Order Comment: Urine , Random Performed By: #### L 502.0250, L500.4050, M100.2200, L300.4310, L3300.0700, L300.3900, L400.0001, L3110.0100, L100.0100 #### [facility] [address] [place], [address] WBC 0-5 SEEN Normal 0-5 [facility] Comment on above: Order Comment: Urine , Random Performed By: #### L 502.0250, L500.4050, M100.2200, L300.4310, L3300.0700, L300.3900, L400.0001, L3110.0100, L100.0100 #### [facility] [address] [place], [address] BACTERIA 0 SEEN Normal None Seen [facility] Comment on above: Order Comment: Urine , Random Performed By: #### L 502.0250, L500.4050, M100.2200, L300.4310, L3300.0700, L300.3900, L400.0001, L3110.0100, L100.0100 #### [facility] [address] [facility] [place], [address] EPI,SQUAMOUS 0 SEEN Normal 0-5 [facility] Comment on above: Order Comment: Urine , Random Performed By: #### L 502.0250, L500.4050, M100.2200, L300.4310, L3300.0700, L300.3900, L400.0001, L3110.0100, L100.0100 #### [facility] [address] [place], [address] ABD Limited w/ Elastographyo n 03-05-2025 ABD Limited w/ Elastography [facility] [address] [place] [address] ABD Limited w/ Elastography MR#: [id number] Acct: [id number] Name: FLOWERREID HOFF NADREA Rep #: [id number] : 1955 M 69 From: Michele cardona MD PCP: Dr. Simi Louis MD Status: REG CLI Study: ABD Limited w/ Elastography Date of Exam: 08/29 Exam# [id number] Ordering Dr: Simi Louis MD PROCEDURE: ABD LIMITED W/ ELASTOGRAPHY REASON FOR EXAM: ULTRASOUND, ABDOMEN, LIMITED Alcoholic fibrosis. COMPARISON: None. TECHNIQUE: Right upper quadrant abdominal ultrasound. [facility] shear wave elastography for non- invasive assessment of liver tissue stiffness. [employer] EPIQ Elite. FINDINGS: LIVER: Size: Unremarkable Length: 15.8 cm Echotexture: Normal Contour: Nodular Lesions: None identified Elastography: EQI Med: 7.4 kPa EQI Med Mich: 1.6 m/s IQR/Med: 22.5 %* GALLBLADDER: Normal COMMON BILE DUCT: Normal measuring 3.1 mm . PANCREAS: Normal Visualized portions of the right kidney are unremarkable. No right upper quadrant ascites. US/ABD Limited w/ Elastography IMPRESSION: Jwho-um-plcufpjp hepatic fibrosis. Diffuse fatty infiltration of the liver. Reference Values: SRU <1.37 m/s (5.7kPa): No to mild fibrosis 1.37 m/s - 2.2 m/s: Moderate to severe fibrosis >2.2 m/s (15kPa): Significant fibrosis / cirrhosis METAVIR Score F2 or higher: 1.34 m/s (5.7kPa) F3 or higher: 1.55 m/s (7.3kPa) F4: 1.80 m/s (10kPa) * If the IQR/Med is >30%, the variance in the measurements is a large and the accuracy of the measurement may be in question. Reading Location: [id number] CC: Dr. Simi Louis MD Health Management Consultant: Signed Normal [facility] 12 Lead EKGon 12-24-[address] [facility] Cardiovascular Services [address] [place] [address] 12 Lead EKG 12/24/247 MR#: [id number] Acct: [id number] Name: REID CRENSHAW Rep #: [id number] : 1955 69 From: Jesica Vigil MD [...] Abnormal ECG Confirmed by TAYLOR MENDIOLA, NAFISA ([id number]), script editor NASIR HINOJOSA ([id number]) on 12/29/2024 6:47:52 AM Referred By: Confirmed By: NAFISA VIGIL MD 12/29/24 0647 Date Jesica Vigil MD CC: Dr. Simi Louis MD; Dr. Alvaro Hairston DO Signed Normal [facility] Emergency Department Summary on 12-24-2024 Emergency Department Summary [facility] Medical Records Department [address] [place] [address] Emergency Department Summary 12/24/24 MR#: [id number] Acct: [id number] Name: REID CRENSHAW Rep #: [id number] : 1955 69 From: Alvaro Hairston DO [...] few days. Patient denies any sputum production. [facility] Medical History (Updated 12/24/24 @ 03:[address] Alvaro Hairston, ) COPD, moderate Hypertension Osteoarthritis Home Medications ???Medication [...] NOT PRN 3 Unknown History mg-copper 1 xi-mfrspq-puxhcc capsule (PreserVision AREDS-2) hydrocodone-acetaminophen 5-325mg 1 tab PO Q6H PRN PRN [...] of acute process as above. Reading Location: [facility] X-rays of the left ribs were obtained. There are 5 views. On my independent interpretation, there is (more content not included)... Normal [facility] Ribs Uni Min 3V w/PA Cheston 12-24-2024 Ribs Uni Min 3V w/PA Chest [facility] Imaging Services [address] [place] [address] Ribs Uni Min 3V w/PA Chest MR#: [id number] Acct: [id number] Name: REID CRENSHAW Rep #: [id number] : 1955 M 69 From: Jacques Aragon MD PCP: Dr. Simi Louis MD Status: REG ER Study: Ribs Uni Min 3V w/PA Chest Date of Exam: 12/24 Exam# [id number] Ordering Dr: Alvaro Hairston DO PROCEDURE: RIBS [...] of acute process as above. Reading Location: [id number] CC: Dr. Simi Louis MD; Dr. Alvaro Hairston DO Health Management Consultant: Signed Normal [facility] NCS and/or EMG Patienton NCS and/or EMG Patient [facility] Pulmonary Services/Neurology [address] [place] [address] MR#: [id number] Acct: [id number] Name: REID CRENSHAW Rep #: [id number] : 1955 69 From: Jose Martin Nicolas MD Referring Dr: Simi Louis MD Status: REG CLI Location: [facility] Date: 11/18/24 Sex: M C NCS and/or [...] Multi Select Codes Neurology Neurology Interp Codes: 53407-03 Musc test done w/n test comp (interp) and 88315-14 Nrv cndj test 7- 8 studies (interp) 11/18/24 1340 Date Jose Martin Nicolas MD CC: Dr. Jose Martin Nicolas MD; Dr. Simi Louis MD Date Dictated: 11/18/241336 Date Transcribed: 11/18/241336 Health Management Consultant: TRAE Signed Normal [facility] Office Visiton 04-22-2024 Follow-up visit [id number] Paolo Crenshaw 1955 M Date Provider Department Center 04/22/2024 [id number] [facility] None Family History Family Status - Relation Status Age at Mother Father Sister Alive Brother Alive Level of Service:15252 [place] OFFICE/OUTPATIENT NEW LOW MDM 30 MINUTES Reason for Visit and Comments: New Patient [542] - evaluation for fistula, builds up then drain a bloody type drainage,denies pain/fevers/trouble with urniation/BM, hx of fistula for [address] Lackey [0] - Pt unaccompanied [facility] Progress Noteon 04-22-2024 Progress Note [facility] Assessment: Diagnosis Plan 1. Anal fistula @PLANBEGINPHANTO@ Plan: No further workup or treatment as [...] Review of Systems as recordedby the medical physiologist has been reviewed by me, and I [...] MD on 04/23/2024 at 12:55 PM. Normal [facility] 36on 03-20-2024 36 Patient returned lesley l, states currently the fistula will build up and then drain a bloody type drainage, as to in past it was a slow drain daily, he feels well denies fevers/pain/swelling/nause a/vomiting/no trouble with urination/bowel movements. Patient has been scheduled with Dr. Crespo 04/22/24. Normal [facility] 36 Left VM for patient to return call assess symptoms, and schedule accordingly. Normal [facility] HEPATIC FUNCTION PANEL (8007 [id number])Ordered By: Mechanical Laboratory Technician on 11-08-2022 Albumin [Mass/Vol] 4.4 g/dL Normal 3.8-4.8 [facility] Work Phone: Comment on above: in three months (tanesha roximately); PATIENT WAS FASTINGPERFORMED BY: [facility] [id number] [facility] [id number] ALP [Catalytic activity/Vol] 160 U/L Abnormal 44-121 [facility] Work Phone: Comment on above: in three months (tanesha roximately); PATIENT WAS FASTINGPERFORMED BY: CB [facility] [id number] [address] [place] [id number] ALT [Catalytic activity/Vol] 16 U/L Normal 0-44 [facility] Work Phone: Comment on above: in three months (tanesha roximately); PATIENT WAS FASTINGPERFORMED BY: CB [facility] [id number] [place] [id number] AST [Catalytic activity/Vol] 14 U/L Normal 0-40 [facility] Work Phone: Comment on above: in three months (tanesha roximately); PATIENT WAS FASTINGPERFORMED BY: CB [facility] [id number] [place] [id number] Bilirubin [Mass/Vol] 1.0 mg/dL Normal 0.0-1.2 [facility] Work Phone: Comment on above: in three months (tanesha roximately); PATIENT WAS FASTINGPERFORMED BY: CB [facility] [id number] [place] [id number] Bilirubin.direct [Mass/Vol] 0.32 mg/dL Normal 0.00-0.40 [facility]; [facility] Work Phone: Comment on above: in three months (tanesha roximately); PATIENT WAS FASTINGPERFORMED BY: CB [facility] [id number] [place] [id number] Protein [Mass/Vol] 6.5 g/dL Normal 6.0-8.5 [facility] Work Phone: Comment on above: in three months (tanesha roximately); PATIENT WAS FASTINGPERFORMED BY: CB [facility] [id number] [place] [id number] LIPID PANEL ([id number])Ordered B y: Mechanical Laboratory Technician on 11-08-2022 Cholesterol [Mass/Vol] 135 mg/dL Normal 100-199 [facility]; [facility] Work Phone: Comment on above: in three months (tanesha roximately); PATIENT WAS FASTINGPERFORMED BY: MARCOS [facility] [id number] [place] [id number] Cholesterol in HDL [Mass/Vol] 51 mg/dL Normal [facility]; [facility] Work Phone: Comment on above: in three months (tanesha roximately); PATIENT WAS FASTINGPERFORMED BY: CB [facility] [id number] [place] [id number] Triglyceride [Mass/Vol] 73 mg/dL Normal 0-149 [facility]; [facility] Work Phone: Comment on above: in three months (tanesha roximately); PATIENT WAS FASTINGPERFORMED BY: MARCOS [facility] [id number] [place] [id number] LIPID PANEL (16749) 15 mg/dL Normal 5-40 [facility]; [facility] Work Phone: Comment on above: in three months (tanesha roximately); PATIENT WAS FASTINGPERFORMED BY: MARCOS [facility] [id number] [place] [id number] LIPID PANEL (38859) 69 mg/dL Normal 0-99 [facility]; [facility] Work Phone: Comment on above: in three months (tanesha roximately); PATIENT WAS FASTINGPERFORMED BY: CB [facility] [id number] [address] [place] [id number] LIPID PANEL (07038) 1.4 {ratio} Normal 0.0-3.6 [facility]; [facility] Work Phone: Comment on above: LDL/HDL Ratio Men Wo men 1/2 Avg.Risk 1.0 1.5 Avg.Risk 3.6 3.2 2X Avg.Risk 6.2 5.0 3X Avg.Risk 8.0 6.1 in three months (tanesha roximately); PATIENT WAS FASTINGPERFORMED BY: [employer] [id number] [facility] [id number] PSA (PROSTATE SPECIFIC ANTIG EN) (V76.44)Ordered By: Mechanical Laboratory Technician on 08-16-2022 Prostate specific Ag [Mass/Vol] 1.0 ng/mL Normal 0.0-4.0 [facility]; [facility] Work Phone: Comment on above: Mil ECLIA methodol ogy. .According to the [place] [employer], Serum PSA shoulddecrease and remain [...] malignant disease. PATIENT NOT FASTINGP ERFORMED BY: CallFire6370 [facility] [id number] Clinical Summary: Crystal barrera 09-20-2021 75 OP Visit Invalid Interpretation Code [facility] Work Phone: Absolute lymphocyte counton 09-01-2021 Lymphocytes Auto (Unsp spec) [#/Vol] 3.07 10*3/uL 0.83-4.51 [facility] Work Phone: Amorphous sediment detection in urine sediment by light microscopyon 09-01-2021 Amorphous sediment LM Ql (Urine sed) 2+ [facility] Work Phone: Basophil percentageon 2021 Basophil percentage 0 SEEN /hpf [facility] Work Phone: Basophils/100 WBC (Bld) 0.5 % 0-1 [facility] Work Phone: Bilirubin [Mass/Vol] 0.90 mg/dL 0.20-1.00 [facility] Work Phone: Comment on above: For patients on eltr ombopag therapy, use of Dimension [place] TBIL is not recommended. Chloride [Moles/Vol] 105 mmol/L 98-107 [facility] Work Phone: Cholesterol [Mass/Vol] 164 mg/dL <200 [facility] Work Phone: Comment on above: <200 mg/dL Desirable 200-240 mg/dL Borderline >240 mg/dL High Risk Eosinophils/100 WBC (Bld) 1.7 % 0-5 [facility] Work Phone: Glucose [Mass/Vol] 83 mg/dL 74-106 [facility] Work Phone: Neutrophils (Bld) [#/Vol] 3.6 10*3/uL 2.0-7.7 [facility] Work Phone: Neutrophils/100 WBC (Bld) 47.5 % 47-70 [facility] Work Phone: Potassium [Moles/Vol] 3.8 mmol/L 3.5-5.1 [facility] Work Phone: Protein [Mass/Vol] 7.4 g/dL 6.4-8.2 [facility] Work Phone: Sodium [Moles/Vol] 136 mmol/L 136-145 [facility] Work Phone: Triglyceride [Mass/Vol] 138 mg/dL [facility] Work Phone: Comment on above: The drugs N-Acetylcy steine and Metamizole may falsely depress this assay.Serum Triglycerides Reference Interval Normal <150 mg/dL Borderline high 150 - 199 mg/dL High 200 - 499 mg/dL Very High > or = 500 mg/dL WBC (Bld) [#/Vol] 7.5 10*3/uL 4.4-11.0 [facility] Work Phone: Bilirubin Test strip Ql (U)o n 09-01-2021 Bilirubin Ql (U) Negative Negative [facility] Work Phone: Blood erythrocytes count (nu mber/volume)on 09-01-2021 RBC (Bld) [#/Vol] 4.73 10*6/uL 4.6-6.2 [facility] Work Phone: Blood hemoglobin measurement (mass/volume)on 09-01-2021 Hemoglobin (Bld) [Mass/Vol] 15.6 g/dL 13.0-16.5 [facility] Work Phone: Blood lymphocytes/100 leukoc yteson 09-01-2021 Lymphocytes/100 WBC (Bld) 41.0 % 19-41 [facility] Work Phone: Blood monocytes/100 leukocyt eson 09-01-2021 Monocytes/100 WBC (Bld) 8.8 % 0-10 [facility] Work Phone: Blood platelet mean volumeon 09-01-2021 Platelet mean volume (Bld) [Entitic vol] 9.9 fL 6.2-12.0 [facility] Work Phone: Determination of erythrocyte mean corpuscular volume (MCV)on 09-01-2021 MCV (RBC) [Entitic vol] 95.3 fL 80-94 [facility] Work Phone: Hematocrit Auto (Bld) [Volum e fraction]on 09-01-2021 Hematocrit (Bld) [Volume fraction] 45.1 % 40-54 [facility] Work Phone: Ketones Test strip Ql (U)on 09-01-2021 Ketones Ql (U) Negative Negative [facility] Work Phone: Laboratory - Chemistry and C hemistry - challengeon 09-01-2021 ALP [Catalytic activity/Vol] 146 U/L 45-117 [facility] Work Phone: ALT [Catalytic activity/Vol] 23 U/L 16-61 [facility] Work Phone: CO2 [Moles/Vol] 26.0 mmol/L 21.0-32.0 [facility] Work Phone: Globulin (S) [Mass/Vol] 3.6 g/dL 2.2-4.2 [facility] Work Phone: Magnesium [Mass/Vol] 2.6 mg/dL 1.6-2.6 [facility] Work Phone: Urea nitrogen/Creatini ne [Mass ratio] 15.1 mg/mg 10-20 [facility] Work Phone: Laboratory - Hematology and Cell countson 09-01-2021 Erythrocyte distribution width (RBC) [Entitic vol] 45.4 fL 35.1-43.9 [facility] Work Phone: Erythrocyte distribution width (RBC) [Ratio] 13.1 % 11.6-14.6 [facility] Work Phone: Immature granulocytes/100 WBC (Bld) 0.500 % 0.0-0.9 [facility] Work Phone: Comment on above: IG% - Immature Granu locytes (promyelocytes, myelocytes and metamyelocytes) > 1% indicates that a LEFT SHIFT is Present. MCH (RBC) [Entitic mass] 33.0 pg 27.0-32.0 [facility] Work Phone: Nucleated RBC/100 WBC (Bld) [Ratio] 0 % 0-5 [facility] Work Phone: MCHC Auto (RBC) [Mass/Vol]on 09-01-2021 MCHC (RBC) [Mass/Vol] 34.6 g/dL 32-36 [facility] Work Phone: Mucus LM Ql (Urine sed)on Mucus Ql (Urine sed) 0 SEEN /hpf [facility] Work Phone: Nitrite Test strip Ql (U)on 09-01-2021 Nitrite Ql (U) Negative Negative [facility] Work Phone: No Panel Informationon 09-01 Estimated GFR (MDRD) Amer 114 mL/min >60 [facility] Work Phone: Comment on above: GFR Calc Estimated GFR (MDRD) Non-Af Amer 94 mL/min >60 [facility] Work Phone: Comment on above: Non- GFR Calc Thyroid Stimulating Hormone (TSH) 1.65 uIU/mL 0.358-3.74 [facility] Work Phone: Platelets bldon 09-01-2021 Platelets (Bld) [#/Vol] 171 10*3/uL 150-450 [facility] Work Phone: Protein Test strip Ql (U)on 09-01-2021 Protein Ql (U) Negative Negative [facility] Work Phone: Serum or plasma albumin ivett urement (mass/volume)on 09-01-2021 Albumin [Mass/Vol] 3.8 g/dL 3.2-5.0 [facility] Work Phone: Serum or plasma albumin/glob ulin mass ratioon 09-01-2021 Albumin/Globulin [Mass ratio] 1.1 {ratio} 0.9-2.4 [facility] Work Phone: Serum or plasma calcium ivett urement (mass/volume)on 09-01-2021 Calcium [Mass/Vol] 8.8 mg/dL 8.5-10.1 [facility] Work Phone: Serum or plasma cholesterol in HDL measurement (mass/volume)on 09-01-2021 Cholesterol in HDL [Mass/Vol] 42 mg/dL [facility] Work Phone: Comment on above: The drugs N-Acetylcy steine and Metamizole may falsely depress this assay. Reference Range HDL <40 mg/dL Low HDL Cholesterol HDL >or= 60 mg/dL High HDL Cholesterol Serum or plasma cholesterol in VLDL measurement (mass/volume)on 09-01-2021 Cholesterol in VLDL [Mass/Vol] 28 mg/dL 5-40 [facility] Work Phone: Serum or plasma creatinine m easurement (mass/volume)on 09-01-2021 Creatinine [Mass/Vol] 0.86 mg/dL 0.70-1.30 [facility] Work Phone: Comment on above: The validity of the calculated GFR & GFRAA in patients over 70 years has not been determined. Clinical correlation is essential. Serum or plasma low density lipoprotein (LDL) cholesterol measurement (mass/volume)on 09-01-2021 Cholesterol in LDL [Mass/Vol] 94 mg/dL 0-130 [facility] Work Phone: Serum or plasma urea nitroge n measurement (mass/volume)on 09-01-2021 Urea nitrogen [Mass/Vol] 13 mg/dL 7-18 [facility] Work Phone: Squamous epithelial cells de tection in urine sediment by light microscopyon 09-01-2021 Epithelial cells.squamous LM Ql (Urine sed) 0 SEEN /hpf [facility] Work Phone: Thin prep Papanicolaou smear with manual screeningon 09-01-2021 Thin prep Papanicolaou smear with manual screening 15 U/L 15-37 [facility] Work Phone: Thin prep Papanicolaou smear with manual screening 5 5-15 [facility] Work Phone: Urine blood detectionon 08-06 RBC Ql (U) Negative Negative [facility] Work Phone: RBC Ql (U) 0 SEEN /hpf [facility] Work Phone: Urine clarityon 09-01-2021 Clarity (U) Sl. Cloudy Clear [facility] Work Phone: Urine color determinationon 09-01-2021 Color (U) Yellow Yellow [facility] Work Phone: Urine glucose detectionon Glucose Ql (U) Normal mg/dl Normal [facility] Work Phone: Urine leukocyte esterase det ection by dipstickon 09-01-2021 Leukocyte esterase Test strip Ql (U) Negative Negative [facility] Work Phone: Urine pHon 09-01-2021 pH (U) 8.0 [pH] [facility] Work Phone: Urine sediment bacteria coun t by microscopy (number/high power field)on 09-01-2021 Bacteria LM.HPF (Urine sed) [#/Area] 0 /[HPF] None Seen [facility] Work Phone: Urine specific gravity measu rementon 09-01-2021 Specific gravity (U) [Rel density] 1.015 [facility] Work Phone: Urobilinogen Auto test strip Ql (U)on 09-01-2021 Urobilinogen Ql (U) Normal mg/dl Normal [facility] Work Phone: Vital Signs Date Time Vital Sign Value Performing Clinician Facility 12-24-2024 03:50-0400 Body temperature 98.2 [degF] Dr. Simi Louis MD Work Phone: [facility] 12-24-2024 03:50-0400 Diastolic blood pressure 79 mm[Hg] Dr. Simi Louis MD Work Phone: [facility] 12-24-2024 03:50-0400 Heart rate 73 /min Dr. Simi Louis MD Work Phone: [facility] 12-24-2024 03:50-0400 Respiratory rate 14 /min Dr. Simi Louis MD Work Phone: [facility] 12-24-2024 03:50-0400 SaO2% (BldA) [Mass fraction] 99 % Dr. Simi Louis MD Work Phone: [facility] 12-24-2024 03:50-0400 Systolic blood pressure 123 mm[Hg] Dr. Simi Louis MD Work Phone: [facility] 12-24-2024 01:48-0400 Body height 177.[address] Simi Louis MD Work Phone: [facility] 04-22-2024 10:21-0400 Body height 179.1 cm Reid Crespo MD Work Phone: [facility] 04-22-2024 10:21-0400 Body mass index (BMI) [Ratio] 30.19 kg/m2 Reid Crespo MD Work Phone: [facility] 04-22-2024 10:21-0400 Body temperature 98.1 [degF] Reid Crespo MD Work Phone: [facility] 04-22-2024 10:21-0400 Body weight 96.8 kg Reid Crespo MD Work Phone: [facility] 04-22-2024 10:21-0400 Diastolic blood pressure 84 mm[Hg] Reid Crespo MD Work Phone: [facility] 04-22-2024 10:21-0400 Heart rate 72 /min Reid Crespo MD Work Phone: [facility] 04-22-2024 10:21-0400 Systolic blood pressure 130 mm[Hg] Reid Crespo MD Work Phone: [facility] 05-21-2023 11:20-0400 Body height 177.8 cm Rossi Asif LPN [facility] Work Phone: 05-21-2023 11:20-0400 Body mass index (BMI) [Ratio] 30.13 kg/m2 Rossi Asif LPN [facility]; [facility] Work Phone: 05-21-2023 11:20-0400 Body surface area Derived from formula 2.13 m2 Rossi Asif LPN [facility]; [facility] Work Phone: 05-21-2023 11:20-0400 Body temperature 998.1 [degF] Rossi Asif LPN [facility]; [facility] Work Phone: 05-21-2023 11:20-0400 Body weight 95.26 kg Rossi Asif LPN [facility]; [facility] Work Phone: 05-21-2023 11:20-0400 Diastolic blood pressure 72 mm[Hg] Rossi Asif LPN [facility]; [facility] Work Phone: Comment on above: Patient Position: Si tting; Cuff Location: Left Arm; Cuff Size: Standard 05-21-2023 11:20-0400 Heart rate 75 /min Rossi Asif LPN [facility]; [facility] Work Phone: Comment on above: Pattern: Regular 05-21-2023 11:20-0400 Respiratory rate 16 /min Rossi Asif [place] [facility] Work Phone: Comment on above: Pattern: Unlabored 05-21-2023 11:20-0400 SaO2% (BldA) [Mass fraction] 95 % Rossi Asif [place] [facility] Work Phone: Comment on above: Room air 05-21-2023 11:20-0400 Systolic blood pressure 118 mm[Hg] Rossi Asif [place] [facility] Work Phone: Comment on above: Patient Position: Si tting; Cuff Location: Left Arm; Cuff Size: Standard 11-27-2022 10:03-0400 Body height 177.8 cm Rossi Asif [place] [facility] Work Phone: 11-27-2022 10:03-0400 Body mass index (BMI) [Ratio] 29.34 kg/m2 Rossi Asif [place] [facility] Work Phone: 11-27-2022 10:03-0400 Body surface area Derived from formula 2.11 m2 Rossi Asif [place] [facility] Work Phone: 11-27-2022 10:03-0400 Body temperature 98.1 [degF] Rossisalma Asif [place] [facility] Work Phone: 11-27-2022 10:03-0400 Body weight 92.76 kg Rossi Asif [place] [facility] Work Phone: 11-27-2022 10:03-0400 Diastolic blood pressure 72 mm[Hg] Rossisalma Asif [place] [facility]; [facility] Work Phone: Comment on above: Patient Position: Si tting; Cuff Location: Left Arm; Cuff Size: Standard 11-27-2022 10:03-0400 Heart rate 84 /min Rossi Laya [place] [facility] Work Phone: Comment on above: Pattern: Regular 11-27-2022 10:03-0400 Respiratory rate 16 /min Rossi Asif LPN [facility]; [facility] Work Phone: Comment on above: Pattern: Unlabored 11-27-2022 10:03-0400 SaO2% (BldA) [Mass fraction] 97 % Rossi Asif LPN [facility]; [facility] Work Phone: Comment on above: Room air 11-27-2022 10:03-0400 Systolic blood pressure 130 mm[Hg] Rossi Asif LPN [facility]; [facility] Work Phone: Comment on above: Patient Position: Si tting; Cuff Location: Left Arm; Cuff Size: Standard 09-12-2022 13:22-0500 Body height 177.[address] David Araiza Work Phone: [facility] 09-12-2022 13:22-0500 Body mass index (BMI) [Ratio] 29.4 kg/m2 Dr. David Araiza Work Phone: [facility] 09-12-2022 13:22-0500 Body temperature 98.7 [degF] Dr. David Araiza Work Phone: [facility] 09-12-2022 13:22-0500 Body weight 92.[address] David Araiza Work Phone: [facility] 09-12-2022 13:22-0500 Diastolic blood pressure 78 mm[Hg] Dr. David Araiza Work Phone: [facility] 09-12-2022 13:22-0500 Heart rate 68 /min Dr. David Araiza Work Phone: [facility] 09-12-2022 13:22-0500 Respiratory rate 16 /min Dr. David Araiza Work Phone: [facility] 09-12-2022 13:22-0500 SaO2% (BldA) [Mass fraction] 99 % Dr. David Araiza Work Phone: [facility] 09-12-2022 13:22-0500 Systolic blood pressure 159 mm[Hg] Dr. David Araiza Work Phone: [facility] 08-28-2022 09:29-0500 Body height 177.8 cm Rossi Asif LPN [facility]; [facility] Work Phone: 08-28-2022 09:29-0500 Body mass index (BMI) [Ratio] 28.77 kg/m2 Rossi Asif LPN [facility]; [facility] Work Phone: 08-28-2022 09:29-0500 Body surface area Derived from formula 2.09 m2 Rossi Asif LPN [facility]; [facility] [...] 09:29-0500 Systolic blood pressure 128 mm[Hg] Rossi Laya BENDER [facility]; [facility] Work Phone: Comment on above: Patient Position: Si tting; Cuff Location: Left Arm; Cuff Size: Standard NEGATED: Highlighted [id number] 09:17-0500 Body height 180.34 cm [facility] Work Phone: NEGATED: Highlighted [id number] 09:17-0500 Body height 180 cm [facility] Work Phone: NEGATED: Highlighted [id number] 09:17-0500 Body mass index (BMI) [Ratio] 29.25 kg/m2 [facility] Work Phone: NEGATED: Highlighted [id number] 09:17-0500 Body temperature 97.7 [degF] [facility] Work Phone: NEGATED: Highlighted [id number] 09:17-0500 Body weight 94.8 kg [facility] Work Phone: NEGATED: Highlighted [id number] 09:17-0500 Body weight 95 kg [facility] Work Phone: Encounters Encounter Date Encounter Type Care Provider Facility Start: 06-14-2025 ambulatory Simi Louis Facility:[facility] Start: 03-05-2025 End: 03-05-[address] Simi Louis MD Work Phone: -Ultrasound [facility] Start: 03-05-2025 End: 03-05-[address] Simi Louis MD -Ultrasound [facility] Work Phone: Start: 03-05-2025 End: 03-05-2025 ambulatory Simi Louis Facility:[facility] Start: 12-24-2024 End: 12-24-2024 Emergency department patient visit Dr. Simi Louis MD Work Phone: -Emergency Department Work Phone: Start: 11-18-2024 ambulatory Simi Louis Facility:[facility] Start: 11-18-2024 Non-patient / Non-visit Dr. Jose Martin salinas MD -[facility]- Start: 11-18-2024 End: 11-18-[address] Simi Louis MD Work Phone: [facility] Work Phone: Start: 11-18-2024 End: 11-18-[address] Simi Louis MD -Pulmonary Services/Neurology Work Phone: Start: 11-18-2024 End: 11-18-2024 ambulatory Simi Louis Facility:[facility] Start: 04-22-2024 End: 04-22-2024 Office outpatient new 30 minutes Reid Crespo MD Work Phone: [facility] [place] Comment on above: Anal fistula (Primar y Dx) Start: 04-22-2024 End: 04-22-2024 ambulatory REID CRESPO [facility] Start: 05-21-2023 End: 05-21-2023 Office outpatient visit 25 minutes Simi Louis MD Work Phone: [facility] Start: 05-21-2023 End: 05-21-2023 Patient encounter status Simi Louis MD Work Phone: [facility]; [facility] Work Phone: Start: 05-21-2023 Review Simi Singh Work Phone: [facility] Start: 11-28-2022 End: 11-28-2022 ambulatory [facility] Work Phone: Start: 11-28-2022 End: 11-28-2022 Discharged Recurring [facility] Work Phone: Start: 11-27-2022 ambulatory Simi Louis MD [facility] Internal [facility] Start: 11-27-2022 End: [...] / Non-visit Dr. Kylie Araiza Work Phone: [facility] Start: 09-12-2022 End: 09-12-[address] David Araiza Work Phone: [facility] Work Phone: Start: 09-12-2022 End: 09-12-[address] David Araiza Work Phone: [facility] Start: 09-07-2022 End: 09-07-2022 Phone Encounter Simi Louis MD Work Phone: [facility] Start: 09-03-2022 End: 09-03-2022 Prescription Refill Simi Louis MD Work Phone: [facility] Start: 08-28-2022 End: 08-28-2022 Patient encounter procedure Simi Louis MD Work Phone: [facility] Start: 08-28-2022 End: 08-28-2022 Patient encounter status Rossi Asif LPN [facility]; [facility] [...] [facility] Start: 09-01-2021 End: 09-01-2021 Discharged Recurring [facility] Start: 09-01-2021 End: 09-01-2021 Patient encounter procedure [facility] Procedures Date Procedure Procedure Detail Performing Clinician Start: 03-05-2025 Ultrasound elastogra phy of liver Dr. Simi Louis MD Work Phone: Start: 12-24-2024 X-ray of chest posteroanterior view Dr. Simi Louis MD Work Phone: Start: 09-12-2022 End: 09-12-[address] Procedure Note: See Note; NOTES: [facility] Imaging Services [address] [place] [address] 09/12/22 1656 MR#: [id number] Acct: [id number] Name: REID CRENSHAW Rep #: [id number] : 1955 67 From: Donnie Kim MD [...] of plaque Conclusion: Moderate nonobstructive plaque noted 09/12/228 <Electronically signed by Donnie Kim MD> Date [...] Lung Screening Procedure Note: See Note; NOTES: [facility] Imaging Services [address] [place] [address] Lung Screening MR#: [id number] Acct: [id number] Name: REID CRENSHAW Rep #: [id number] : 1955 M 67 From: Michele cardona MD PCP: Dr. David Araiza MD Status: REG CLI Study: Low Dose CT Lung Screening Date of Exam: 09/12 Exam# [id number] Ordering Dr: Simi Louis MD STUDY: LOW [...] Simi Louis MD; Dr. David Araiza MD Health Management Consultant: Signed Simi Louis MD Work Phone: Start: 09-20-2021 End: 09-20-2021 BP scrn no perf at interval Chance Giovanny [employer] PA-C Work Phone: Start: 09-20-2021 End: 09-20-2021 Calc BMI out nrm sky nof/u Alex Baltazar [employer] PA-C Work Phone: Start: 09-20-2021 End: 09-20-2021 Current tobacco non-user cad cap copd pv dm Alex Baltazar [employer] PA-C Work Phone: Start: 09-20-2021 End: 09-20-2021 Docrev cur meds by makayla Baltazar [employer] PA-C Work Phone: Start: 09-20-2021 End: 09-20-2021 Pain doc pos and plan Alex Baltazar [employer] PA-C Work Phone: Start: 09-20-2021 End: 09-20-2021 Patient encounter procedure Alex Baltazar [employer] PA-C Work Phone: Start: 09-20-2021 End: 09-20-2021 Radiologic examination pelvis 1/2 views Alex Baltazar [employer] PA-C Work Phone: left NELLA 11-21 Simi Warren i, MD Work Phone: left NELLA 11-21 Rossi Asif LPN right NELLA 2-23 Simi Warren i, MD Work Phone: right NELLA 2-23 Rossi Asif LPN NEGATED: Highlighted rowStart: 09-20-2021 End: 09-20-2021 Documentation of current medications Ida Henry Plan of Treatment Date Care Activity Detail Author Start: 10-05-2027 DTaP/Tdap/Td Vaccine s (2 - Td or Tdap) DTaP/Tdap/Td Vaccines (2 - Td or Tdap) [facility] Start: 12-24-2024 [facility] Start: 04-05-2024 COVID-19 Vaccine ( season) COVID-19 Vaccine () [facility] Start: 04-05-2024 Influenza vaccination Influenza Vacc ine (#1) [facility] Start: 05-21-2023 Procedure Education Eprescribe d prescriptions (G8553) [facility]; [facility] Work Phone: Start: 11-27-2022 Procedure Education Eprescribe d prescriptions (G8553) [facility]; [facility] Work Phone: Start: 11-27-2022 Lipid panel LIPID PANEL (65443) [facility]; [facility] Work Phone: Start: 11-27-2022 Comprehensive metabo lic panel METABOLIC PANEL, COMPREHENSIVE (10929) [facility]; [facility] Work Phone: Start: 11-27-2022 Blood count manual c ell count each CBC with auto diff (49457) [facility]; [facility] Work Phone: Start: 08-28-2022 Hepatic function panel HEPATIC FUNCTION PANEL (55143) [facility]; [facility] Work Phone: Comment on above: in three months (tanesha roximately) Start: 08-28-2022 Lipid panel LIPID PANEL (55360) [facility]; [facility] Work Phone: Comment on above: in three months (tanesha roximately) Start: 08-28-2022 Procedure Education Eprescribe d prescriptions (G8553) [facility]; [facility] Work Phone: Start: 08-28-2022 Hepatitis c antibody HEPATITIS C ANTIBODY (16881) [facility]; [facility] Work Phone: Start: 08-28-2022 C-reactive protein h igh sensitivity C-REACT PROT HIGH SENS(hsCRP) (20325) [facility]; [facility] Work Phone: Start: 08-28-2022 Lactate dehydrogenas e ldh LDH (LD) (LACTATE DEHYDROGENASE) (90953) [facility]; [facility] Work Phone: Start: 08-28-2022 Blood smear peripher al interp phys w/writ report BLOOD SMEAR INTERPRETATION (45979) [facility]; [facility] Work Phone: Start: 08-28-2022 Blood count complete auto&auto difrntl wbc CBC, PLATELETS & AUT DIFF (33413) [facility]; [facility] Work Phone: Start: 06-20-2022 End: 06-20-2022 Patient encounter procedure Appointment [facility] Work Phone: Start: 09-20-2021 End: 09-20-2021 Patient encounter procedure Appointment [facility] Work Phone: Start: 08-25-2020 Pneumococcal Vaccine : 65+ Years (2 of 2 - PCV) Pneumococcal Vaccine: 65+ Years (2 of 2 - PCV) [facility] Start: 2003 Zoster Vaccines (1 o f 2) Zoster Vaccines (1 of 2) [facility] Start: 1971 Diabetes mellitus screening Diabetes Screening [facility] Start: 1971 Hepatitis C screening Hepatitis C Sc reening [facility] Start: 1965 Depression Screening Depression Scre ening [facility] Start: 1953 Lipid panel Lipid Panel [facility] Start: 1955 Medicare Annual Wellness (AWV) Medicare Annual Wellness (AWV) [facility] Start: 1955 Screening for malign ant neoplasm of colon [facility] Patient Education [facility] Work Phone: Patient referral [facility] Work Phone: [facility]; [facility] Work Phone: [facility]; [facility] Work Phone: Immunizations Immunization Date Immunization Notes Care Provider [facility] 05-21-2023 influenza, injectabl e, quadrivalent, contains preservative Simi Louis MD Work Phone: [facility]; [facility] Work Phone: Comment on above: Site: Right Arm InfluenzaFlulaval pr efilled syringe 0.5ml Lot: [id number]: 02/02/2024 [facility] 05-21-2023 influenza virus vacc ine, unspecified formulation Reid Crespo MD Work Phone: [facility] 10-27-2020 Covid (Pfizer) [facility] 10-06-2020 Covid (Pfizer) [facility] Payers Date Payer Category Payer Self-pay [id number] 2022 Private Health Insurance [employer]LEMENT [id number] 2022-Present [address] [address] [place] [address] Supplement [id number] 2022 Private Health Insurance CLI [id number] 2018 Medicare MEDICARE MEDICAR E PART A AND B [id number] 2018-Present [address] [place] [address] Medicare [id number] 2018 Medicare [id number] 1955 Unknown [id number] Unknown [id number] Unknown [id number] Unknown Unknown [facility] PACKAGE PLAN [id number] Unknown [id number] Unknown [id number] Unknown [id number] Unknown [id number] Unknown [id number] Social History Date Type Detail Facility Start: 09-12-2022 End: 09-12-2022 Assertion Unknown if ever smoked [facility] Work Phone: Start: 1955 Sex Assigned At Male W [facility] Alcohol Use Alcohol Use [facility] Work Phone: Comment on above: 5 beers a day no oth er etoh, CAGE negative, month without and not shakes, no DUI. quit in 1999 heavy Start: 04-22-2024 End: 12-24-2024 Tobacco smoking status NHIS Ex-smoker [facility] History of tobacco use Current smoker [facility] History of tobacco use Cigarette Smoker [facility] Start: 04-22-2024 Tobacco use and exposure Smokeless tobacco non-user [facility] Start: 04-22-2024 Alcoholic beverage intake Current drinker of alcohol (finding) [facility] Start: 1955 Sex assigned at Not on file [facility] Gender identity Not on file [facility] Start: 11-23-2024 Sex Male (finding) [facility] Mental Status Date Assessment Result Facility 09-12-2022 Cognitive function Voice/Name [facility] Work Phone: Clinical Notes 02-18-2023 to 03-05-2025 Reid Crespo MD - 04/22/2024 10:15 AM EDT Note Date & Type Note Facility 03-05-2025 Radiology Diagnostic study note [facility] Imaging Services [address] [place], [place] [address] ABD Limited w/ Elastography MR#: [id number] Acct: [id number] Name: REID CRENSHAW Rep #: [id number] : 1955 M 69 From: Judah Kenney MD PCP: Dr. Simi Louis MD Status: REG C LI Study:ABD Limited w/ Elastography Date of Exa m: 03/05/25 Exam# [id number] Ordering Dr: Simi Louis MD PROCEDURE: ABD LIMITED W/ ELASTOGRAPHY REASON FOR EXAM: ULTRASOUND, ABDOMEN, LIMITED Alcoholic fibrosis. COMPARISON: None. TECHNIQUE: Right upper quadrant abdominal ultrasound. [facility] ElastQ Imaging shear wave elastography for non-invasive assessment of liver tissue stiffness. [facility] EPIQ Elite. FINDINGS: LIVER: Size: Unremarkable Length: 15.8 cm Echotexture: Normal Contour: Nodular Lesions: None identified Elastography: EQI Med: 7.4 kPa EQI Med Mich: 1.6 m/s IQR/Med: 22.5 %* GALLBLADDER: Normal COMMON BILE DUCT: Normal measuring 3.1 mm . PANCREAS: Normal Visualized portions of the right kidney are unremarkable. No right upper quadrant ascites. US/ABD Limited w/ Elastography IMPRESSION: Impb-ke-cgwskcvg hepatic fibrosis. Diffuse fatty infiltration of the liver. Reference Values: SRU <1.37 m/s (5.7kPa): No to mild fibrosis 1.37 m/s - 2.2 m/s: Moderate to severe fibrosis >2.2 m/s (15kPa): Significant fibrosis / cirrhosis METAVIR Score F2 or higher: 1.34 m/s (5.7kPa) F3 or higher: 1.55 m/s (7.3kPa) F4: 1.80 m/s (10kPa) * If the IQR/Med is >30%, the variance in the measurements is a large and the accuracy of the measurement may be in question. Reading Location: [facility] CC: Dr. Simi Louis MD ~ Health Management Consultant: Signed [facility] 12-24-2024 Radiology Diagnostic study note [facility] [place] [address] Ribs Uni Min 3V w/PA Chest MR#: [id number] Acct: [id number] Name: REID CRENSHAW Rep #: [id number] : 1955 M 69 From: Jared Aragon MD PCP: Dr. Simi Louis MD Status: REG E R Study:Ribs Uni Min 3V w/PA Chest Date of Exam : 12/24/24 Exam# [id number] Ordering Dr: Alvaro Hairston DO PROCEDURE: RIBS [...] of acute process as above. Reading Location: [facility] CC: Dr. Simi Louis MD; Dr. Alvaro Hairston DO ~ Health Management Consultant: Signed [facility] 11-18-2024 Procedure note [facility] 04-22-2024 History of Present illness Narrative Formatting [...] Review of Systems as recordedby the medical physiologist has been reviewed by me, and I [...] at 12:55 PM. documented in this encounter [facility] 02-18-2023 Discharge summary Note Date/Time February 18, 2023 12:26pm 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 Thank you for the referral of thispatient. Sincerely, Suzy Pinon, DPT Balance/Gait/Functional tests Balance/Special Test Scores TUG Test Time Seconds: 9.82 Tug Test: <10 sec.=free mobile WOMAC Total Score: 28 WOMAC Percentage: 70.8400 <Electronically signed by Suzy Pinon DPT> 02/18/23 1226 CC: Dr. Matt Short MD; Dr. David Araiza MD ~ ELR Signed [facility] Work Phone: Evaluation noteThere may be information available, but it has not been provided by the sender.[facility] Work Phone: Evaluation noteNo assessment information available [facility] Work Phone: Evaluation note* Diagnosis Anal fistula- Primary [facility] Description Start Date Completed [facility] Work Phone: Instructions* Name Dates Details Patient Instructions Indication:BMI 28.0-28.9,adult Start:28-Aug-2022 Instruction Type:Provider Instructions for Treatment How to Access Health Informa tion Online using Patient Portal and 3rd [employer] Apps Indication:BMI 28.0-28.9,adult Start:28-Aug-2022 Instruction Type:Patient Education [facility]; [facility] Work Phone: instructions* Name Dates Details Patient Instructions Indication:BMI 28.0-28.9,adult Start:28-Aug-2022 Instruction Type:Provider Instructions for Treatment How to Access Health Informa tion Online using Patient Portal and [employer]rd [employer] Apps Indication:BMI 28.0-28.9,adult Start:28-Aug-2022 Instruction Type:Patient Education [facility]; [facility] Work Phone: instructions* Name Dates Details Patient Instructions Indication:BMI 28.0-28.9,adult Start:28-Aug-2022 Instruction Type:Provider Instructions for Treatment How to Access Health Informa tion Online using Patient Portal and [employer]rd [employer] Apps Indication:BMI 28.0-28.9,adult Start:28-Aug-2022 Instruction Type:Patient Education [facility]; [facility] Work Phone: instructions* Name Dates Details Patient Instructions Indication:BMI 28.0-28.9,adult Start:28-Aug-2022 Instruction Type:Provider Instructions for Treatment How to Access Health Informa tion Online using Patient Portal and [employer]rd [employer] Apps Indication:BMI 28.0-28.9,adult Start:28-Aug-2022 Instruction Type:Patient Education [facility]; [facility] Work Phone: instructions* Name Dates Details Patient Instructions Indication:BMI 28.0-28.9,adult Start:28-Aug-2022 Instruction Type:Provider Instructions for Treatment How to Access Health Informa tion Online using Patient Portal and [employer]rd [employer] Apps Indication:BMI 28.0-28.9,adult Start:28-Aug-2022 Instruction Type:Patient Education [facility]; [facility] Work Phone: instructions* Name Dates Details Patient Instructions Indication:BMI 28.0-28.9,adult Start:27-Nov-2022 Instruction Type:Provider Instructions for Treatment How to Access Health Informa tion Online using Patient Portal and 3rd [employer] Apps Indication:BMI 28.0-28.9,adult Start:27-Nov-2022 Instruction Type:Patient Education Patient Instructions Indication:BMI 28.0-28.9,adult Start:28-Aug-2022 Instruction Type:Provider Instructions for Treatment How to Access Health Informa tion Online using Patient Portal and [employer]rd [employer] Apps Indication:BMI 28.0-28.9,adult Start:28-Aug-2022 Instruction Type:Patient Education [facility]; [facility] Work Phone: instructions* Name Dates Details Patient Instructions Indication:BMI 28.0-28.9,adult Start:27-Nov-2022 Instruction Type:Provider Instructions for Treatment How to Access Health Informa tion Online using Patient Portal and 3rd [employer] Apps Indication:BMI 28.0-28.9,adult Start:27-Nov-2022 Instruction Type:Patient Education Patient Instructions Indication:BMI 28.0-28.9,adult Start:28-Aug-2022 Instruction Type:Provider Instructions for Treatment How to Access Health Informa tion Online using Patient Portal and 3rd [employer] Apps Indication:BMI 28.0-28.9,adult Start:28-Aug-2022 Instruction Type:Patient Education [facility]; [facility] Work Phone: instructions* Name Dates Details Patient Instructions Indication:Tobacco abuse, in remission (Renamed from Tobacco dependence in remission) Start:21-May-2023 Instruction Type:Provider Instructions for Treatment How to Access Health Informa tion Online using Patient Portal and 3rd [employer] Apps Indication:Tobacco abuse, in remission (Renamed from Tobacco dependence in remission) Start:21-May-2023 Instruction Type:Patient Education Patient Instructions Indication:BMI 28.0-28.9,adult Start:27-Nov-2022 Instruction Type:Provider Instructions for Treatment How to Access Health Informa tion Online using Patient Portal and 3rd [employer] Apps Indication:BMI 28.0-28.9,adult Start:27-Nov-2022 Instruction Type:Patient Education Patient Instructions Indication:BMI 28.0-28.9,adult Start:28-Aug-2022 Instruction Type:Provider Instructions for Treatment How to Access Health Informa tion Online using Patient Portal and [employer]rd [employer] Apps Indication:BMI 28.0-28.9,adult Start:28-Aug-2022 Instruction Type:Patient Education [facility]; [facility] Work Phone: Instructions* Name Dates Details Patient Instructions Indication:Tobacco abuse, in remission (Renamed from Tobacco dependence in remission) Start:21-May-2023 Instruction Type:Provider Instructions for Treatment How to Access Health Informa tion Online using Patient Portal and [employer]rd [employer] Apps Indication:Tobacco abuse, in remission (Renamed from Tobacco dependence in remission) Start:21-May-2023 Instruction Type:Patient Education Patient Instructions Indication:BMI 28.0-28.9,adult Start:27-Nov-2022 Instruction Type:Provider Instructions for Treatment How to Access Health Informa tion Online using Patient Portal and [employer]rd [employer] Apps Indication:BMI 28.0-28.9,adult Start:27-Nov-2022 Instruction Type:Patient Education Patient Instructions Indication:BMI 28.0-28.9,adult Start:28-Aug-2022 Instruction Type:Provider Instructions for Treatment How to Access Health Informa tion Online using Patient Portal and 3rd [employer] Apps Indication:BMI 28.0-28.9,adult Start:28-Aug-2022 Instruction Type:Patient Education [facility]; [facility] Work Phone: reason for referral (narrative)No reason for referral information availableWSelect [facility] Work Phone: Chief Complaint Chief Complaint Description Start Date left hip post Left total hip arthroplasty using a direct anterior approach on 06/23/2021 Preliminary chief co mplaint data, not yet signed by the author as of Advance Directives No Advanced Directives Records Found Name Dates Details Immunization Registry [place] - Effective on 05/21/2023. Expiration date unspecified Effective:21-May-2023 Name Dates Details Immunization Registry [place] - Effective on 05/21/2023. Expiration date unspecified Effective:21-May-2023 Advance Directive Response Recorded Date/ Time Do you have a Healthcare Power of Tape Recording Machine Operator? No December 24, 2024 1:53am Family History [...] rib pain December 24, 2024 1:47a m Chief Complaint Admit Date RUE; PARESTHESIA November 18, 2024 8:2 4am RUE; PARESTHESIA November 18, 2024 1:3 7pm rib pain December 24, 2024 1:47a m ALCOHOLIC FIBROSIS & SCLEROSIS OF LIVER March 05, 2025 9:41am Summary Purpose Additional Source Comments Reason for [...] Short MD Attending Provider, Referring Provider Active Pull Worker Relationship Specialty Start Date End Date Simi Louis MD [address] [place] [id number] PCP - General Internal Medicine 04/22/24 Team [...] End: December 24, 2024 Dr. Alvaro Hairston DO Emergency Provider Active Start: December 24, 2024 End: December 24, 2024 Team Status: Active Member Role/Relationship Status Dates Dr. Simi Louis MD Primary Care Provider Active Team Status: Inactive Member Role/Relationship Status Dates Dr. Simi Louis MD Primary Care Provider Active Start: November 18, 2024 End: November 18, 2024 Dr. Simi Louis MD Attending Provider Active Start: November 18, 2024 End: November 18, 2024 Dr. Simi Louis MD Referring Provider Active Start: November 18, 2024 End: November 18, 2024 Team Status: Active Member Role/Relationship Status Dates Dr. Simi Louis MD Primary Care Provider Active Start: November 18, 2024 Dr. Simi Louis MD Referring Provider Active Start: November 18, 2024 Dr. Simi Louis MD Other Provider Active Star t: November 18, 2024 Dr. Jose Martin Nicolas MD Attending Provider Active S tart: November 18, 2024 Team Status: Inactive Member Role/Relationship Status Dates Dr. Simi Louis MD Primary Care Provider Active Start: December 24, 2024 End: December 24, 2024 Dr. Alvaro Hairston DO Attending Provider Active Start: December 24, 2024 End: December 24, 2024 Dr. Alvaro Hairston DO Emergency Provider Active Start: December 24, 2024 End: December 24, 2024 Team Status: Inactive Member Role/Relationship Status Dates Dr. Simi Louis MD Primary Care Provider Active Start: March 05, 2025 End: March 05, 2025 Dr. Simi Louis MD Attending Provider Active Start: March 05, 2025 End: March 05, 2025 Dr. Simi Louis MD Referring Provider Active Start: March 05, 2025 End: March 05, 2025 (unrecognized sect ion and content) No Status Records FoundNo Status Records FoundNo Status Records Found INFORMATION SOURCE (unrecogn ized section and content) DATE CREATED AUTHOR 11/28/2022 [facility] DATE CREATED AUTHOR AUTHOR'S ORGANIZ ATION 04/24/2024 [facility]ly [facility] DATE CREATED AUTHOR AUTHOR'S ORGANIZ ATION 06/17/2025 [facility] FOR RECORDS PERTAINING TO PATIENTS WHO ARE [...] BE BASED ON THE PRIMARY CLINICAL RECORDS. [facility] provides no warranty or guarantee of the accuracy or completeness of information in this document.
== END | disposition home or self-care (01) ==
LOC: CT 13:43
PROVIDERS: PCP Internal Medicine; Referring Provider Internal Medicine; Visit Provider Internal Medicine
DX: Z12.2 Encounter for screening for malignant neoplasm of respiratory organs (principal); F17.210 Nicotine dependence, cigarettes, uncomplicated
CPT/HCPCS: 71271